=== PATIENT | male | born 1965 | race American Indian/Alaskan Native ===

== ENCOUNTER 2016-03-03 19:07 | Emergency (ER) | payer MEDICARE ==
--- NOTE | 2016-03-03 19:57 | Emergency Department Report ---
Chief Complaint: Sickle Cell Crisis Stated Complaint: SICKLE CELL PAIN Time Seen by Provider: 03/03/16 19:55 - HPI History of Present Illness: 50 y/o male complain of low back pain since this am .pt state that he have sickle cell and is current in a crisis . - ROS Review of Systems: per HPI - Exam Vital Signs: Vital Signs 03/03/16 19:13 Temperature 99.3 F Pulse Rate 87 Respiratory 16 Rate Blood Pressure 134/91 O2 Sat by Pulse 98 Oximetry Physical Exam: GENERAL: The patient is well-developed and well-nourished. Patient is in NAD. HENT: Normocephalic. Atraumatic. Patient has moist mucous membranes. Throat: No erythema, swelling or exudates. EYES: Extraocular motions are intact, PERRL NECK: Supple. No meningitic signs are noted. There is no adenopathy noted. CHEST/LUNGS: Clear to auscultation bilaterally. No wheezing, rales or rhonchi noted. There is no respiratory distress noted. HEART/CARDIOVASCULAR: Regular rate and rhythm. Normal S1 S2. No murmurs, rubs , clicks, or gallops. ABDOMEN: Abdomen is soft, nontender.. Bowel sounds normoactive. There is no abdominal distention. Negative rebound tenderness. : Deferred. SKIN: There is no rash. There is no edema. There is no diaphoresis. NEURO: The patient is A&Ox3. The patient has no focal neurologic deficits. MUSCULOSKELETAL: There is no tenderness or deformity. There is no limitation range of motion. PSYCH: Pt has appropriate mood and affect. MSE screening note: Focused history and physical exam performed. Due to findings the following was ordered: ED Disposition for MSE Condition: Stable
[2016-03-03 20:31] LABS: Hematocrit 21.1 % (35.5-45.6); Hemoglobin 7.6 gm/dl (11.8-15.2); Mean Corpuscular HGB Conc 36 % (32-34); Mean Corpuscular Hemoglobin 36 pg (28-32); Mean Corpuscular Volume 99 fl (84-94); Platelet Count 385 K/mm3 (140-440); Red Blood Count 2.13 M/mm3 (3.65-5.03); Reticulocyte % 7.79 % (0.78-2.58); White Blood Count 15.9 K/mm3 (4.5-11.0)
[2016-03-03 20:32] LABS: Red Cell Distribution Width 20.8 % (13.2-15.2)
[2016-03-03 20:40] LABS: BUN/Creatinine Ratio 12.85; Blood Urea Nitrogen 9 mg/dL (9-20); Calcium 8.8 mg/dL (8.4-10.2); Carbon Dioxide 24 mmol/L (22-30); Chloride 101.7 mmol/L (98-107); Glucose 98 mg/dL (75-100); Potassium 3.9 mmol/L (3.6-5.0); Sodium 138 mmol/L (137-145)
[2016-03-03 20:42] LABS: Anion Gap 16 mmol/L
[2016-03-03 21:18] LABS: Basophils % (Manual) 0 % (0.0-1.8); Blastocytes % (Manual) 0 %; Eosinophils % (Manual) 0 % (0.0-4.3)
[2016-03-03 21:19] LABS: Anisocytosis 1+; Microcytosis Few; Platelet Estimate Consistent w Auto; Sickle Cells 1+
[2016-03-03 21:20] LABS: Elliptocytes Few
[2016-03-03 21:21] LABS: Diff Status Complete
[2016-03-04] MEDS ORDERED: MORPHINE IM ONE
[2016-03-04] MEDS ORDERED: DILAUDID IM ONE (00:11)
[2016-03-04] MEDS ORDERED: PHENERGAN PO ONE (00:11)
[2016-03-04] MEDS ORDERED: MORPHINE ONE ×3 (00:14→00:15)
--- NOTE | 2016-03-04 00:20 | Emergency Department Report ---
HPI - General Chief Complaint: Sickle Cell Crisis Time Seen by Provider: 03/03/16 22:36 - HPI HPI: The patient's for 10-year-old male with a history of sickle cell disease, presents for evaluation of pain. The patient reports pain to the bilateral lower back since awakening this morning, greater than 12 hours prior to my evaluation. He states that his pain is 8 out of 10 in severity, throbbing in quality, exacerbated with movement of the lower back, consistent with previous episodes of sickle cell pain attacks. The patient denies blunt trauma to the back, fall, fever, chills, night sweats, saddle anesthesia, paresthesias, numbness or tingling in the legs, leg weakness, urine or bowel incontinence or retention, difficulty ambulating, or other focal neurological deficits. 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, Right hip AVN - Surgical History Past Surgical History?: No - Social History Smoking Status: Never Smoker Substance Use Type: None - Medications Home Medications: Home Medications Medication Instructions Recorded Confirmed Last Taken Type Folic Acid [Folvite] 1 mg PO QDAY #30 tablet 05/28/14 05/01/15 05/01/15 Rx HYDROcodone/APAP 7.5-325 [[place] 1 each PO Q6HR PRN #20 tablet 12/11/14 03/08/15 Unknown Rx 7.5/325] oxyCODONE /ACETAMINOPHEN [Percocet 1 - 2 tab PO Q6HR PRN #20 tablet 01/13/1508/16 Unknown Rx 5/325 mg] traMADol [Ultram 50 MG tab] 50 mg PO Q8HR PRN #30 tablet 01/13/15 03/08/15 Unknown Rx traMADol [Ultram] 50 mg PO Q6HR PRN #14 tablet 02/05/15 03/08/15 Unknown Rx traMADol [Ultram 50 MG tab] 50 mg PO Q6HR PRN #14 tablet 11/19/15 Unknown Rx oxyCODONE /ACETAMINOPHEN [Percocet 1 tab PO Q6HR PRN #14 tablet 03/04/16 Unknown Rx 5/325 mg] ED Review of Systems ROS: Stated complaint: SICKLE CELL PAIN Other details as noted in HPI Constitutional: denies: fever ENT: denies: throat or neck pain Respiratory: denies: cough, shortness of breath Cardiovascular: denies: chest pain Endocrine: denies unexplained weight loss or gain Gastrointestinal: denies: abdominal pain, nausea Genitourinary: denies: dysuria Musculoskeletal: reports back pain denies: leg swelling Skin: denies: rash Neurological: denies: headache Hematological/Lymphatic: denies: easy bleeding or easy bruising Psych: denies sadness or hopelessness Physical Exam - Physical Exam Vital Signs: Vital Signs 03/03/16 03/03/16 19:13 22:25 Temperature 99.3 F 98.6 F Pulse Rate 87 79 Respiratory 16 18 Rate Blood Pressure 134/91 Blood Pressure 123/73 [Right] O2 Sat by Pulse 98 98 Oximetry Physical Exam: General: well-nourished, well-developed, no acute distress Head: Normocephalic, atraumatic Eyes: normal sclera ENT: Mucous membranes are pink and moist Neck: trachea midline, neck supple, No neck stiffness, no cervical adenopathy Respiratory: Breath sounds equal bilaterally, no wheezing, rales, or rhonchi Cardio: S1 and S2 present, no murmurs, rubs, gallops, capillary refill is brisk Abdomen: Normoactive bowel sounds, soft abdomen, no rigidity, no guarding or rebound tenderness Chest WALL/Back: Tenderness to palpation present to bilateral lower lumbar paraspinal musculature, pain is elicited with flexion at the hip, normal active range of motion at the hip intact, no spinous step-off or obvious deformity, ipsi-lateral and contralateral straight leg raise tests are negative. On extremity testing, compartments are soft and pliable, no obvious gross motor strength deficit, 5+ motor strength, including extension of the great toe bilaterally, no muscular atrophy, spasticity, fasciculations, or clonus, no obvious gross sensation deficit including web space between 1st and 2nd toes, reflexes 2+ & symmetric on DTR testing at the knee and ankle joints, distal pulses intact. Musc: No pitting edema Skin: No rash Neuro: no facial drooping, normal speech Psych: Normal affect ED Course Vital Signs 03/03/16 03/03/16 19:13 22:25 Temperature 99.3 F 98.6 F Pulse Rate 87 79 Respiratory 16 18 Rate Blood Pressure 134/91 Blood Pressure 123/73 [Right] O2 Sat by Pulse 98 98 Oximetry ED Medical Decision Making - Lab Data Result diagrams: 03/03/16 20:05 03/03/16 20:05 - Medical Decision Making The patient was seen and examined by myself. The patient is placed on a groundwater monitoring technician and continuous pulse ox. On initial evaluation, the patient was found to be in no distress. No findings on exam concerning for cauda equina syndrome, spinal stenosis, epidural abscess, or other emergent etiology of back pain. As the patient has no midline tenderness on exam, no neuro deficits, and no findings concerning for emergent etiology of their back pain, imaging will not be obtained at this time. The patient is given an IM dose of morphine for his pain. Lab results reveal elevated reticulocyte count, and a stable hemoglobin level at patient baseline. Lab results otherwise are not concerning. The patient was reevaluated and reported that their pain was significantly improved. The patient is stable for discharge with outpatient follow-up. The patient is given follow-up and return instructions. The patient expressed understanding and agreed with the plan. The patient is discharged in stable condition. Critical care attestation.: If time is entered above; I have spent that time in minutes in the direct care of this critically ill patient, excluding procedure time. ED Disposition Clinical Impression: Sickle cell pain crisis Disposition: DISCHARGED TO HOME OR SELFCARE Is pt being admited?: No Does the pt Need Aspirin: No Condition: Stable Instructions: Sickle Cell Crisis (ED) Prescriptions: oxyCODONE /ACETAMINOPHEN [Percocet 5/325 mg] 1 tab PO Q6HR PRN #14 tablet PRN Reason: Pain Referrals: VAUGHN HOWARD JR, MD [Primary Care Provider] - 3-5 Days Time of Disposition: 00:12
[2016-03-04 00:44] VITALS: BP 122/70
== END 2016-03-04 00:43 | disposition home or self-care (01) ==
LOC: ED 19:07
DX: D57.00 Hb-SS disease with crisis, unspecified (principal)
CPT/HCPCS: 36415; 80048; 85007; 85025; 85045; 96372; 99284; J2270; Q0169

== ENCOUNTER 2016-03-27 20:25 | Emergency (ER) | payer MEDICARE ==
[2016-03-27] MEDS ORDERED: D5NS 0.2% 1,000 ML IV ONE (20:57)
[2016-03-27 22:03] LABS: Hematocrit 23.1 % (35.5-45.6); Hemoglobin 8.1 gm/dl (11.8-15.2); Mean Corpuscular HGB Conc 35 % (32-34); Mean Corpuscular Hemoglobin 35 pg (28-32); Mean Corpuscular Volume 100 fl (84-94); Platelet Count 399 K/mm3 (140-440); Red Blood Count 2.32 M/mm3 (3.65-5.03); Reticulocyte % 9.48 % (0.78-2.58); White Blood Count 14.6 K/mm3 (4.5-11.0)
[2016-03-27 22:08] LABS: Red Cell Distribution Width 22.6 % (13.2-15.2)
[2016-03-27 23:33] LABS: Blastocytes % (Manual) 0 %
[2016-03-27 23:34] LABS: Microcytosis 1+; Sickle Cells 2+; Target Cells 1+
[2016-03-27 23:35] LABS: Diff Status Complete; Large Platelets 2+; Macrocytosis 1+; Platelet Estimate Consistent w Auto
[2016-03-28] MEDS ORDERED: PHENERGAN PO ONE (02:13)
[2016-03-28] MEDS ORDERED: MORPHINE IM ONE (02:13)
--- NOTE | 2016-03-28 02:53 | Emergency Department Report ---
HPI - General Chief Complaint: Sickle Cell Crisis Time Seen by Provider: 03/28/16 02:04 - HPI HPI: This is a 51-year-old [place]er male who presents to the emergency department, dropped off by a coworker, with complaint of some low back pain going on for the past few days that he believes is a sickle cell pain crisis. The patient has an appointment with his primary care doctor, Dr. Fede Thompson, on April 04, but does not feel like he can wait that long to get some treatment. He denies any fever, chest pain, shortness breath, nausea, vomiting. He has been taking his folic acid at home but is out of his Ultram. No recent travel or sick contacts at home. He denies any problems with bowel or bladder, numbness or paresthesias or any neurological deficits. 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, Right hip AVN - Surgical History Past Surgical History?: No - Social History Smoking Status: Never Smoker Substance Use Type: None - Medications Home Medications: Home Medications Medication Instructions Recorded Confirmed Last Taken Type Folic Acid [Folvite] 1 mg PO QDAY #30 tablet 05/28/14 05/01/15 05/01/15 Rx HYDROcodone/APAP 7.5-325 [[place] 1 each PO Q6HR PRN #20 tablet 12/11/14 03/08/15 Unknown Rx 7.5/325] oxyCODONE /ACETAMINOPHEN [Percocet 1 - 2 tab PO Q6HR PRN #20 tablet 01/13/1508/16 Unknown Rx 5/325 mg] traMADol [Ultram 50 MG tab] 50 mg PO Q8HR PRN #30 tablet 01/13/15 03/08/15 Unknown Rx traMADol [Ultram] 50 mg PO Q6HR PRN #14 tablet 02/05/15 03/08/15 Unknown Rx oxyCODONE /ACETAMINOPHEN [Percocet 1 tab PO Q6HR PRN #14 tablet 03/04/16 Unknown Rx 5/325 mg] traMADol [Ultram 50 MG tab] 50 mg PO Q6HR PRN #14 tablet 03/28/16 Unknown Rx ED Review of Systems ROS: Stated complaint: SICKLE CELL Other details as noted in HPI Comment: All other systems reviewed and negative Constitutional: denies: chills, fever Eyes: denies: eye pain, eye discharge, vision change ENT: denies: ear pain, throat pain Respiratory: denies: cough, shortness of breath, wheezing Cardiovascular: denies: chest pain, palpitations Gastrointestinal: denies: abdominal pain, nausea, diarrhea Genitourinary: denies: urgency, dysuria Musculoskeletal: back pain. denies: arthralgia Skin: denies: rash, lesions Neurological: denies: headache, weakness, paresthesias Physical Exam - Physical Exam Vital Signs: Vital Signs 03/27/16 03/28/16 20:54 02:27 Temperature 98.9 F Pulse Rate 80 Respiratory 20 18 Rate Blood Pressure 130/89 O2 Sat by Pulse 99 Oximetry Physical Exam: GENERAL: The patient is well-developed well-nourished. HEENT: Normocephalic. Atraumatic. Extraocular motions are intact. Patient has moist mucous membranes. Pupils equal reactive to light bilaterally. NECK: Supple. Trachea is midline. CHEST/LUNGS: Clear to auscultation. There is no respiratory distress noted. HEART/CARDIOVASCULAR: Regular. There is no tachycardia. There is no gallop rub or murmur. ABDOMEN: Abdomen is soft, nontender. Patient has normal bowel sounds. There is no abdominal distention. SKIN: There is no rash. There is no edema. There is no diaphoresis. NEURO: The patient is awake, alert, and oriented. The patient is cooperative. The patient has no focal neurologic deficits. The patient has normal speech and gait. Cranial nerves II through XII grossly intact. MUSCULOSKELETAL: There is no tenderness or deformity. There is no limitation range of motion. There is no evidence of acute injury. Muscle strength 5 out of 5 for upper and lower extremities bilaterally including EHL. Cap refill less than 2 seconds. BACK: No midline thoracic tenderness to palpation or deformity. Patient has midline and bilateral paraspinal lumbar tenderness to palpation. ED Course Vital Signs 03/27/16 03/28/16 20:54 02:27 Temperature 98.9 F Pulse Rate 80 Respiratory 20 18 Rate Blood Pressure 130/89 O2 Sat by Pulse 99 Oximetry ED Medical Decision Making - Lab Data Result diagrams: 03/27/16 21:29 - Medical Decision Making 51-year-old male with a history of sickle cell disease presents with what is a typical sickle cell pain crisis for him. Patient's hemoglobin was 8.1 and reticulocyte count was about 9. This appears relatively consistent with previous visits. Patient does not have any fever, chest pain or shortness of breath and does not appear to consistent with any chest crisis. Vital signs stable throughout his ED course. He was given a dose of pain medication and something for nausea and upon reevaluation is feeling better. He has an appointment set up with his primary care doctor in about 1 week. He will return to the ER with any worsening of his symptoms or any acute distress. - Differential Diagnosis sickle cell pain crisis, vaso-occlusive crisis, chest syndrome, fibromyalgi Critical Care Time: No Critical care attestation.: If time is entered above; I have spent that time in minutes in the direct care of this critically ill patient, excluding procedure time. ED Disposition Clinical Impression: Sickle cell pain crisis Sickle cell disease Qualifiers: Sickle-cell associated disorders: with unspecified crisis Qualified Code(s): D57.00 - Hb-SS disease with crisis, unspecified Back pain Qualifiers: Back pain location: low back pain Chronicity: acute Back pain laterality: bilateral Sciatica presence: without sciatica Qualified Code(s): M54.5 - Low back pain Disposition: DISCHARGED TO HOME OR SELFCARE Is pt being admited?: No Condition: Stable Instructions: Sickle Cell Crisis (ED), Back Pain (ED) Additional Instructions: Please follow-up with her primary care doctor the next few days. Return to the emergency department with any worsening of your symptoms or any acute distress. You've been prescribed a medication that is sedating. Therefore this medication cannot be mixed with alcohol, or taken prior to driving, working, or being responsible for children. Prescriptions: traMADol [Ultram 50 MG tab] 50 mg PO Q6HR PRN #14 tablet PRN Reason: Pain Referrals: PRIMARY CARE, [Primary Care Provider] - 3-5 Days Time of Disposition: 03:22
[2016-03-28 03:22] VITALS: BP 127/82
== END 2016-03-28 03:40 | disposition home or self-care (01) ==
LOC: ED 20:25
DX: D57.00 Hb-SS disease with crisis, unspecified (principal); M54.5 Low back pain
CPT/HCPCS: 36415; 85007; 85025; 85045; 96372; 99283; J2270; Q0169

== ENCOUNTER 2016-04-30 19:34 | Emergency (ER) | payer MEDICARE ==
[2016-04-30 20:32] VITALS: BP 138/86
--- NOTE | 2016-04-30 21:13 | Emergency Department Report ---
Chief Complaint: Sickle Cell Crisis Stated Complaint: SICKLE CELL PAIN Time Seen by Provider: 04/30/16 21:01 - HPI History of Present Illness: Patient presents with what he states is sickle cell crisis, he states tramadol helps him. He states he is having back pain and the pain is typically in his back with a crisis. - ROS Review of Systems: All other systems unremarkable except documentation in HPI - Exam Vital Signs: Vital Signs 04/30/16 20:29 Temperature 99.2 F Pulse Rate 100 H Respiratory 20 Rate Blood Pressure 138/86 O2 Sat by Pulse 100 Oximetry Physical Exam: Gen: Male no apparent distress noted, ambulatory. Cardiovascular: Heart sounds present S1-S2, no murmur, gallop, edema or ectopy noted, 2+ pulses upper and lower extremities Respiratory: Chest symmetry with respirations, lungs clear to auscultate upper and lower lobes, respirations even and unlabored, no rales, rhonchi, crackles noted. Psych: AxOx3, answers questions appropriately, mood full range, affect normal, normal speech and tone. MSE screening note: Focused history and physical exam performed. Due to findings the following was ordered: seen by provider, laboratory studies ordered, and to go to main ED to be seen by physician ED Medical Decision Making - Medical Decision Making seen by provider, laboratory studies ordered, and to go to main ED to be seen by physician ED Disposition for MSE Condition: Stable Referrals: RICHY FLOWERS MD [Primary Care Provider] - 3-5 Days
[2016-04-30 22:20] LABS: Bilirubin,Urine NEG (Negative); Blood,Urine SM (Negative); Ketones,Urine NEG (Negative); Leukocyte Esterase,Urine NEG (Negative); Nitrite,Urine NEG (Negative)
[2016-04-30 22:22] LABS: Hematocrit 24.8 % (35.5-45.6); Hemoglobin 8.6 gm/dl (11.8-15.2); Mean Corpuscular HGB Conc 35 % (32-34); Mean Corpuscular Hemoglobin 34 pg (28-32); Mean Corpuscular Volume 99 fl (84-94); Platelet Count 438 K/mm3 (140-440); Red Blood Count 2.51 M/mm3 (3.65-5.03); Red Cell Distribution Width 19.5 % (13.2-15.2); White Blood Count 12.5 K/mm3 (4.5-11.0)
[2016-04-30 22:25] LABS: Anion Gap 18 mmol/L; Blood Urea Nitrogen 6 mg/dL (9-20); Calcium 8.6 mg/dL (8.4-10.2); Carbon Dioxide 23 mmol/L (22-30); Chloride 98.9 mmol/L (98-107); Glucose 119 mg/dL (75-100); Potassium 3.8 mmol/L (3.6-5.0); Sodium 136 mmol/L (137-145)
[2016-04-30 22:35] LABS: INR 1.18 (0.87-1.13)
[2016-04-30 23:05] LABS: Basophils % (Manual) 0 % (0.0-1.8); Blastocytes % (Manual) 0 %; Eosinophils % (Manual) 0 % (0.0-4.3)
[2016-04-30 23:06] LABS: Microcytosis 1+; Platelet Estimate Consistent w Auto; Sickle Cells 2+
[2016-04-30 23:07] LABS: Diff Status Complete; Schistocytes 1+; Target Cells 1+
[2016-04-30] MEDS ORDERED: MORPHINE IM ONE (23:47)
[2016-04-30] MEDS ORDERED: ZOFRAN IM ONE (23:47)
--- NOTE | 2016-04-30 23:52 | Emergency Department Report ---
HPI - General Chief Complaint: Sickle Cell Crisis Time Seen by Provider: 04/30/16 21:01 - HPI HPI: Room 7 The patient is a 51-year-old male presenting with a chief complaint of sickle cell pain crisis. The patient states his symptoms began this morning with low back pain consistent with previous sickle cell pain crises. Patient states he ran out of tramadol. The patient gives his pain a score of 6/10. 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, Right hip AVN - Surgical History Past Surgical History?: No - Family History Family history: no significant - Social History Smoking Status: Never Smoker Substance Use Type: None - Medications Home Medications: Home Medications Medication Instructions Recorded Confirmed Last Taken Type Folic Acid [Folvite] 1 mg PO QDAY #30 tablet 05/28/14 05/01/15 05/01/15 Rx oxyCODONE /ACETAMINOPHEN [Percocet 1 tab PO Q6HR PRN #14 tablet 03/04/16 Unknown Rx 5/325 mg] traMADol [Ultram 50 MG tab] 50 mg PO Q6HR PRN #14 tablet 03/28/16 Unknown Rx traMADol [Ultram] 50 mg PO Q6HR PRN #20 tablet 04/30/16 Unknown Rx ED Review of Systems ROS: Stated complaint: SICKLE CELL PAIN Other details as noted in HPI Comment: All other systems reviewed and negative Constitutional: denies: chills, fever Eyes: denies: eye pain, eye discharge, vision change ENT: denies: ear pain, throat pain Respiratory: denies: cough, shortness of breath, wheezing Cardiovascular: denies: chest pain, palpitations Endocrine: no symptoms reported Gastrointestinal: denies: abdominal pain, nausea, diarrhea Genitourinary: denies: urgency, dysuria Musculoskeletal: back pain Skin: denies: rash, lesions Neurological: denies: headache, weakness, paresthesias Psychiatric: denies: anxiety, depression Hematological/Lymphatic: other (sickle cell pain crisis) Physical Exam - Physical Exam Vital Signs: Vital Signs 04/30/16 20:29 Temperature 99.2 F Pulse Rate 100 H Respiratory 20 Rate Blood Pressure 138/86 O2 Sat by Pulse 100 Oximetry Physical Exam: GENERAL: The patient is well-developed well-nourished male standing on room not appearing to be in acute distress. [] HEENT: Normocephalic. Atraumatic. Extraocular motions are intact. Patient has moist mucous membranes. NECK: Supple. Trachea midline CHEST/LUNGS: Clear to auscultation. There is no respiratory distress noted. HEART/CARDIOVASCULAR: Regular. There is no tachycardia. There is no gallop rub or murmur. ABDOMEN: Abdomen is soft, nontender. Patient has normal bowel sounds. There is no abdominal distention. SKIN: There is no rash. There is no edema. There is no diaphoresis. NEURO: The patient is awake, alert, and oriented. The patient is cooperative. The patient has normal speech and gait. MUSCULOSKELETAL: There is no evidence of acute injury. ED Course Vital Signs 04/30/16 20:29 Temperature 99.2 F Pulse Rate 100 H Respiratory 20 Rate Blood Pressure 138/86 O2 Sat by Pulse 100 Oximetry ED Medical Decision Making - Lab Data Result diagrams: 04/30/16 21:53 04/30/16 21:53 Laboratory Tests 04/30/16 04/30/16 04/30/16 21:53 21:53 21:53 WBC 12.5 H RBC 2.51 L Hgb 8.6 L Hct 24.8 L MCV 99 H MCH 34 H MCHC 35 H RDW 19.5 H Plt Count 438 Add Manual Diff Complete Total Counted 100 Seg Neuts % (Manual) 62.0 Band Neutrophils % 0 Lymphocytes % (Manual) 34.0 Reactive Lymphs % (Man) 0 Monocytes % (Manual) 4.0 Eosinophils % (Manual) 0 Basophils % (Manual) 0 Metamyelocytes % 0 Myelocytes % 0 Promyelocytes % 0 Blast Cells % 0 Nucleated RBC % Not Reportable Seg Neutrophils # Man 7.8 H Band Neutrophils # 0.0 Lymphocytes # (Manual) 4.3 Abs React Lymphs (Man) 0.0 Monocytes # (Manual) 0.5 Eosinophils # (Manual) 0.0 Basophils # (Manual) 0.0 Metamyelocytes # 0.0 Myelocytes # 0.0 Promyelocytes # 0.0 Blast Cells # 0.0 WBC Morphology Not Reportable Hypersegmented Neuts Not Reportable Hyposegmented Neuts Not Reportable Hypogranular Neuts Not Reportable Smudge Cells Not Reportable Toxic Granulation Not Reportable Toxic Vacuolation Not Reportable Dohle Bodies Not Reportable Pelger-Huet Anomaly Not Reportable Zachary Rods Not Reportable Platelet Estimate Consistent w auto Clumped Platelets Not Reportable Plt Clumps, EDTA Not Reportable Large Platelets Not Reportable Giant Platelets Not Reportable Platelet Satelliting Not Reportable Plt Morphology Comment Not Reportable RBC Morphology Not Reportable Dimorphic RBCs Not Reportable Polychromasia Not Reportable Hypochromasia Not Reportable Poikilocytosis Not Reportable Anisocytosis Not Reportable Microcytosis 1+ Macrocytosis Not Reportable Spherocytes Not Reportable Pappenheimer Bodies Not Reportable Sickle Cells 2+ Target Cells 1+ Tear Drop Cells Not Reportable Ovalocytes Not Reportable Helmet Cells Not Reportable Cabrera-[place] Bodies Not Reportable [place] Rings Not Reportable [place] Cells Not Reportable Bite Cells Not Reportable Crenated Cell Not Reportable Elliptocytes Not Reportable Acanthocytes (Spur) Not Reportable Rouleaux Not Reportable Hemoglobin C Crystals Not Reportable Schistocytes 1+ Malaria parasites Not Reportable Gene Bodies Not Reportable Hem Pathologist Commnt No PT 14.9 INR 1.18 H Sodium Potassium Chloride Carbon Dioxide Anion Gap BUN Creatinine Estimated GFR BUN/Creatinine Ratio Glucose Calcium Urine Color Yellow Urine Turbidity Clear Urine pH 6.0 Ur Specific [place] 1.011 Urine Protein 100 mg/dl Urine Glucose (UA) Neg Urine Ketones Neg Urine Blood Sm Urine Nitrite Neg Urine Bilirubin Neg Urine Urobilinogen 2.0 Ur Leukocyte Esterase Neg Urine WBC (Auto) 1.0 Urine RBC (Auto) 3.0 04/30/16 21:53 WBC RBC Hgb Hct MCV MCH MCHC RDW Plt Count Add Manual Diff Total Counted Seg Neuts % (Manual) Band Neutrophils % Lymphocytes % (Manual) Reactive Lymphs % (Man) Monocytes % (Manual) Eosinophils % (Manual) Basophils % (Manual) Metamyelocytes % Myelocytes % Promyelocytes % Blast Cells % Nucleated RBC % Seg Neutrophils # Man Band Neutrophils # Lymphocytes # (Manual) Abs React Lymphs (Man) Monocytes # (Manual) Eosinophils # (Manual) Basophils # (Manual) Metamyelocytes # Myelocytes # Promyelocytes # Blast Cells # WBC Morphology Hypersegmented Neuts Hyposegmented Neuts Hypogranular Neuts Smudge Cells Toxic Granulation Toxic Vacuolation Dohle Bodies Pelger-Huet Anomaly Zachary Rods Platelet Estimate Clumped Platelets Plt Clumps, EDTA Large Platelets Giant Platelets Platelet Satelliting Plt Morphology Comment RBC Morphology Dimorphic RBCs Polychromasia Hypochromasia Poikilocytosis Anisocytosis Microcytosis Macrocytosis Spherocytes Pappenheimer Bodies Sickle Cells Target Cells Tear Drop Cells Ovalocytes Helmet Cells Cabrera-[place] Bodies [place] Rings [place] Cells Bite Cells Crenated Cell Elliptocytes Acanthocytes (Spur) Rouleaux Hemoglobin C Crystals Schistocytes Malaria parasites [place] Bodies Hem Pathologist Commnt PT INR Sodium 136 L Potassium 3.8 Chloride 98.9 Carbon Dioxide 23 Anion Gap 18 BUN 6 L Creatinine 0.6 L Estimated GFR > 60 BUN/Creatinine Ratio 10.00 Glucose 119 H Calcium 8.6 Urine Color Urine Turbidity Urine pH Ur Specific [place] Urine Protein Urine Glucose (UA) Urine Ketones Urine Blood Urine Nitrite Urine Bilirubin Urine Urobilinogen Ur Leukocyte Esterase Urine WBC (Auto) Urine RBC (Auto) - Differential Diagnosis sickle cell pain crisis, lumbar disc disease, malingering Critical care attestation.: If time is entered above; I have spent that time in minutes in the direct care of this critically ill patient, excluding procedure time. ED Disposition Clinical Impression: Back pain, Sickle cell disease Disposition: DISCHARGED TO HOME OR SELFCARE Is pt being admited?: No Does the pt Need Aspirin: No Condition: Stable Additional Instructions: Return to the emergency department immediately should you develop worsening symptoms, fever, inability to tolerate food or liquid or any other concerns. Prescriptions: traMADol [Ultram] 50 mg PO Q6HR PRN #20 tablet PRN Reason: Pain Referrals: PRIMARY CARE, [Primary Care Provider] - 3-5 Days Time of Disposition: 23:52
== END 2016-05-01 00:06 | disposition home or self-care (01) ==
LOC: ED 19:34
DX: D57.1 Sickle-cell disease without crisis (principal); Z88.6 Allergy status to analgesic agent; Z88.8 Allergy status to other drugs, medicaments and biological substances; Z79.899 Other long term (current) drug therapy
CPT/HCPCS: 36415; 80048; 81001; 85007; 85025; 85610; 96372; 99283; J2270; J2405

== ENCOUNTER 2016-06-22 12:50 | Emergency (ER) | payer MEDICARE ==
[2016-06-22 14:42] LABS: Hematocrit 21.9 % (35.5-45.6); Hemoglobin 8.1 gm/dl (11.8-15.2); Mean Corpuscular HGB Conc 37 % (32-34); Mean Corpuscular Hemoglobin 36 pg (28-32); Mean Corpuscular Volume 98 fl (84-94); Platelet Count 380 K/mm3 (140-440); Red Blood Count 2.24 M/mm3 (3.65-5.03); Reticulocyte % 6.56 % (0.78-2.58); White Blood Count 11.4 K/mm3 (4.5-11.0)
[2016-06-22 14:44] LABS: Red Cell Distribution Width 23.2 % (13.2-15.2)
[2016-06-22] MEDS ORDERED: MORPHINE IM ONE (14:58)
[2016-06-22] MEDS ORDERED: PHENERGAN PO ONE (14:58)
[2016-06-22] MEDS ORDERED: D5NS 0.2% 1,000 ML IV SCH (15:00)
--- NOTE | 2016-06-22 15:15 | Emergency Department Report ---
ED General Adult HPI - General Chief complaint: Sickle Cell Crisis Stated complaint: SICKLE CELL FLARE UP/BACK LEFT Time Seen by Provider: 06/22/16 14:51 Source: patient Mode of arrival: Ambulatory Limitations: No Limitations - History of Present Illness Initial comments: 51 y/o M w/ hx of SCC presents w/ cc of low back pain. Pt states he believes the pain 2/2 to an early scc crisis. Pt states this is the usual location of his scc pain, and consistent in quality, character as his typical scc pain. Pt states pain is dull, non radiating, with no associated urinary/fecal incontinence. Denies leg discomfort, pt able to ambulate without difficult. PT states pain is mild and wants to "head it off before it becomes more severe". Denies fever , chills. - Related Data Previous Rx's Medication Instructions Recorded Last Taken Type Folic Acid [Folvite] 1 mg PO QDAY #30 tablet 05/28/14 05/01/15 Rx oxyCODONE /ACETAMINOPHEN [Percocet 1 tab PO Q6HR PRN #14 tablet 03/04/16 Unknown Rx 5/325 mg] traMADol [Ultram 50 MG tab] 50 mg PO Q6HR PRN #14 tablet 03/28/16 Unknown Rx traMADol [Ultram] 50 mg PO Q6HR PRN #20 tablet 04/30/16 Unknown Rx Allergies Allergy/AdvReac Type Severity Reaction Status Date / Time metoclopramide HCl Allergy Hives Verified 06/22/16 14:24 [From Reglan] nalbuphine HCl [From Nubain] Allergy Hives Verified 06/22/16 14:24 ketorolac tromethamine AdvReac Hives Verified 06/22/16 14:24 [From Toradol] ED Review of Systems ROS: Stated complaint: SICKLE CELL FLARE UP/BACK LEFT Other details as noted in HPI Comment: All other systems reviewed and negative Constitutional: denies: chills, fever Eyes: denies: eye pain, eye discharge, vision change ENT: denies: ear pain, throat pain Respiratory: denies: cough, shortness of breath, wheezing Cardiovascular: denies: chest pain, palpitations Endocrine: no symptoms reported Gastrointestinal: denies: abdominal pain, nausea, diarrhea Genitourinary: denies: urgency, dysuria Musculoskeletal: denies: back pain, joint swelling, arthralgia Skin: denies: rash, lesions Neurological: denies: headache, weakness, paresthesias Psychiatric: denies: anxiety, depression Hematological/Lymphatic: denies: easy bleeding, easy bruising ED Past Medical Hx - Past Medical History Hx Sickle Cell Disease: Yes 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, Right hip AVN - Surgical History Past Surgical History?: No - Social History Smoking Status: Never Smoker Substance Use Type: Prescribed - Medications Home Medications: Home Medications Medication Instructions Recorded Confirmed Last Taken Type Folic Acid [Folvite] 1 mg PO QDAY #30 tablet 05/28/14 05/01/15 05/01/15 Rx oxyCODONE /ACETAMINOPHEN [Percocet 1 tab PO Q6HR PRN #14 tablet 03/04/16 Unknown Rx 5/325 mg] traMADol [Ultram 50 MG tab] 50 mg PO Q6HR PRN #14 tablet 03/28/16 Unknown Rx traMADol [Ultram] 50 mg PO Q6HR PRN #20 tablet 04/30/16 Unknown Rx ED Physical Exam - General Limitations: No Limitations General appearance: alert, in no apparent distress - Head Head exam: Present: atraumatic, normocephalic - Eye Eye exam: Present: normal appearance, PERRL, EOMI - ENT ENT exam: Present: normal exam, normal orophraynx, mucous membranes moist - Neck Neck exam: Present: normal inspection - Respiratory Respiratory exam: Present: normal lung sounds bilaterally. Absent: respiratory distress - Cardiovascular Cardiovascular Exam: Present: regular rate, normal rhythm, normal heart sounds, other (2+ Pulses). Absent: systolic murmur, diastolic murmur, rubs, gallop - GI/Abdominal GI/Abdominal exam: Present: soft, normal bowel sounds - Rectal Rectal exam: Present: deferred - Extremities Exam Extremities exam: Present: normal inspection, full ROM - Back Exam Back exam: Present: normal inspection, full ROM, other (no tenderness to palpation or percussion) - Neurological Exam Neurological exam: Present: alert, altered, oriented X3, CN II-XII intact, normal gait, motor sensory deficit, reflexes normal (2+ patellar reflexes, 5/5 hip flexors and dorsiflexion), other - Psychiatric Psychiatric exam: Present: normal affect, normal mood - Skin Skin exam: Present: warm, dry, intact, normal color. Absent: rash ED Course Vital Signs 06/22/16 14:25 Temperature 98.4 F Pulse Rate 74 Respiratory 17 Rate Blood Pressure 131/73 O2 Sat by Pulse 95 Oximetry ED Medical Decision Making - Lab Data Result diagrams: 06/22/16 14:32 - Medical Decision Making Pt has hx of SCC, states pain c/w usual sickle cell discomfort. Nml neuro exam , pt ambulating comfortably. Bedside u/s notes no AAA (pmd 1.7 1.72 1.6 cm), post void residual of 0, as such I feel vertebral oseteo, abscess, or cauda equina unlikely. Will give pt back pain precautions. Pt received 8mg IM morphine, 25 mg po phenergan, reassessment noted pain resolved. Backpain is lumbar, mild, gradual as such I feel dissection unlikely. Critical care attestation.: If time is entered above; I have spent that time in minutes in the direct care of this critically ill patient, excluding procedure time. ED Disposition Clinical Impression: Sickle cell anemia with crisis Back pain Qualifiers: Back pain location: low back pain Chronicity: acute Back pain laterality: midline Sciatica presence: without sciatica Qualified Code(s): M54.5 - Low back pain Disposition: DISCHARGED TO HOME OR SELFCARE Is pt being admited?: No Does the pt Need Aspirin: No Condition: Stable Instructions: Acute Low Back Pain (ED) Additional Instructions: Please follow up with primary care doctor on Friday ,return if you have any new concerning symptoms such as fever or worsening of existing symptoms Referrals: VAUGHN HOWARD JR, MD [Primary Care Provider] - 3-5 Days Time of Disposition: 15:30
[2016-06-22 15:28] LABS: Blastocytes % (Manual) 0 %
[2016-06-22 15:29] LABS: Anisocytosis 2+; Elliptocytes 1+; Sickle Cells 2+
[2016-06-22 15:30] LABS: Hypochromasia 2+; Microcytosis 1+; Poikilocytosis 2+
[2016-06-22 15:32] LABS: Polychromasia Few
[2016-06-22 15:33] LABS: Giant Platelets Few; Platelet Estimate Consistent w Auto; Schistocytes 2+; Target Cells Few
[2016-06-22 15:36] LABS: Diff Status Complete
[2016-06-22 15:38] LABS: Immature Retic Fraction 0.7
[2016-06-22 17:35] VITALS: BP 120/84
== END 2016-06-22 17:00 | disposition home or self-care (01) ==
LOC: ED 12:50
DX: D57.00 Hb-SS disease with crisis, unspecified (principal); M54.5 Low back pain
CPT/HCPCS: 36415; 85007; 85025; 85045; 96372; 99283; J2270; Q0169

== ENCOUNTER 2016-08-03 17:22 | Emergency (ER) | payer MEDICARE ==
[2016-08-03 23:41] LABS: Hematocrit 23.4 % (35.5-45.6); Hemoglobin 8.2 gm/dl (11.8-15.2); Mean Corpuscular HGB Conc 35 % (32-34); Mean Corpuscular Hemoglobin 35 pg (28-32); Mean Corpuscular Volume 99 fl (84-94); Platelet Count 343 K/mm3 (140-440); Red Blood Count 2.36 M/mm3 (3.65-5.03); Reticulocyte % 6.04 % (0.78-2.58); White Blood Count 14.3 K/mm3 (4.5-11.0)
[2016-08-03] MEDS ORDERED: D5NS 0.2% 1,000 ML IV SCH (23:45)
[2016-08-03 23:47] LABS: Red Cell Distribution Width 22.7 % (13.2-15.2)
[2016-08-03] MEDS ORDERED: ULTRAM PO ONE (23:47)
[2016-08-03] MEDS ORDERED: PHENERGAN PO ONE (23:56)
[2016-08-03] MEDS ORDERED: MORPHINE IM ONE (23:57)
--- NOTE | 2016-08-03 23:58 | Emergency Department Report ---
HPI - General Chief Complaint: Sickle Cell Crisis Time Seen by Provider: 08/03/16 23:53 - HPI HPI: 51-year-old male past medical history sickle cell disease presents with complaint of acute on chronic lower back and bilateral upper thigh pain typical of his sickle cell crisis. Patient states that this episode started 2 days ago , states he ran out of his tramadol which she typically takes for control of his pain crisis. On exam patient is awake alert oriented speaking in full sentences no signs of respiratory distress states that pain is currently 6 out of 10 and the pain isn't classic areas for his sickle cell crisis. Denies any chest pain denies any cough denies any fever or chills. Denies any palpitations or shortness of breath. 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 denies: chills, fever Eyes: denies: eye pain, eye discharge, vision change ENT: denies: ear pain, throat pain Respiratory: denies: cough, shortness of breath, wheezing Cardiovascular: denies: chest pain, palpitations Endocrine: no symptoms reported Gastrointestinal: denies: abdominal pain, nausea, diarrhea Genitourinary: denies: urgency, dysuria Musculoskeletal: denies: back pain, joint swelling, arthralgia Skin: denies: rash, lesions Neurological: denies: headache, weakness, paresthesias Psychiatric: denies: anxiety, depression Hematological/Lymphatic: denies: easy bleeding, easy bruising Physical Exam - Physical Exam Vital Signs: Vital Signs 08/03/16 17:49 Temperature 99.1 F Pulse Rate 94 H Respiratory 16 Rate Blood Pressure 124/79 O2 Sat by Pulse 95 Oximetry General: General: Well appearing, well nourished, in no distress. Oriented x 3, normal mood and affect . Ambulating without difficulty. Head: Normocephalic, atraumatic, no visible or palpable masses, depressions, or scaring. Eyes: EOMI intact, PERRLA Neck: Supple, without lesions, bruits, or adenopathy, thyroid non-enlarged and non-tender Heart: No cardiomegaly or thrills; regular rate and rhythm, no murmur or gallop Lungs: Clear to auscultation bilaterally Abdomen: Bowel sounds normal, no tenderness, organomegaly, masses, or hernia Back: Spine normal without deformity or tenderness, no CVA tenderness Extremities: Distal pulses bilateral lower and upper extremities intact including radial, dorsalis pedis posterior tibial pulses N Neurologic: CN 2-12 normal. Strength 5 out of 5 all extremities Psychiatric: Oriented X3, normal mood and affect. ED Course Vital Signs 08/03/16 17:49 Temperature 99.1 F Pulse Rate 94 H Respiratory 16 Rate Blood Pressure 124/79 O2 Sat by Pulse 95 Oximetry ED Medical Decision Making - Lab Data Result diagrams: 08/03/16 23:25 - Medical Decision Making A/P: Moderate sickle cell pain crisis 1-case discussed with Dr. Bahena 2-tramadol 50 mg every 6 when necessary 3-patient denies any chest pain fevers chills nausea or vomiting denies any shortness of breath, vital signs stable 4-elevation in reticulocyte count Critical care attestation.: If time is entered above; I have spent that time in minutes in the direct care of this critically ill patient, excluding procedure time. ED Disposition Clinical Impression: Sickle cell pain crisis Disposition: DISCHARGED TO HOME OR SELFCARE Is pt being admited?: No Does the pt Need Aspirin: No Condition: Stable Instructions: Sickle Cell Crisis (ED) Prescriptions: traMADol [Ultram 50 MG tab] 50 mg PO Q6HR PRN #25 tablet PRN Reason: Pain Referrals: VAUGHN HOWARD JR, MD [Primary Care Provider] - 3-5 Days Time of Disposition: 23:57
[2016-08-04] MEDS ORDERED: MORPHINE ONE (00:40)
[2016-08-04 00:51] VITALS: BP 133/80
[2016-08-04 01:21] LABS: Anisocytosis 2+; Basophils % (Manual) 0 % (0.0-1.8); Blastocytes % (Manual) 0 %; Elliptocytes Few; Sickle Cells 2+
[2016-08-04 01:22] LABS: Poikilocytosis 2+
[2016-08-04 01:23] LABS: Diff Status Complete; Giant Platelets Few; Hypochromasia 1+
== END 2016-08-04 00:51 | disposition home or self-care (01) ==
LOC: ED 17:22
DX: D57.00 Hb-SS disease with crisis, unspecified (principal)
CPT/HCPCS: 36415; 85007; 85025; 85045; 96372; 99283; J2270; Q0169

== ENCOUNTER 2016-11-01 22:40 | Emergency (ER) | payer MEDICARE ==
[2016-11-02 00:06] VITALS: BP 127/71
[2016-11-02 00:24] LABS: Hemoglobin 7.6 gm/dl (11.8-15.2); Mean Corpuscular HGB Conc 34 % (32-34); Mean Corpuscular Hemoglobin 34 pg (28-32); Mean Corpuscular Volume 98 fl (84-94); Platelet Count 332 K/mm3 (140-440); Red Blood Count 2.24 M/mm3 (3.65-5.03); Reticulocyte % 8.36 % (0.78-2.58); White Blood Count 14.8 K/mm3 (4.5-11.0)
[2016-11-02 00:33] LABS: Red Cell Distribution Width 23.8 % (13.2-15.2)
[2016-11-02 00:47] LABS: Anion Gap 18 mmol/L; BUN/Creatinine Ratio 14.28; Blood Urea Nitrogen 10 mg/dL (9-20); Calcium 8.8 mg/dL (8.4-10.2); Carbon Dioxide 21 mmol/L (22-30); Chloride 105.5 mmol/L (98-107); Glucose 90 mg/dL (75-100); Potassium 4.9 mmol/L (3.6-5.0); Sodium 140 mmol/L (137-145)
[2016-11-02] MEDS ORDERED: MORPHINE IM ONE (01:32)
--- NOTE | 2016-11-02 01:56 | Emergency Department Report ---
ED General Adult HPI - General Chief complaint: Pain General Stated complaint: SICKLE CELL PAIN Time Seen by Provider: 11/02/16 01:27 Source: patient Mode of arrival: Ambulatory Limitations: No Limitations - History of Present Illness Initial comments: Patient is a 51-year-old male past medical history of sickle cell anemia who presents with sickle cell pain. Patient states that his pain is moderate and it is a 7 out of 10. It is located in his back, shoulders. He states that the pain is an achy type of pain which does not radiate this constant pain medication makes the pain better and cold makes it worse. Patient states his pain is typical for his sickle cell pain. Patient denies having any cough or any chest pain or any fever. - Related Data Previous Rx's Medication Instructions Recorded Last Taken Type Folic Acid [Folvite] 1 mg PO QDAY #30 tablet 05/28/14 05/01/15 Rx traMADol [Ultram 50 MG tab] 50 mg PO Q6HR PRN #25 tablet 08/03/16 Unknown Rx Oxycodone HCl/Acetaminophen 1 each PO Q6HR PRN #7 tablet 11/02/16 Unknown Rx [Percocet 10/325 mg] traMADol [Ultram 50 MG tab] 50 mg PO Q6HR PRN #20 tablet 11/02/16 Unknown Rx Allergies Allergy/AdvReac Type Severity Reaction Status Date / Time metoclopramide HCl Allergy Hives Verified 06/22/16 14:24 [From Reglan] nalbuphine HCl [From Nubain] Allergy Hives Verified 06/22/16 14:24 ketorolac tromethamine AdvReac Hives Verified 06/22/16 14:24 [From Toradol] ED Review of Systems ROS: Stated complaint: SICKLE CELL PAIN Other details as noted in HPI Constitutional: denies: chills, fever Eyes: denies: eye pain, eye discharge, vision change ENT: denies: ear pain, throat pain Respiratory: denies: cough, shortness of breath, wheezing Cardiovascular: denies: chest pain, palpitations Endocrine: no symptoms reported Gastrointestinal: denies: abdominal pain, nausea, diarrhea Genitourinary: denies: urgency, dysuria Musculoskeletal: back pain, myalgia. 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, Right hip AVN - Surgical History Past Surgical History?: No - Social History Smoking Status: Never Smoker Substance Use Type: None - Medications Home Medications: Home Medications Medication Instructions Recorded Confirmed Last Taken Type Folic Acid [Folvite] 1 mg PO QDAY #30 tablet 05/28/14 05/01/15 05/01/15 Rx traMADol [Ultram 50 MG tab] 50 mg PO Q6HR PRN #25 tablet 08/03/16 Unknown Rx Oxycodone HCl/Acetaminophen 1 each PO Q6HR PRN #7 tablet 11/02/16 Unknown Rx [Percocet 10/325 mg] traMADol [Ultram 50 MG tab] 50 mg PO Q6HR PRN #20 tablet 11/02/16 Unknown Rx ED Physical Exam - General Limitations: No Limitations General appearance: alert, in no apparent distress - Head Head exam: Present: atraumatic, normocephalic - Eye Eye exam: Present: normal appearance - ENT ENT exam: Present: mucous membranes moist - Neck Neck exam: Present: normal inspection - Respiratory Respiratory exam: Present: normal lung sounds bilaterally. Absent: respiratory distress - Cardiovascular Cardiovascular Exam: Present: regular rate, normal rhythm. Absent: systolic murmur, diastolic murmur, rubs, gallop - GI/Abdominal GI/Abdominal exam: Present: soft, normal bowel sounds - Rectal Rectal exam: Present: deferred - Extremities Exam Extremities exam: Present: normal inspection - Back Exam Back exam: Present: normal inspection - Neurological Exam Neurological exam: Present: alert, oriented X3 - Psychiatric Psychiatric exam: Present: normal affect, normal mood - Skin Skin exam: Present: warm, dry, intact, normal color. Absent: rash ED Course Vital Signs 11/02/16 00:01 Temperature 99.1 F Pulse Rate 67 Respiratory 16 Rate Blood Pressure 127/71 O2 Sat by Pulse 96 Oximetry ED Medical Decision Making - Lab Data Result diagrams: 11/02/16 00:10 11/02/16 00:10 Lab Results 11/02/16 11/02/16 Range/Units 00:10 00:10 WBC 14.8 H (4.5-11.0) K/mm3 RBC 2.24 L (3.65-5.03) M/mm3 Hgb 7.6 L (11.8-15.2) gm/dl Hct 22.0 L (35.5-45.6) % MCV 98 H (84-94) fl MCH 34 H (28-32) pg MCHC 34 (32-34) % RDW 23.8 H (13.2-15.2) % Plt Count 332 (140-440) K/mm3 Lymph # Telephone Clerks Supervisor Add Manual Diff Complete Total Counted 100 Seg Neuts % (Manual) 51.0 (40.0-70.0) % Band Neutrophils % 4.0 % Lymphocytes % (Manual) 29.0 (13.4-35.0) % Reactive Lymphs % (Man) 0 % Monocytes % (Manual) 7.0 (0.0-7.3) % Eosinophils % (Manual) 7.0 H (0.0-4.3) % Basophils % (Manual) 0 (0.0-1.8) % Metamyelocytes % 2.0 % Myelocytes % 0 % Promyelocytes % 0 % Blast Cells % 0 % Nucleated RBC % Not Reportable Seg Neutrophils # Man 7.5 (1.8-7.7) K/mm3 Band Neutrophils # 0.6 K/mm3 Lymphocytes # (Manual) 4.3 (1.2-5.4) K/mm3 Abs React Lymphs (Man) 0.0 K/mm3 Monocytes # (Manual) 1.0 H (0.0-0.8) K/mm3 Eosinophils # (Manual) 1.0 H (0.0-0.4) K/mm3 Basophils # (Manual) 0.0 (0.0-0.1) K/mm3 Metamyelocytes # 0.3 K/mm3 Myelocytes # 0.0 K/mm3 Promyelocytes # 0.0 K/mm3 Blast Cells # 0.0 K/mm3 WBC Morphology Not Reportable Hypersegmented Neuts Not Reportable Hyposegmented Neuts Not Reportable Hypogranular Neuts Not Reportable Smudge Cells Not Reportable Toxic Granulation Not Reportable Toxic Vacuolation Not Reportable Dohle Bodies Not Reportable Pelger-Huet Anomaly Not Reportable Zachary Rods Not Reportable Platelet Estimate Appears normal Clumped Platelets Not Reportable Plt Clumps, EDTA Not Reportable Large Platelets Not Reportable Giant Platelets Few Platelet Satelliting Not Reportable Plt Morphology Comment Not Reportable RBC Morphology Not Reportable Dimorphic RBCs Not Reportable Polychromasia Not Reportable Hypochromasia 1+ Poikilocytosis 2+ Anisocytosis 2+ Microcytosis Not Reportable Macrocytosis Not Reportable Spherocytes Not Reportable Pappenheimer Bodies Not Reportable Sickle Cells 1+ Target Cells 1+ Tear Drop Cells Not Reportable Ovalocytes Not Reportable Helmet Cells Not Reportable Cabrera-Coggon Bodies Not Reportable Coleman Rings Not Reportable [place] Cells Not Reportable Bite Cells Not Reportable Crenated Cell Not Reportable Elliptocytes 1+ Acanthocytes (Spur) Not Reportable Rouleaux Not Reportable Hemoglobin C Crystals Not Reportable Schistocytes Not Reportable Malaria parasites Not Reportable Percent Retic 8.36 H (0.78-2.58) % Gene Bodies Not Reportable Hem Pathologist Commnt No Sodium 140 (137-145) mmol/L Potassium 4.9 (3.6-5.0) mmol/L Chloride 105.5 (98-107) mmol/L Carbon Dioxide 21 L (22-30) mmol/L Anion Gap 18 mmol/L BUN 10 (9-20) mg/dL Creatinine 0.7 L (0.8-1.5) mg/dL Estimated GFR > 60 ml/min BUN/Creatinine Ratio 14.28 % Glucose 90 (75-100) mg/dL Calcium 8.8 (8.4-10.2) mg/dL - Medical Decision Making Chief medical diagnosis: Sickle cell anemia pain Differential diagnosis: Electrolyte abnormality, vaso-occlusive crisis I will obtain CBC, CMP and reticulocyte count Patient's laboratory findings show no remarkable findings. I will treat patient with IM analgesic medication. Patient is feeling better after IM analgesic medication will send patient home with a short dose of oral analgesic medication patient has no other concerns at this time. Critical care attestation.: If time is entered above; I have spent that time in minutes in the direct care of this critically ill patient, excluding procedure time. ED Disposition Clinical Impression: Sickle cell anemia with pain Disposition: DC-01 TO HOME OR SELFCARE Is pt being admited?: No Does the pt Need Aspirin: No Condition: Stable Instructions: Sickle Cell Crisis (ED) Prescriptions: Oxycodone HCl/Acetaminophen [Percocet 10/325 mg] 1 each PO Q6HR PRN #7 tablet PRN Reason: Pain traMADol [Ultram 50 MG tab] 50 mg PO Q6HR PRN #20 tablet PRN Reason: Pain Referrals: PRIMARY CARE, [Primary Care Provider] - 3-5 Days Time of Disposition: 01:51
[2016-11-02 03:41] LABS: Basophils % (Manual) 0 % (0.0-1.8); Blastocytes % (Manual) 0 %
[2016-11-02 03:42] LABS: Anisocytosis 2+; Elliptocytes 1+; Giant Platelets Few; Hypochromasia 1+; Poikilocytosis 2+; Sickle Cells 1+; Target Cells 1+
[2016-11-02 03:43] LABS: Diff Status Complete
== END 2016-11-02 03:45 | disposition home or self-care (01) ==
LOC: ED 22:40
DX: D57.1 Sickle-cell disease without crisis (principal); Z88.8 Allergy status to other drugs, medicaments and biological substances
CPT/HCPCS: 36415; 80048; 85007; 85025; 85045; 96372; 99283; J2270

== ENCOUNTER 2017-01-26 21:34 | Emergency (ER) | payer MEDICARE ==
[2017-01-26 21:59] VITALS: BP 139/83
[2017-01-26] MEDS ORDERED: D5NS 0.2% 1,000 ML IV SCH (22:00)
[2017-01-26 23:16] LABS: Hemoglobin 7.2 gm/dl (11.8-15.2); Mean Corpuscular HGB Conc 37 % (32-34); Mean Corpuscular Hemoglobin 36 pg (28-32); Mean Corpuscular Volume 99 fl (84-94); Platelet Count 343 K/mm3 (140-440); Reticulocyte % 10.55 % (0.78-2.58); White Blood Count 15.3 K/mm3 (4.5-11.0)
[2017-01-26 23:21] LABS: Hematocrit 19.8 % (35.5-45.6); Red Cell Distribution Width 24.4 % (13.2-15.2)
[2017-01-27 00:09] LABS: Anisocytosis 2+; Blastocytes % (Manual) 0 %; Diff Status Complete; Hypochromasia 1+; Platelet Estimate Consistent w Auto; Polychromasia Rare; Sickle Cells 2+; Target Cells 1+
[2017-01-27] MEDS ORDERED: MORPHINE IM ONE (01:04)
[2017-01-27] MEDS ORDERED: PHENERGAN PO ONE (01:04)
--- NOTE | 2017-01-27 01:12 | Emergency Department Report ---
ED Back Pain/Injury HPI - General Chief Complaint: Back Pain/Injury Stated Complaint: SICKLE CELL CRISIS/BACK PAIN Time Seen by Provider: 01/27/17 00:49 Source: patient Limitations: No Limitations - History of Present Illness Initial Comments: 51 YO MALE WITH SICKLE CELL DISEASE HER WITH RECURRENT LOWER BACK PAIN . HE DENIES CHEST PAIN OR PAIN ANYWHERE ELSE HE IS NOT SHORT OF BREATH. MD Complaint: back pain -: Gradual Similar Symptoms Previously: Yes Place: home Radiation: none Severity: moderate Quality: aching Consistency: constant Improves With: movement Worsens With: movement Context: other (SS) Associated Symptoms: denies other symptoms - Related Data Previous Rx's Medication Instructions Recorded Last Taken Type Folic Acid [Folvite] 1 mg PO QDAY #30 tablet 05/28/14 05/01/15 Rx traMADol [Ultram 50 MG tab] 50 mg PO Q6HR PRN #20 tablet 11/02/16 Unknown Rx Oxycodone HCl/Acetaminophen 1 each PO Q6HR PRN #14 tablet 01/27/17 Unknown Rx [Percocet 10/325 mg] traMADol [Ultram 50 MG tab] 50 mg PO Q6HR PRN #25 tablet 01/27/17 Unknown Rx Allergies Allergy/AdvReac Type Severity Reaction Status Date / Time metoclopramide HCl Allergy Hives Verified 06/22/16 14:24 [From Reglan] nalbuphine HCl [From Nubain] Allergy Hives Verified 06/22/16 14:24 ketorolac tromethamine AdvReac Hives Verified 06/22/16 14:24 [From Toradol] ED Review of Systems ROS: Stated complaint: SICKLE CELL CRISIS/BACK PAIN Other details as noted in HPI Constitutional: denies: chills, fever Eyes: denies: eye pain, eye discharge, vision change ENT: denies: ear pain, throat pain Respiratory: denies: cough, shortness of breath, wheezing Cardiovascular: denies: chest pain, palpitations Endocrine: no symptoms reported Gastrointestinal: denies: abdominal pain, nausea, diarrhea Genitourinary: denies: urgency, dysuria Musculoskeletal: back pain. 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, Right hip AVN - Social History Smoking Status: Never Smoker Substance Use Type: None - Medications Home Medications: Home Medications Medication Instructions Recorded Confirmed Last Taken Type Folic Acid [Folvite] 1 mg PO QDAY #30 tablet 05/28/14 05/01/15 05/01/15 Rx traMADol [Ultram 50 MG tab] 50 mg PO Q6HR PRN #20 tablet 11/02/16 Unknown Rx Oxycodone HCl/Acetaminophen 1 each PO Q6HR PRN #14 tablet 01/27/17 Unknown Rx [Percocet 10/325 mg] traMADol [Ultram 50 MG tab] 50 mg PO Q6HR PRN #25 tablet 01/27/17 Unknown Rx ED Physical Exam - General Limitations: No Limitations General appearance: alert, in no apparent distress - Head Head exam: Present: atraumatic, normocephalic - Eye Eye exam: Present: normal appearance, EOMI - ENT ENT exam: Present: mucous membranes moist - Neck Neck exam: Present: normal inspection - Respiratory Respiratory exam: Present: normal lung sounds bilaterally. Absent: respiratory distress - Cardiovascular Cardiovascular Exam: Present: regular rate, normal rhythm. Absent: systolic murmur, diastolic murmur, rubs, gallop - GI/Abdominal GI/Abdominal exam: Present: soft, normal bowel sounds - Rectal Rectal exam: Present: deferred - Extremities Exam Extremities exam: Present: normal inspection, full ROM - Back Exam Back exam: Present: normal inspection, full ROM, tenderness (LOWER LUMBAR PARASPINAL AREA) - Neurological Exam Neurological exam: Present: alert, oriented X3, CN II-XII intact - Psychiatric Psychiatric exam: Present: normal affect, normal mood - Skin Skin exam: Present: warm, dry, intact, normal color. Absent: rash ED Course Vital Signs 01/26/17 01/26/17 21:37 21:50 Temperature 98.6 F 98.6 F Pulse Rate 78 67 Respiratory 18 18 Rate Blood Pressure 139/83 139/83 Blood Pressure 139/83 [Left] O2 Sat by Pulse 96 96 Oximetry ED Medical Decision Making - Lab Data Result diagrams: 01/26/17 22:46 Critical care attestation.: If time is entered above; I have spent that time in minutes in the direct care of this critically ill patient, excluding procedure time. ED Disposition Clinical Impression: Sickle cell anemia Qualifiers: Sickle-cell associated disorders: with unspecified crisis Qualified Code(s): D57.00 - Hb-SS disease with crisis, unspecified; D57.0 - Hb-SS disease with crisis Disposition: TO HOME OR SELFCARE Is pt being admited?: No Does the pt Need Aspirin: No Condition: Stable Prescriptions: Oxycodone HCl/Acetaminophen [Percocet 10/325 mg] 1 each PO Q6HR PRN #14 tablet PRN Reason: Pain traMADol [Ultram 50 MG tab] 50 mg PO Q6HR PRN #25 tablet PRN Reason: Pain Referrals: PRIMARY CARE, [Primary Care Provider] - 3-5 Days
== END 2017-01-27 01:40 | disposition home or self-care (01) ==
LOC: ED 21:34
DX: D57.00 Hb-SS disease with crisis, unspecified (principal); Z88.8 Allergy status to other drugs, medicaments and biological substances
CPT/HCPCS: 36415; 85007; 85025; 85045; 96372; 99283; J2270; Q0169

== ENCOUNTER 2017-06-12 17:38 | Emergency (ER) | payer MEDICARE ==
[2017-06-12] MEDS ORDERED: D5NS 0.2% 1,000 ML IV SCH (18:00)
[2017-06-12 18:25] LABS: Hematocrit 20.3 % (35.5-45.6); Hemoglobin 7.3 gm/dl (11.8-15.2); Mean Corpuscular HGB Conc 36 % (32-34); Mean Corpuscular Hemoglobin 36 pg (28-32); Mean Corpuscular Volume 99 fl (84-94); Platelet Count 391 K/mm3 (140-440); Red Blood Count 2.05 M/mm3 (3.65-5.03)
[2017-06-12 18:36] LABS: Red Cell Distribution Width 24.2 % (13.2-15.2)
[2017-06-12 19:05] LABS: Basophils % (Manual) 0 % (0.0-1.8); Eosinophils % (Manual) 0 % (0.0-4.3); Sickle Cells 2+; Total Cells Counted 100
[2017-06-12 19:06] LABS: Anisocytosis 2+
[2017-06-12 19:07] LABS: Platelet Estimate Consistent w Auto; Target Cells 1+
[2017-06-13] MEDS ORDERED: DILAUDID IV ONE (02:16)
[2017-06-13] MEDS ORDERED: ZOFRAN IV ONE (02:16)
[2017-06-13] MEDS ORDERED: MORPHINE IM ONE (05:14)
[2017-06-13] MEDS ORDERED: PHENERGAN PO ONE (05:14)
--- NOTE | 2017-06-13 05:25 | Emergency Department Report ---
ED General Adult HPI - General Chief complaint: Sickle Cell Crisis Stated complaint: SICKLE CELL/BACK PAIN Time Seen by Provider: 06/13/17 02:16 Source: patient Mode of arrival: Ambulatory Limitations: No Limitations - History of Present Illness Initial comments: History of sickle cell disease since having his typical vaso-occlusive crisis here for evaluation. He setting back pain denies headache fever and neck pain stiff neck rash cough chest pain abdominal pain or other complaints -: Gradual Location: back Severity scale (0 -10): 0 Quality: burning Improves with: none, medication Associated Symptoms: denies other symptoms. denies: confusion, chest pain, cough, diaphoresis, fever/chills, headaches, loss of appetite, malaise, nausea/ vomiting, rash, seizure, shortness of breath, syncope, weakness - Related Data Previous Rx's Medication Instructions Recorded Last Taken Type Folic Acid [Folvite] 1 mg PO QDAY #30 tablet 05/28/14 05/01/15 Rx traMADol [Ultram 50 MG tab] 50 mg PO Q6HR PRN #20 tablet 11/02/16 Unknown Rx Oxycodone HCl/Acetaminophen 1 each PO Q6HR PRN #14 tablet 01/27/17 Unknown Rx [Percocet 10/325 mg] traMADol [Ultram 50 MG tab] 50 mg PO Q6HR PRN #25 tablet 01/27/17 Unknown Rx Allergies Allergy/AdvReac Type Severity Reaction Status Date / Time metoclopramide HCl Allergy Hives Verified 06/12/17 17:42 [From Reglan] nalbuphine HCl [From Nubain] Allergy Hives Verified 06/12/17 17:42 ketorolac tromethamine AdvReac Hives Verified 06/12/17 17:42 [From Toradol] ED Review of Systems ROS: Stated complaint: SICKLE CELL/BACK PAIN Other details as noted in HPI Comment: All other systems reviewed and negative Constitutional: denies: diaphoresis, fever, malaise Respiratory: denies: shortness of breath, SOB with exertion, SOB at rest, stridor Cardiovascular: denies: chest pain, palpitations, dyspnea on exertion, orthopnea , edema, syncope, paroxysmal nocturnal dyspnea Gastrointestinal: denies: abdominal pain, nausea, vomiting, diarrhea, constipation, hematemesis, melena, hematochezia Musculoskeletal: back pain, arthralgia, myalgia Skin: denies: change in color, pruritus Neurological: denies: headache, weakness, numbness, paresthesias, confusion, abnormal gait, vertigo ED Past Medical Hx - Past Medical History Hx Sickle Cell Disease: Yes 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, Right hip AVN - Social History Smoking Status: Never Smoker Substance Use Type: None - Medications Home Medications: Home Medications Medication Instructions Recorded Confirmed Last Taken Type Folic Acid [Folvite] 1 mg PO QDAY #30 tablet 05/28/14 05/01/15 05/01/15 Rx traMADol [Ultram 50 MG tab] 50 mg PO Q6HR PRN #20 tablet 11/02/16 Unknown Rx Oxycodone HCl/Acetaminophen 1 each PO Q6HR PRN #14 tablet 01/27/17 Unknown Rx [Percocet 10/325 mg] traMADol [Ultram 50 MG tab] 50 mg PO Q6HR PRN #25 tablet 01/27/17 Unknown Rx ED Physical Exam - General Limitations: No Limitations General appearance: alert, in no apparent distress - Head Head exam: Present: atraumatic, normocephalic - Eye Eye exam: Present: PERRL, EOMI - ENT ENT exam: Present: normal exam, normal orophraynx - Neck Neck exam: Present: normal inspection. Absent: tenderness, meningismus - Respiratory Respiratory exam: Present: normal lung sounds bilaterally. Absent: respiratory distress, wheezes, rales, rhonchi, stridor, chest wall tenderness, accessory muscle use, prolonged expiratory - Cardiovascular Cardiovascular Exam: Present: regular rate, normal rhythm - GI/Abdominal GI/Abdominal exam: Present: soft. Absent: tenderness, guarding, rebound, rigid , mass, bruit, pulsatile mass - Extremities Exam Extremities exam: Present: normal inspection, normal capillary refill. Absent: full ROM, tenderness, pedal edema, joint swelling, calf tenderness - Back Exam Back exam: Present: normal inspection, muscle spasm. Absent: CVA tenderness (R) , CVA tenderness (L), vertebral tenderness - Neurological Exam Neurological exam: Present: alert, oriented X3, CN II-XII intact. Absent: motor sensory deficit - Skin Skin exam: Present: warm, dry. Absent: erythema, urticaria, vesicles, petechiae ED Course Vital Signs 06/12/17 17:42 Temperature 99.3 F Pulse Rate 86 Respiratory 18 Rate Blood Pressure 136/70 O2 Sat by Pulse 95 Oximetry ED Medical Decision Making - Lab Data Result diagrams: 06/12/17 17:55 - Medical Decision Making Laboratory studies do show chronic anemia but he is at baseline with this he also has a particular wound. He does not appear septic he does not appear to have any other acute problems except his he also plays occlusive crisis he was given pain medicine he will see his regular doctor. Return forworse Critical care attestation.: If time is entered above; I have spent that time in minutes in the direct care of this critically ill patient, excluding procedure time. ED Disposition Clinical Impression: Vasoocclusive sickle cell crisis Disposition: DC-01 TO HOME OR SELFCARE Is pt being admited?: No Condition: Stable Instructions: Sickle Cell Crisis (ED) Additional Instructions: see your regular doctor or return if new alarming symptoms Referrals: VAUGHN HOWARD JR, MD [Primary Care Provider] - 3-5 Days Time of Disposition: 05:26
[2017-06-13 05:43] VITALS: BP 118/78
== END 2017-06-13 05:50 | disposition home or self-care (01) ==
LOC: ED 17:38
DX: D57.00 Hb-SS disease with crisis, unspecified (principal)
CPT/HCPCS: 36415; 85007; 85025; 85045; 96360; 96361; 96372; 99283; J2270; Q0169

== ENCOUNTER 2017-07-29 20:17 | Emergency (ER) | payer MEDICARE ==
[2017-07-29 21:48] LABS: Hematocrit 21.6 % (35.5-45.6); Hemoglobin 7.6 gm/dl (11.8-15.2); Mean Corpuscular HGB Conc 35 % (32-34); Mean Corpuscular Hemoglobin 35 pg (28-32); Mean Corpuscular Volume 99 fl (84-94); Platelet Count 356 K/mm3 (140-440); Red Blood Count 2.19 M/mm3 (3.65-5.03)
[2017-07-29 21:50] LABS: Bilirubin,Urine NEG (Negative); Blood,Urine MOD (Negative); Mucus,Urine 2+ /HPF
[2017-07-29 21:54] LABS: Red Cell Distribution Width 22.6 % (13.2-15.2)
[2017-07-29 21:54] LABS: Color,Urine Dark Yellow (Yellow)
[2017-07-29 22:33] LABS: Band Neutrophils # (Manual) 0.2 K/mm3; Basophils % (Manual) 0 % (0.0-1.8); Total Cells Counted 100
[2017-07-29 22:34] LABS: Sickle Cells 2+
[2017-07-29 22:35] LABS: Large Platelets 1+; Schistocytes Few; Target Cells Rare
[2017-07-29 22:36] LABS: Platelet Estimate Consistent w Auto
[2017-07-29 22:37] LABS: Anisocytosis 1+
[2017-07-30 03:49] VITALS: BP 156/86
[2017-07-30] MEDS ORDERED: MORPHINE IM ONE (04:30)
[2017-07-30] MEDS ORDERED: PHENERGAN PO ONE (04:30)
--- NOTE | 2017-07-30 04:34 | Emergency Department Report ---
ED General Adult HPI - General Chief complaint: Sickle Cell Crisis Stated complaint: SICKLE CELL CRISIS Time Seen by Provider: 07/30/17 04:21 Source: patient Mode of arrival: Ambulatory Limitations: No Limitations - History of Present Illness Initial comments: Patient says he is having lower back pain which usually will call when he has sickle cell crisis. Patient said he does not want x-ray done. -: Sudden, This afternoon Location: back Radiation: non-radiation Severity scale (0 -10): 9 Quality: sharp Consistency: constant Improves with: medication (Morphine) Worsens with: none Associated Symptoms: denies other symptoms Treatments Prior to Arrival: none - Related Data Previous Rx's Medication Instructions Recorded Last Taken Type Folic Acid [Folvite] 1 mg PO QDAY #30 tablet 05/28/14 05/01/15 Rx traMADol [Ultram 50 MG tab] 50 mg PO Q6HR PRN #20 tablet 11/02/16 Unknown Rx Oxycodone HCl/Acetaminophen 1 each PO Q6HR PRN #14 tablet 01/27/17 Unknown Rx [Percocet 10/325 mg] traMADol [Ultram 50 MG tab] 50 mg PO Q6HR PRN #25 tablet 01/27/17 Unknown Rx traMADol [Ultram] 50 mg PO Q6HR PRN #10 tablet 06/13/17 Unknown Rx traMADol [Ultram 50 MG tab] 50 mg PO BID PRN #12 tablet 07/30/17 Unknown Rx Allergies Allergy/AdvReac Type Severity Reaction Status Date / Time metoclopramide HCl Allergy Hives Verified 06/12/17 17:42 [From Reglan] nalbuphine HCl [From Nubain] Allergy Hives Verified 06/12/17 17:42 ketorolac tromethamine AdvReac Hives Verified 06/12/17 17:42 [From Toradol] ED Review of Systems ROS: Stated complaint: SICKLE CELL CRISIS Other details as noted in HPI Comment: All other systems reviewed and negative Constitutional: denies: chills, fever Eyes: denies: eye pain ENT: denies: ear pain Respiratory: denies: cough, shortness of breath Cardiovascular: denies: chest pain, palpitations Endocrine: no symptoms reported Gastrointestinal: denies: abdominal pain, nausea, vomiting, diarrhea Genitourinary: denies: urgency, dysuria, frequency Musculoskeletal: back pain. 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, Right hip AVN - Surgical History Past Surgical History?: No - Social History Smoking Status: Never Smoker Substance Use Type: None - Medications Home Medications: Home Medications Medication Instructions Recorded Confirmed Last Taken Type Folic Acid [Folvite] 1 mg PO QDAY #30 tablet 05/28/14 05/01/15 05/01/15 Rx traMADol [Ultram 50 MG tab] 50 mg PO Q6HR PRN #20 tablet 11/02/16 Unknown Rx Oxycodone HCl/Acetaminophen 1 each PO Q6HR PRN #14 tablet 01/27/17 Unknown Rx [Percocet 10/325 mg] traMADol [Ultram 50 MG tab] 50 mg PO Q6HR PRN #25 tablet 01/27/17 Unknown Rx traMADol [Ultram] 50 mg PO Q6HR PRN #10 tablet 06/13/17 Unknown Rx traMADol [Ultram 50 MG tab] 50 mg PO BID PRN #12 tablet 07/30/17 Unknown Rx ED Physical Exam - General Limitations: No Limitations General appearance: alert, in no apparent distress - Head Head exam: Present: atraumatic, normocephalic, normal inspection - Eye Eye exam: Present: PERRL, EOMI, scleral icterus Pupils: Present: normal accommodation - ENT ENT exam: Present: normal exam, normal orophraynx, mucous membranes moist - Neck Neck exam: Present: normal inspection, full ROM. Absent: tenderness - Respiratory Respiratory exam: Present: normal lung sounds bilaterally - Cardiovascular Cardiovascular Exam: Present: regular rate, normal rhythm, normal heart sounds - GI/Abdominal GI/Abdominal exam: Present: soft. Absent: tenderness, guarding, rebound, normal bowel sounds - Extremities Exam Extremities exam: Present: normal inspection, full ROM, normal capillary refill - Back Exam Back exam: Present: normal inspection, full ROM. Absent: tenderness, CVA tenderness (R), CVA tenderness (L), paraspinal tenderness, vertebral tenderness - Neurological Exam Neurological exam: Present: alert, oriented X3, CN II-XII intact - Psychiatric Psychiatric exam: Present: normal affect, normal mood - Skin Skin exam: Present: warm, dry, intact, normal color. Absent: rash ED Course Vital Signs 07/29/17 07/30/17 20:49 03:48 Temperature 99.0 F 98.5 F Pulse Rate 99 H 89 Respiratory 17 18 Rate Blood Pressure 156/86 [Left] O2 Sat by Pulse 99 98 Oximetry ED Medical Decision Making - Lab Data Result diagrams: 07/29/17 21:23 - Medical Decision Making Sickle Cell Pain Crisis. Critical care attestation.: If time is entered above; I have spent that time in minutes in the direct care of this critically ill patient, excluding procedure time. ED Disposition Clinical Impression: Sickle cell pain crisis Disposition: DC-01 TO HOME OR SELFCARE Is pt being admited?: No Does the pt Need Aspirin: No Condition: Stable Instructions: Sickle Cell Crisis (ED) Additional Instructions: Follow-up with her primary doctorry doctor within the next 24 hours. Return to the ED if your condition worsens. Prescriptions: traMADol [Ultram 50 MG tab] 50 mg PO BID PRN #12 tablet PRN Reason: Pain Referrals: VAUGHN HOWARD JR, MD [Primary Care Provider] - 3-5 Days Time of Disposition: 05:34
[2017-07-30] MEDS ORDERED: MORPHINE ONE (04:42)
[2017-07-30] MEDS ORDERED: PHENERGAN ONE (04:43)
== END 2017-07-30 05:39 | disposition home or self-care (01) ==
LOC: ED 20:17
DX: D57.00 Hb-SS disease with crisis, unspecified (principal); Z88.8 Allergy status to other drugs, medicaments and biological substances; Z88.6 Allergy status to analgesic agent
CPT/HCPCS: 36415; 81001; 85007; 85025; 85045; 99283; J2270; Q0169

== ENCOUNTER 2017-08-31 19:49 | Emergency (ER) | payer MEDICARE ==
[2017-08-31 20:54] LABS: Hematocrit 20.4 % (35.5-45.6); Hemoglobin 7.4 gm/dl (11.8-15.2); Mean Corpuscular HGB Conc 36 % (32-34); Mean Corpuscular Hemoglobin 36 pg (28-32); Mean Corpuscular Volume 98 fl (84-94); Platelet Count 356 K/mm3 (140-440); Red Blood Count 2.08 M/mm3 (3.65-5.03); Red Cell Distribution Width 23.9 % (13.2-15.2)
[2017-08-31 21:16] LABS: BUN/Creatinine Ratio 14; Blood Urea Nitrogen 13 mg/dL (9-20); Calcium 8.7 mg/dL (8.4-10.2); Hemolysis Index 23
[2017-08-31] MEDS ORDERED: MORPHINE IM ONE ×2 (23:00→23:34)
[2017-08-31] MEDS ORDERED: PHENERGAN PO ONE (23:35)
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
[2017-09-01 00:53] VITALS: BP 132/93
== END 2017-09-01 00:54 | disposition home or self-care (01) ==
LOC: ED 19:49
DX: D57.00 Hb-SS disease with crisis, unspecified (principal); M54.5 Low back pain; M79.662 Pain in left lower leg; M79.661 Pain in right lower leg; Z88.8 Allergy status to other drugs, medicaments and biological substances; Z88.6 Allergy status to analgesic agent
CPT/HCPCS: 36415; 80048; 85027; 85045; 96372; 99283; J2270; Q0169

== ENCOUNTER 2017-09-06 17:04 | Emergency (ER) | payer MEDICARE ==
[2017-09-06 17:11] VITALS: BP 130/74
[2017-09-06 17:31] LABS: Hemoglobin 7.7 gm/dl (11.8-15.2); Mean Corpuscular Hemoglobin 37 pg (28-32); Mean Corpuscular Volume 98 fl (84-94); Platelet Count 400 K/mm3 (140-440); Red Blood Count 2.05 M/mm3 (3.65-5.03)
[2017-09-06] MEDS ORDERED: MORPHINE IV ONE (17:45)
[2017-09-06] MEDS ORDERED: PHENERGAN PO ONE (17:45)
--- NOTE | 2017-09-06 17:47 | Emergency Department Report ---
ED General Adult HPI - General Chief complaint: Sickle Cell Crisis Stated complaint: SICKLE CELL FLARE UP Time Seen by Provider: 09/06/17 17:24 Source: patient Mode of arrival: Ambulatory Limitations: No Limitations - History of Present Illness Initial comments: Typical pain crisis for patient complains of low back pain he is here stating he just needs a shot, he denies fever denies chest pain denies abdominal pain as a focal neural complaints denies nausea vomiting diarrhea -: Gradual, hour(s) Location: back Radiation: non-radiation Consistency: intermittent Associated Symptoms: denies other symptoms. denies: confusion, chest pain, cough, diaphoresis, fever/chills, headaches, loss of appetite, malaise, nausea/ vomiting, rash, seizure, shortness of breath, syncope, weakness - Related Data Previous Rx's Medication Instructions Recorded Last Taken Type Folic Acid [Folvite] 1 mg PO QDAY #30 tablet 05/28/14 05/01/15 Rx Oxycodone HCl/Acetaminophen 1 each PO Q6HR PRN #14 tablet 01/27/17 Unknown Rx [Percocet 10/325 mg] traMADol [Ultram 50 MG tab] 50 mg PO Q6HR PRN #25 tablet 01/27/17 Unknown Rx traMADol [Ultram] 50 mg PO Q6HR PRN #10 tablet 06/13/17 Unknown Rx traMADol [Ultram 50 MG tab] 50 mg PO BID PRN #12 tablet 07/30/17 Unknown Rx Promethazine [Phenergan TAB] 25 mg PO Q6HR PRN #20 tab 08/31/17 Unknown Rx traMADol [Ultram 50 MG tab] 50 mg PO Q6HR PRN #20 tablet 08/31/17 Unknown Rx Allergies Allergy/AdvReac Type Severity Reaction Status Date / Time metoclopramide HCl Allergy Hives Verified 06/12/17 17:42 [From Reglan] nalbuphine HCl [From Nubain] Allergy Hives Verified 06/12/17 17:42 ketorolac tromethamine AdvReac Hives Verified 06/12/17 17:42 [From Toradol] ED Review of Systems ROS: Stated complaint: SICKLE CELL FLARE UP Other details as noted in HPI Comment: All other systems reviewed and negative Constitutional: denies: diaphoresis, fever, malaise Eyes: denies: eye discharge, vision change ENT: denies: dental pain, hearing loss, epistaxis Respiratory: denies: shortness of breath, SOB with exertion, SOB at rest, stridor Cardiovascular: denies: chest pain, palpitations, dyspnea on exertion, orthopnea , edema, syncope Gastrointestinal: denies: abdominal pain, nausea, vomiting, diarrhea, constipation, hematemesis, melena, hematochezia Skin: denies: rash, lesions Neurological: denies: numbness, paresthesias, confusion Psychiatric: denies: auditory hallucinations, homicidal thoughts Hematological/Lymphatic: denies: easy bruising 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, Right hip AVN - Surgical History Past Surgical History?: No - Social History Smoking Status: Never Smoker Substance Use Type: None - Medications Home Medications: Home Medications Medication Instructions Recorded Confirmed Last Taken Type Folic Acid [Folvite] 1 mg PO QDAY #30 tablet 05/28/14 05/01/15 05/01/15 Rx Oxycodone HCl/Acetaminophen 1 each PO Q6HR PRN #14 tablet 01/27/17 Unknown Rx [Percocet 10/325 mg] traMADol [Ultram 50 MG tab] 50 mg PO Q6HR PRN #25 tablet 01/27/17 Unknown Rx traMADol [Ultram] 50 mg PO Q6HR PRN #10 tablet 06/13/17 Unknown Rx traMADol [Ultram 50 MG tab] 50 mg PO BID PRN #12 tablet 07/30/17 Unknown Rx Promethazine [Phenergan TAB] 25 mg PO Q6HR PRN #20 tab 08/31/17 Unknown Rx traMADol [Ultram 50 MG tab] 50 mg PO Q6HR PRN #20 tablet 08/31/17 Unknown Rx ED Physical Exam - General Limitations: No Limitations General appearance: alert, in no apparent distress, anxious - Head Head exam: Present: atraumatic, normocephalic - Eye Eye exam: Present: normal appearance, PERRL, EOMI - ENT ENT exam: Present: normal exam, normal orophraynx - Neck Neck exam: Present: normal inspection. Absent: tenderness, meningismus - Respiratory Respiratory exam: Present: normal lung sounds bilaterally. Absent: respiratory distress, wheezes, rales, rhonchi, stridor, chest wall tenderness, accessory muscle use, decreased breath sounds - Cardiovascular Cardiovascular Exam: Present: regular rate, normal rhythm - GI/Abdominal GI/Abdominal exam: Present: soft. Absent: distended, tenderness, guarding, rebound, rigid, mass, pulsatile mass - Extremities Exam Extremities exam: Present: normal inspection, normal capillary refill. Absent: pedal edema, joint swelling, calf tenderness - Back Exam Back exam: Present: normal inspection. Absent: tenderness, CVA tenderness (R), CVA tenderness (L), muscle spasm, paraspinal tenderness, vertebral tenderness, rash noted - Neurological Exam Neurological exam: Present: alert, oriented X3, CN II-XII intact, reflexes normal. Absent: motor sensory deficit - Skin Skin exam: Present: warm. Absent: diaphoretic, erythema, urticaria, vesicles, petechiae, pallor, abrasion, ecchymosis ED Course Vital Signs 09/06/17 17:07 Temperature 99.4 F Pulse Rate 84 Respiratory 18 Rate Blood Pressure 130/74 O2 Sat by Pulse 93 Oximetry ED Medical Decision Making - Lab Data Result diagrams: 09/06/17 17:20 - Medical Decision Making Status appear to be typical pain crisis for patient pain control was vital signs were unremarkable with retic his baseline with baseline H&H mildly elevated WBC with this is consistent with pain crisis, there is no evidence of infection at this time he is afebrile and nontoxic, without any focus of infection no cough no headache no stiff neck no rash he is stable for outpatient follow-up Critical care attestation.: If time is entered above; I have spent that time in minutes in the direct care of this critically ill patient, excluding procedure time. ED Disposition Clinical Impression: Sickle cell pain crisis Disposition: DC-01 TO HOME OR SELFCARE Is pt being admited?: No Condition: Stable Instructions: Sickle Cell Crisis (ED) Additional Instructions: Continue your current medicine medicine, return if new or alarming symptoms such as worse pain chest pain fever or other problems or call 911 see the doctor listed or your regular doctor Referrals: ALE VILLEDA MD [Staff Physician] - 3-5 Days Time of Disposition: 19:04
[2017-09-06 19:06] LABS: Mean Corpuscular HGB Conc 38 % (32-34); Red Cell Distribution Width 23.2 % (13.2-15.2)
[2017-09-06 19:57] LABS: Total Cells Counted 100
[2017-09-06 19:58] LABS: Anisocytosis 2+; Sickle Cells 1+
[2017-09-06 19:59] LABS: Platelet Estimate Consistent w Auto; Target Cells 1+
== END 2017-09-06 19:15 | disposition home or self-care (01) ==
LOC: ED 17:04
DX: D57.00 Hb-SS disease with crisis, unspecified (principal); Z88.1 Allergy status to other antibiotic agents; Z88.6 Allergy status to analgesic agent; Z88.8 Allergy status to other drugs, medicaments and biological substances
CPT/HCPCS: 36415; 85007; 85025; 85045; 96374; 99283; J2270; Q0169

== ENCOUNTER 2017-09-19 00:44 | Emergency (ER) | payer MEDICARE ==
[2017-09-19 01:44] VITALS: BP 118/74
[2017-09-19 03:19] LABS: Hematocrit 20.9 % (35.5-45.6); Hemoglobin 7.5 gm/dl (11.8-15.2); Mean Corpuscular HGB Conc 36 % (32-34); Mean Corpuscular Hemoglobin 35 pg (28-32); Mean Corpuscular Volume 98 fl (84-94); Platelet Count 351 K/mm3 (140-440); Red Blood Count 2.13 M/mm3 (3.65-5.03)
[2017-09-19 03:26] LABS: Red Cell Distribution Width 23.7 % (13.2-15.2)
[2017-09-19 04:01] LABS: Total Cells Counted 100
[2017-09-19 04:02] LABS: Anisocytosis 2+; Ovalocytes 1+; Poikilocytosis 2+; Sickle Cells 2+; Stomatocytes 1+; Target Cells 1+
[2017-09-19] MEDS ORDERED: MORPHINE IM ONE (06:35)
[2017-09-19] MEDS ORDERED: PHENERGAN PO ONE (06:35)
--- NOTE | 2017-09-19 07:10 | Emergency Department Report ---
ED General Adult HPI - General Chief complaint: Sickle Cell Crisis Stated complaint: SICKLE PAIN Time Seen by Provider: 09/19/17 06:27 Source: patient Mode of arrival: Ambulatory Limitations: No Limitations - History of Present Illness Initial comments: 52-year-old male with a past medical history of sickle cell disease with frequent visits to the ER presents to the hospital complaints of sickle cell crisis 1 day. Patient is complaining of lower back pain and nausea. Pain is constant, worse with movement and palpation. Positive nausea. Denies fever, dysuria, vomiting, hematuria, leg weakness, numbness, or urinary incontinence. Patient states he is supposed to see his doctor today with appointment was rescheduled for next Friday. - Related Data Previous Rx's Medication Instructions Recorded Last Taken Type Folic Acid [Folvite] 1 mg PO QDAY #30 tablet 05/28/14 05/01/15 Rx traMADol [Ultram] 50 mg PO Q6HR PRN #10 tablet 06/13/17 Unknown Rx traMADol [Ultram 50 MG tab] 50 mg PO BID PRN #12 tablet 07/30/17 Unknown Rx traMADol [Ultram 50 MG tab] 50 mg PO Q6HR PRN #20 tablet 08/31/17 Unknown Rx Oxycodone HCl/Acetaminophen 1 each PO Q6HR PRN #12 tablet 09/19/17 Unknown Rx [Percocet 10/325 mg] Promethazine [Phenergan TAB] 25 mg PO Q6HR PRN #20 tab 09/19/17 Unknown Rx traMADol [Ultram 50 MG tab] 50 mg PO Q6HR PRN #25 tablet 09/19/17 Unknown Rx Allergies Allergy/AdvReac Type Severity Reaction Status Date / Time metoclopramide HCl Allergy Hives Verified 06/12/17 17:42 [From Reglan] nalbuphine HCl [From Nubain] Allergy Hives Verified 06/12/17 17:42 ketorolac tromethamine AdvReac Hives Verified 06/12/17 17:42 [From Toradol] ED Review of Systems ROS: Stated complaint: SICKLE PAIN Other details as noted in HPI Comment: All other systems reviewed and negative 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, Right hip AVN - Surgical History Past Surgical History?: No - Social History Smoking Status: Never Smoker Substance Use Type: None - Medications Home Medications: Home Medications Medication Instructions Recorded Confirmed Last Taken Type Folic Acid [Folvite] 1 mg PO QDAY #30 tablet 05/28/14 05/01/15 05/01/15 Rx traMADol [Ultram] 50 mg PO Q6HR PRN #10 tablet 06/13/17 Unknown Rx traMADol [Ultram 50 MG tab] 50 mg PO BID PRN #12 tablet 07/30/17 Unknown Rx traMADol [Ultram 50 MG tab] 50 mg PO Q6HR PRN #20 tablet 08/31/17 Unknown Rx Oxycodone HCl/Acetaminophen 1 each PO Q6HR PRN #12 tablet 09/19/17 Unknown Rx [Percocet 10/325 mg] Promethazine [Phenergan TAB] 25 mg PO Q6HR PRN #20 tab 09/19/17 Unknown Rx traMADol [Ultram 50 MG tab] 50 mg PO Q6HR PRN #25 tablet 09/19/17 Unknown Rx ED Physical Exam - General Limitations: No Limitations - Other Other exam information: General: No limitations, patient is alert in no acute distress Head exam: Atraumatic, normocephalic Eyes exam: Normal appearance, ENT: Moist mucous membrane, normal oropharynx Neck exam: Normal inspection, full range of motion, no meningismus nontender Respiratory exam: Clear to auscultation bilateral, no wheezes, rales, crackles Cardiovascular: Normal rate and rhythm, normal heart sounds Abdomen: Soft, nondistended, and nontender, with normal bowel sounds, no rebound, or guarding Extremity: Full range of motion normal inspection no deformity Back: Normal Inspection, full range of motion, no midline tenderness, bilateral paraspinal muscle tenderness. Neurologic: Alert, oriented x3, cranial nerves intact, no motor or sensory deficit Psychiatric: normal affect, normal mood Skin: Warm, dry, intact ED Course Vital Signs 09/19/17 09/19/17 01:36 05:00 Temperature 98.5 F Pulse Rate 84 Respiratory 18 18 Rate Blood Pressure 118/74 O2 Sat by Pulse 93 100 Oximetry ED Medical Decision Making - Lab Data Result diagrams: 09/19/17 02:36 Lab Results 09/19/17 Range/Units 02:36 WBC 16.5 H (4.5-11.0) K/mm3 RBC 2.13 L (3.65-5.03) M/mm3 Hgb 7.5 L (11.8-15.2) gm/dl Hct 20.9 L (35.5-45.6) % MCV 98 H (84-94) fl MCH 35 H (28-32) pg MCHC 36 H (32-34) % RDW 23.7 H (13.2-15.2) % Plt Count 351 (140-440) K/mm3 Lymph # Forest Ecologist Add Manual Diff Complete Total Counted 100 Seg Neuts % (Manual) 59.0 (40.0-70.0) % Band Neutrophils % 0 % Lymphocytes % (Manual) 25.0 (13.4-35.0) % Reactive Lymphs % (Man) 0 % Monocytes % (Manual) 8.0 H (0.0-7.3) % Eosinophils % (Manual) 5.0 H (0.0-4.3) % Basophils % (Manual) 3.0 H (0.0-1.8) % Metamyelocytes % 0 % Myelocytes % 0 % Promyelocytes % 0 % Blast Cells % 0 % Nucleated RBC % Not Reportable Seg Neutrophils # Man 9.7 H (1.8-7.7) K/mm3 Band Neutrophils # 0.0 K/mm3 Lymphocytes # (Manual) 4.1 (1.2-5.4) K/mm3 Abs React Lymphs (Man) 0.0 K/mm3 Monocytes # (Manual) 1.3 H (0.0-0.8) K/mm3 Eosinophils # (Manual) 0.8 H (0.0-0.4) K/mm3 Basophils # (Manual) 0.5 H (0.0-0.1) K/mm3 Metamyelocytes # 0.0 K/mm3 Myelocytes # 0.0 K/mm3 Promyelocytes # 0.0 K/mm3 Blast Cells # 0.0 K/mm3 WBC Morphology Not Reportable Hypersegmented Neuts Not Reportable Hyposegmented Neuts Not Reportable Hypogranular Neuts Not Reportable Smudge Cells Not Reportable Toxic Granulation Not Reportable Toxic Vacuolation Not Reportable Dohle Bodies Not Reportable Pelger-Huet Anomaly Not Reportable Zachary Rods Not Reportable Platelet Estimate Appears normal Clumped Platelets Not Reportable Plt Clumps, EDTA Not Reportable Large Platelets Not Reportable Giant Platelets Not Reportable Platelet Satelliting Not Reportable Plt Morphology Comment Not Reportable RBC Morphology Not Reportable Dimorphic RBCs Not Reportable Polychromasia 1+ Hypochromasia Not Reportable Poikilocytosis 2+ Anisocytosis 2+ Microcytosis 1+ Macrocytosis Not Reportable Spherocytes Not Reportable Pappenheimer Bodies Not Reportable Sickle Cells 2+ Target Cells 1+ Tear Drop Cells Not Reportable Ovalocytes 1+ Stomatocytes 1+ Helmet Cells Not Reportable [place] Bodies Not Reportable [place] Rings Not Reportable Hunter Cells Not Reportable Bite Cells Not Reportable Crenated Cell Not Reportable Elliptocytes 1+ Acanthocytes (Spur) Not Reportable Rouleaux Not Reportable Hemoglobin C Crystals Not Reportable Schistocytes Not Reportable Malaria parasites Not Reportable Percent Retic 7.49 H (0.78-2.58) % Gene Bodies Not Reportable Hem Pathologist Commnt No - Medical Decision Making Patient is seen at today's pain is similar to sickle cell crisis in the past and requested medication prescription to last him until his follow-up visit. H& H is stable compared to previous value. Leukocytosis and elevated reticulocyte noted a comparable to previous visits. He will be discharge after receiving IM medications in the ED - Differential Diagnosis drug-seeking, crisis, osteomyelitis, infection, UTI Critical Care Time: No Critical care attestation.: If time is entered above; I have spent that time in minutes in the direct care of this critically ill patient, excluding procedure time. ED Disposition Clinical Impression: Sickle cell pain crisis, Anemia Disposition: DC-01 TO HOME OR SELFCARE Is pt being admited?: No Does the pt Need Aspirin: No Condition: Stable Instructions: Sickle Cell Crisis (ED) Additional Instructions: Take the medication as prescribed. Return if symptoms worsen. Follow up with your tech intern as scheduled Prescriptions: Oxycodone HCl/Acetaminophen [Percocet 10/325 mg] 1 each PO Q6HR PRN #12 tablet PRN Reason: Pain Promethazine [Phenergan TAB] 25 mg PO Q6HR PRN #20 tab PRN Reason: Nausea traMADol [Ultram 50 MG tab] 50 mg PO Q6HR PRN #25 tablet PRN Reason: Pain Referrals: VAUGHN HOWARD JR, MD [Primary Care Provider] - 3-5 Days Time of Disposition: 07:10
== END 2017-09-19 07:24 | disposition home or self-care (01) ==
LOC: ED 00:44
DX: D57.00 Hb-SS disease with crisis, unspecified (principal); D64.9 Anemia, unspecified; Z88.8 Allergy status to other drugs, medicaments and biological substances
CPT/HCPCS: 36415; 85007; 85025; 85045; 96372; 99283; J2270; Q0169

== ENCOUNTER 2017-10-19 06:55 | Emergency (ER) | payer MEDICARE ==
[2017-10-19] MEDS ORDERED: D5NS 0.2% 1,000 ML IV SCH (08:00)
[2017-10-19 08:28] LABS: Hematocrit 20.6 % (35.5-45.6); Hemoglobin 7.7 gm/dl (11.8-15.2); Mean Corpuscular HGB Conc 37 % (32-34); Mean Corpuscular Hemoglobin 37 pg (28-32); Mean Corpuscular Volume 98 fl (84-94); Platelet Count 385 K/mm3 (140-440); Red Blood Count 2.09 M/mm3 (3.65-5.03)
[2017-10-19 08:30] VITALS: BP 131/66
[2017-10-19 08:40] LABS: Red Cell Distribution Width 22.8 % (13.2-15.2)
[2017-10-19] MEDS ORDERED: PHENERGAN PO ONE (09:15)
[2017-10-19] MEDS ORDERED: NORCO 5/325 PO ONE (09:16)
[2017-10-19 09:20] LABS: Basophils % (Manual) 0 % (0.0-1.8); Eosinophils % (Manual) 0 % (0.0-4.3); Total Cells Counted 100
--- NOTE | 2017-10-19 09:21 | Emergency Department Report ---
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 He has chronic pain. He has sickle SC disease I believe. He is a frequent visitor to the emergency department. He states he goes to his cloth seconds sorter regularly and has an appointment for the . At the time of my encounter, he states "I am ready to go home". He complains of nausea and diffuse pain. Has a history of AVM. He also complains of chronic back pain and hip pain. He is in no distress at this time. He is requesting outpatient prescription of tramadol. He does not go to chronic pain management to my knowledge. He is chronically anemic. -: Gradual, hour(s) Location: back, upper extremity, lower extremity Severity scale (0 -10): 8 Quality: aching Consistency: intermittent Improves with: none Worsens with: none Associated Symptoms: denies other symptoms - Related Data Previous Rx's Medication Instructions Recorded Last Taken Type Folic Acid [Folvite] 1 mg PO QDAY #30 tablet 05/28/14 05/01/15 Rx traMADol [Ultram] 50 mg PO Q6HR PRN #10 tablet 06/13/17 Unknown Rx traMADol [Ultram 50 MG tab] 50 mg PO BID PRN #12 tablet 07/30/17 Unknown Rx traMADol [Ultram 50 MG tab] 50 mg PO Q6HR PRN #20 tablet 08/31/17 Unknown Rx Oxycodone HCl/Acetaminophen 1 each PO Q6HR PRN #12 tablet 09/19/17 Unknown Rx [Percocet 10/325 mg] Promethazine [Phenergan TAB] 25 mg PO Q6HR PRN #20 tab 09/19/17 Unknown Rx traMADol [Ultram 50 MG tab] 50 mg PO Q6HR PRN #25 tablet 09/19/17 Unknown Rx Promethazine [Phenergan TAB] 25 mg PO Q8HR PRN #7 tab 10/19/17 Unknown Rx traMADol [Ultram 50 MG tab] 50 mg PO Q6HR PRN #14 tablet 10/19/17 Unknown Rx Allergies Allergy/AdvReac Type Severity Reaction Status Date / Time metoclopramide HCl Allergy Hives Verified 10/19/17 07:28 [From Reglan] nalbuphine HCl [From Nubain] Allergy Hives Verified 10/19/17 07:28 ketorolac tromethamine AdvReac Hives Verified 10/19/17 07:28 [From Toradol] ED Review of Systems ROS: Stated complaint: SICKLE CELL PAIN Other details as noted in HPI Constitutional: denies: chills, fever Eyes: denies: eye pain, eye discharge, vision change ENT: denies: ear pain, throat pain Respiratory: denies: cough, shortness of breath, SOB with exertion (denies this but states he doesn't exert himself a lot), wheezing Cardiovascular: denies: chest pain, palpitations Endocrine: no symptoms reported Gastrointestinal: denies: abdominal pain, nausea, diarrhea Genitourinary: denies: urgency, dysuria Musculoskeletal: as per HPI, back pain, arthralgia, other. denies: joint swelling Skin: denies: rash, lesions Neurological: denies: headache, weakness, paresthesias Psychiatric: denies: anxiety, depression Hematological/Lymphatic: denies: easy bleeding, easy bruising ED Past Medical Hx - Past Medical History Hx Sickle Cell Disease: Yes 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, Right hip AVN - Social History Smoking Status: Never Smoker Substance Use Type: None - Medications Home Medications: Home Medications Medication Instructions Recorded Confirmed Last Taken Type Folic Acid [Folvite] 1 mg PO QDAY #30 tablet 05/28/14 05/01/15 05/01/15 Rx traMADol [Ultram] 50 mg PO Q6HR PRN #10 tablet 06/13/17 Unknown Rx traMADol [Ultram 50 MG tab] 50 mg PO BID PRN #12 tablet 07/30/17 Unknown Rx traMADol [Ultram 50 MG tab] 50 mg PO Q6HR PRN #20 tablet 08/31/17 Unknown Rx Oxycodone HCl/Acetaminophen 1 each PO Q6HR PRN #12 tablet 09/19/17 Unknown Rx [Percocet 10/325 mg] Promethazine [Phenergan TAB] 25 mg PO Q6HR PRN #20 tab 09/19/17 Unknown Rx traMADol [Ultram 50 MG tab] 50 mg PO Q6HR PRN #25 tablet 09/19/17 Unknown Rx Promethazine [Phenergan TAB] 25 mg PO Q8HR PRN #7 tab 10/19/17 Unknown Rx traMADol [Ultram 50 MG tab] 50 mg PO Q6HR PRN #14 tablet 10/19/17 Unknown Rx ED Physical Exam - General Limitations: No Limitations General appearance: alert, in no apparent distress - Head Head exam: Present: atraumatic, normocephalic - Eye Eye exam: Present: normal appearance, other (conjunctiva and skin a bit pale). Absent: scleral icterus - ENT ENT exam: Present: mucous membranes moist - Neck Neck exam: Present: normal inspection. Absent: tenderness, meningismus - Respiratory Respiratory exam: Present: normal lung sounds bilaterally. Absent: respiratory distress - Cardiovascular Cardiovascular Exam: Present: regular rate, normal rhythm. Absent: systolic murmur, diastolic murmur, rubs, gallop - GI/Abdominal GI/Abdominal exam: Present: soft, normal bowel sounds. Absent: distended, tenderness, guarding, rebound, rigid - Rectal Rectal exam: Present: deferred - Extremities Exam Extremities exam: Present: normal inspection - Back Exam Back exam: Present: normal inspection - Neurological Exam Neurological exam: Present: alert, oriented X3, CN II-XII intact. Absent: motor sensory deficit - Psychiatric Psychiatric exam: Present: normal affect, normal mood - Skin Skin exam: Present: warm, dry, intact, normal color. Absent: rash ED Course Vital Signs 10/19/17 10/19/17 07:28 08:28 Temperature 98.5 F Pulse Rate 73 75 Respiratory 18 18 Rate Blood Pressure 120/74 Blood Pressure 131/66 [Left] O2 Sat by Pulse 95 98 Oximetry - Reevaluation(s) Reevaluation #1: Patient states he is fine with oral medicines. This will be given. He drank some juice and never required IV fluid. I have emphasized to him the importance of hematology follow-up for his chronic anemia. He states he will see his cloth seconds sorter this week. 10/19/17 09:19 ED Medical Decision Making - Lab Data Result diagrams: 10/19/17 08:10 Critical care attestation.: If time is entered above; I have spent that time in minutes in the direct care of this critically ill patient, excluding procedure time. ED Disposition Clinical Impression: Sickle cell anemia with pain, Chronic anemia Chronic pain Qualifiers: Chronic pain type: other chronic pain Qualified Code(s): G89.29 - Other chronic pain Disposition: TO HOME OR SELFCARE Is pt being admited?: No Does the pt Need Aspirin: No Condition: Stable Instructions: Sickle Cell Crisis (ED), Anemia (ED) Additional Instructions: Increase fluids. It is important that you see your cloth seconds sorter about your chronic anemia and for better pain management. Return as needed. Prescriptions: Promethazine [Phenergan TAB] 25 mg PO Q8HR PRN #7 tab PRN Reason: Nausea traMADol [Ultram 50 MG tab] 50 mg PO Q6HR PRN #14 tablet PRN Reason: Pain Referrals: PRIMARY CARE, [Primary Care Provider] - 3-5 Days Time of Disposition: 09:22
[2017-10-19 09:22] LABS: Platelet Estimate Consistent w Auto; Sickle Cells 2+; Target Cells 1+
== END 2017-10-19 10:00 | disposition home or self-care (01) ==
LOC: ED 06:55
DX: D57.219 Sickle-cell/Hb-C disease with crisis, unspecified (principal); G89.29 Other chronic pain; Z88.8 Allergy status to other drugs, medicaments and biological substances
CPT/HCPCS: 36415; 85007; 85025; 85045; 99283; Q0169

== ENCOUNTER 2018-08-01 20:36 | Emergency (ER) | payer MEDICARE ==
--- NOTE | 2018-08-01 21:01 | Emergency Department Report ---
Blank Doc - Documentation Documentation: 53 y o male with a hx of Sickle cell stating he feels like his sicke cell is ab out to flare up no acute pain at the moment Main side eval
[2018-08-01] MEDS ORDERED: ZOFRAN ODT PO ONE (21:52)
[2018-08-01] MEDS ORDERED: MORPHINE IM ONE (21:52)
--- NOTE | 2018-08-01 21:56 | Emergency Department Report ---
ED Back Pain/Injury HPI - General Chief Complaint: Sickle Cell Crisis Stated Complaint: SICKLE CELL FLARE UP Time Seen by Provider: 08/01/18 20:58 Source: patient, old records reviewed Limitations: No Limitations - History of Present Illness Initial Comments: 53-year-old male with a past medical history sickle cell SS, avascular necrosis of the right hip, and intermittent back pain presents having a sickle cell crisis. Patient complains of pain to his lower back. He states this is the only place that he hurts when he typically has crisis. His allergist/pediatric pulmonologist is planning to schedule MRI to rule out degenerative disc disease the patient seems to think that it is his sickle cell causing his back to hurt. Patient started having pain since this morning which is rated as 6/10 in intensity, and worse with movement. He denies focal weakness, numbness, fever, dysuria, hematuria, or urinary incontinence. When questioned what he is taking at home for pain he mentions he is taking tramadol and Percocet. As per Patricia prescription monitor website patient filled a 60 day supply of Percocet 10/325 and MS Contin ER 60 mg. Both of these were prescribed by allergist/pediatric pulmonologist Dr. Fede Thompson. Patient is requesting an IM shot for pain. - Related Data Previous Rx's Medication Instructions Recorded Last Taken Type Folic Acid [Folvite] 1 mg PO QDAY #30 tablet 05/28/14 05/01/15 Rx traMADol [Ultram] 50 mg PO Q6HR PRN #10 tablet 06/13/17 Unknown Rx traMADol [Ultram 50 MG tab] 50 mg PO BID PRN #12 tablet 07/30/17 Unknown Rx traMADol [Ultram 50 MG tab] 50 mg PO Q6HR PRN #20 tablet 08/31/17 Unknown Rx Promethazine [Phenergan] 25 mg PO Q6HR PRN #20 tab 09/19/17 Unknown Rx traMADol [Ultram 50 MG tab] 50 mg PO Q6HR PRN #25 tablet 09/19/17 Unknown Rx Promethazine [Phenergan TAB] 25 mg PO Q8HR PRN #7 tab 10/19/17 Unknown Rx traMADol [Ultram 50 MG tab] 50 mg PO Q6HR PRN #14 tablet 10/19/17 Unknown Rx Oxycodone HCl/Acetaminophen 1 each PO Q6HR PRN #9 tablet 12/16/17 Unknown Rx [Percocet 10/325 mg] Allergies Allergy/AdvReac Type Severity Reaction Status Date / Time metoclopramide HCl Allergy Hives Verified 10/19/17 07:28 [From Reglan] nalbuphine HCl [From Nubain] Allergy Hives Verified 10/19/17 07:28 ketorolac tromethamine AdvReac Hives Verified 10/19/17 07:28 [From Toradol] ED Review of Systems ROS: Stated complaint: SICKLE CELL FLARE UP Other details as noted in HPI Comment: All other systems reviewed and negative 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, Right hip AVN - Surgical History Past Surgical History?: Yes - Social History Smoking Status: Never Smoker Substance Use Type: None - Medications Home Medications: Home Medications Medication Instructions Recorded Confirmed Last Taken Type Folic Acid [Folvite] 1 mg PO QDAY #30 tablet 05/28/14 05/01/15 05/01/15 Rx traMADol [Ultram] 50 mg PO Q6HR PRN #10 tablet 06/13/17 Unknown Rx traMADol [Ultram 50 MG tab] 50 mg PO BID PRN #12 tablet 07/30/17 Unknown Rx traMADol [Ultram 50 MG tab] 50 mg PO Q6HR PRN #20 tablet 08/31/17 Unknown Rx Promethazine [Phenergan] 25 mg PO Q6HR PRN #20 tab 09/19/17 Unknown Rx traMADol [Ultram 50 MG tab] 50 mg PO Q6HR PRN #25 tablet 09/19/17 Unknown Rx Promethazine [Phenergan TAB] 25 mg PO Q8HR PRN #7 tab 10/19/17 Unknown Rx traMADol [Ultram 50 MG tab] 50 mg PO Q6HR PRN #14 tablet 10/19/17 Unknown Rx Oxycodone HCl/Acetaminophen 1 each PO Q6HR PRN #9 tablet 12/16/17 Unknown Rx [Percocet 10/325 mg] ED Physical Exam - General Limitations: No Limitations - Other Other exam information: General: No limitations, patient is alert in no acute distress Head exam: Atraumatic, normocephalic Eyes exam: Normal appearance ENT: Moist mucous membrane Neck exam: Normal inspection, full range of motion, no meningismus nontender Respiratory exam: Clear to auscultation bilateral, no wheezes, rales, crackles Cardiovascular: Normal rate and rhythm, normal heart sounds Abdomen: Soft, nondistended, and nontender, with normal bowel sounds, no rebound, or guarding Extremity: Full range of motion normal inspection no deformity Back: Normal Inspection, full range of motion, no tenderness Neurologic: Alert, oriented x3, cranial nerves intact, no motor or sensory deficit Psychiatric: normal affect, normal mood Skin: Warm, dry, intact ED Course Vital Signs 08/01/18 08/01/18 08/01/18 20:40 20:59 21:45 Temperature 98.5 F 98.5 F 98.7 F Pulse Rate 72 72 70 Respiratory 18 16 13 Rate Blood Pressure 126/47 126/47 Blood Pressure 132/44 [Left] O2 Sat by Pulse 94 94 97 Oximetry 08/01/18 08/01/18 08/01/18 22:00 22:04 22:15 Temperature Pulse Rate Respiratory 13 Rate Blood Pressure 132/44 132/100 Blood Pressure [Left] O2 Sat by Pulse 97 Oximetry 08/01/18 08/01/18 08/01/18 22:30 22:34 22:45 Temperature Pulse Rate Respiratory 18 Rate Blood Pressure 132/81 134/95 Blood Pressure [Left] O2 Sat by Pulse 98 71 L Oximetry 08/01/18 08/01/18 23:00 23:35 Temperature Pulse Rate Respiratory 18 Rate Blood Pressure 120/79 Blood Pressure [Left] O2 Sat by Pulse 97 Oximetry ED Medical Decision Making - Lab Data Result diagrams: 08/01/18 22:14 Lab Results 08/01/18 Range/Units 22:14 WBC 11.2 H (4.5-11.0) K/mm3 RBC 2.00 L (3.65-5.03) M/mm3 Hgb 7.2 L (11.8-15.2) gm/dl Hct 20.0 L (35.5-45.6) % MCV 100 H (84-94) fl MCH 36 H (28-32) pg MCHC 36 H (32-34) % RDW 23.8 H (13.2-15.2) % Plt Count 458 H (140-440) K/mm3 Percent Retic 7.53 H (0.78-2.58) % - Medical Decision Making Patient fell and better after ED treatment of IM medication. He declined IV and IV fluids. Informed hemoglobin of 7.2. He states his hemoglobin baseline is 8. Instructed to follow up with his allergist/pediatric pulmonologist as soon as possible. - Differential Diagnosis drug-seeking, lumbar spine arthritis, sickle cell crisis Critical Care Time: No Critical care attestation.: If time is entered above; I have spent that time in minutes in the direct care of this critically ill patient, excluding procedure time. ED Disposition Clinical Impression: Sickle cell pain crisis, Sickle cell anemia Disposition: DC- TO HOME OR SELFCARE Is pt being admited?: No Does the pt Need Aspirin: No Condition: Stable Instructions: Sickle Cell Crisis (ED) Additional Instructions: Continue your current pain medication as prescribed.. Follow up with your doctor or the clinic/doctor provided. Return if symptoms worsen as indicated by your discharge instructions. Your current hemoglobin today is 7.2. Follow very closely with your allergist/pediatric pulmonologist. If your blood count continues to drop then you will need a blood transfusion. Referrals: Fede Thompson [Other] - 2-3 Days (Vegetable Cutter) Time of Disposition: 00:33
[2018-08-01 22:46] LABS: Hemoglobin 7.2 gm/dl (11.8-15.2); Mean Corpuscular HGB Conc 36 % (32-34); Mean Corpuscular Volume 100 fl (84-94); Platelet Count 458 K/mm3 (140-440)
[2018-08-01 22:47] LABS: Red Cell Distribution Width 23.8 % (13.2-15.2)
[2018-08-01 23:05] VITALS: BP 120/79
[2018-08-01] MEDS ORDERED: DILAUDID IM ONE (23:28)
[2018-08-02 02:47] LABS: Basophils % (Manual) 0 % (0.0-1.8); Total Cells Counted 100
[2018-08-02 02:48] LABS: Anisocytosis 2+; Platelet Estimate Consistent w Auto; Sickle Cells 1+
== END 2018-08-02 00:35 | disposition home or self-care (01) ==
LOC: ED 20:36
DX: D57.00 Hb-SS disease with crisis, unspecified (principal); Z88.5 Allergy status to narcotic agent
CPT/HCPCS: 36415; 85007; 85025; 85045; 96372; 99283; J1170; J2270; Q0162

== ENCOUNTER 2018-11-09 01:06 | Emergency (ER) | payer MEDICARE | END 2018-11-09 01:10 | disposition left against medical advice (07) | LOC: ED 01:06 | DX: D57.1 Sickle-cell disease without crisis (principal); Z53.21 Procedure and treatment not carried out due to patient leaving prior to being seen by health care provider ==

== ENCOUNTER 2019-02-13 19:13 | Emergency (ER) | payer MEDICARE ==
--- NOTE | 2019-02-13 19:26 | Event Note ---
ED Screening Note Date of service: 02/13/19 Time: 19:24 ED Screening Note: This is a 53 y.o. M. that presents to the ER with back pain since 9 AM this morning from possible sickle cell crisis. This initial assessment/diagnostic orders/clinical plan/treatment(s) is/are subject to change based on patients health status, clinical progression and re- assessment by fellow clinical providers in the ED. Further treatment and workup at subsequent clinical providers discretion. Patient/guardian urged not to elope from the ED as their condition may be serious if not clinically assessed and managed. Initial orders include: Labs
[2019-02-13 20:53] VITALS: BP 133/43
[2019-02-13 21:12] LABS: Hemoglobin 6.8 gm/dl (11.8-15.2); Mean Corpuscular HGB Conc 36 % (32-34); Mean Corpuscular Volume 100 fl (84-94); Platelet Count 331 K/mm3 (140-440); Red Blood Count 1.92 M/mm3 (3.65-5.03)
[2019-02-13 21:15] LABS: Hematocrit 19.2 % (35.5-45.6); Red Cell Distribution Width 22.6 % (13.2-15.2)
[2019-02-13] MEDS ORDERED: HYDROmorphone 1 MG/1 ML INJ IM ONE (21:25)
--- NOTE | 2019-02-13 21:26 | Emergency Department Report ---
ED General Adult HPI - General Chief complaint: Sickle Cell Crisis Stated complaint: SICKLE CELL CRISIS Time Seen by Provider: 02/13/19 21:05 Source: patient Mode of arrival: Ambulatory Limitations: No Limitations - History of Present Illness Initial comments: Patient is a 53-year-old male up since emergency room with complaints of low back pain and sickle cell crisis. Patient states the pain started this morning. Patient states the pain is worsening. Patient states his back pain is a 10 out of 10 and nonradiating. Patient states it's worse with movement and better with rest. Patient states he took his last tramadol and oxycodone this morning. Patient states his primary care is Dr. Thompson. Patient states he is out of pain medications. Patient states he has arrest of his sickle cell medications. -: Sudden Location: back Radiation: non-radiation Severity scale (0 -10): 10 Quality: stabbing Consistency: constant Improves with: rest Worsens with: movement Associated Symptoms: denies other symptoms. denies: confusion, chest pain, cough, diaphoresis, fever/chills, headaches, loss of appetite, malaise, nausea/v omiting, rash, seizure, shortness of breath, syncope, weakness Treatments Prior to Arrival: NSAID, other - Related Data Previous Rx's Medication Instructions Recorded Last Taken Type Folic Acid [Folvite] 1 mg PO QDAY #30 tablet 05/28/14 05/01/15 Rx traMADoL [Ultram] 50 mg PO Q6HR PRN #10 tablet 06/13/17 Unknown Rx traMADoL [Ultram 50 MG tab] 50 mg PO BID PRN #12 tablet 07/30/17 Unknown Rx traMADoL [Ultram 50 MG tab] 50 mg PO Q6HR PRN #20 tablet 08/31/17 Unknown Rx Promethazine [Phenergan] 25 mg PO Q6HR PRN #20 tab 09/19/17 Unknown Rx traMADoL [Ultram 50 MG tab] 50 mg PO Q6HR PRN #25 tablet 09/19/17 Unknown Rx Promethazine [Phenergan TAB] 25 mg PO Q8HR PRN #7 tab 10/19/17 Unknown Rx traMADoL [Ultram 50 MG tab] 50 mg PO Q6HR PRN #14 tablet 10/19/17 Unknown Rx Oxycodone HCl/Acetaminophen 1 each PO Q6HR PRN #12 tablet 02/13/19 Unknown Rx [Percocet 10/325 mg] Allergies Allergy/AdvReac Type Severity Reaction Status Date / Time metoclopramide HCl Allergy Hives Verified 10/19/17 07:28 [From Reglan] nalbuphine HCl [From Nubain] Allergy Hives Verified 10/19/17 07:28 ketorolac tromethamine AdvReac Hives Verified 10/19/17 07:28 [From Toradol] ED Review of Systems ROS: Stated complaint: SICKLE CELL CRISIS Other details as noted in HPI Constitutional: denies: chills, fever Eyes: denies: eye pain, eye discharge, vision change ENT: denies: ear pain, throat pain Respiratory: denies: cough, shortness of breath, wheezing Cardiovascular: denies: chest pain, palpitations Endocrine: no symptoms reported Gastrointestinal: denies: abdominal pain, nausea, diarrhea Genitourinary: denies: urgency, dysuria Musculoskeletal: back pain. 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, Right hip AVN - Surgical History Past Surgical History?: No - Social History Smoking Status: Never Smoker Substance Use Type: None - Medications Home Medications: Home Medications Medication Instructions Recorded Confirmed Last Taken Type Folic Acid [Folvite] 1 mg PO QDAY #30 tablet 05/28/14 05/01/15 05/01/15 Rx traMADoL [Ultram] 50 mg PO Q6HR PRN #10 tablet 06/13/17 Unknown Rx traMADoL [Ultram 50 MG tab] 50 mg PO BID PRN #12 tablet 07/30/17 Unknown Rx traMADoL [Ultram 50 MG tab] 50 mg PO Q6HR PRN #20 tablet 08/31/17 Unknown Rx Promethazine [Phenergan] 25 mg PO Q6HR PRN #20 tab 09/19/17 Unknown Rx traMADoL [Ultram 50 MG tab] 50 mg PO Q6HR PRN #25 tablet 09/19/17 Unknown Rx Promethazine [Phenergan TAB] 25 mg PO Q8HR PRN #7 tab 10/19/17 Unknown Rx traMADoL [Ultram 50 MG tab] 50 mg PO Q6HR PRN #14 tablet 10/19/17 Unknown Rx Oxycodone HCl/Acetaminophen 1 each PO Q6HR PRN #12 tablet 02/13/19 Unknown Rx [Percocet 10/325 mg] ED Physical Exam - General Limitations: No Limitations General appearance: alert, in no apparent distress - Head Head exam: Present: atraumatic, normocephalic - Eye Eye exam: Present: normal appearance - ENT ENT exam: Present: mucous membranes moist - Neck Neck exam: Present: normal inspection - Respiratory Respiratory exam: Present: normal lung sounds bilaterally. Absent: respiratory distress - Cardiovascular Cardiovascular Exam: Present: regular rate, normal rhythm. Absent: systolic murmur, diastolic murmur, rubs, gallop - GI/Abdominal GI/Abdominal exam: Present: soft, normal bowel sounds - Rectal Rectal exam: Present: deferred - Extremities Exam Extremities exam: Present: normal inspection - Back Exam Back exam: Present: normal inspection - Neurological Exam Neurological exam: Present: alert, oriented X3 - Psychiatric Psychiatric exam: Present: normal affect, normal mood - Skin Skin exam: Present: warm, dry, intact, normal color. Absent: rash ED Course Vital Signs 02/13/19 02/13/19 19:18 20:51 Temperature 98.5 F Pulse Rate 82 Respiratory 18 18 Rate Blood Pressure 122/64 Blood Pressure 133/43 [Right] O2 Sat by Pulse 93 95 Oximetry - Reevaluation(s) Reevaluation #1: Patient states his pain is better. I discussed plan of care with patient. I discussed transfusion admission with patient and patient refused transfusion and admission. Patient states he wants to go home. Patient signed out AMA. Makayla ent signed AMA form. I discussed risks with patient and patient voiced understanding of rest. Patient was still given discharge instructions. Patient voiced understanding of discharge instructions. 02/13/19 23:12 ED Medical Decision Making - Lab Data Result diagrams: 02/13/19 20:44 - Medical Decision Making Patient is a 53-year-old male that presents to the emergency room with complaints of back pain and sickle cell crisis. Patient's labs are done and found to have an elevated reticulocyte count and anemia. I recommended admission and possible transfusion and patient refused and signed out AMA. I discussed all results with patient. Patient voiced understanding of risks of leaving hospital AGAINST MEDICAL ADVICE. - Differential Diagnosis ss crisis, back pain. Critical care attestation.: If time is entered above; I have spent that time in minutes in the direct care of this critically ill patient, excluding procedure time. ED Disposition Clinical Impression: Sickle cell pain crisis Anemia Qualifiers: Anemia type: unspecified type Qualified Code(s): D64.9 - Anemia, unspecified Disposition: LEFT AGAINST MED ADVICE Is pt being admited?: No Does the pt Need Aspirin: No Condition: Stable Instructions: Sickle Cell Crisis (ED) Additional Instructions: Patient to return to ER if condition worsens. Patient to rest. Patient increase water. Patient start a multivitamin. Patient to take meds as directed. Patient to follow up with primary care in 2-3 days. Patient to follow-up with keller machine operator in 2-3 days. Prescriptions: Oxycodone HCl/Acetaminophen [Percocet 10/325 mg] 1 each PO Q6HR PRN #12 tablet PRN Reason: Pain Referrals: PRIMARY CARE, [Primary Care Provider] - 2-3 Days Time of Disposition: 23:15
[2019-02-14 00:13] LABS: Basophils % (Manual) 0 % (0.0-1.8); Total Cells Counted 100
[2019-02-14 00:14] LABS: Sickle Cells 1+
[2019-02-14 00:17] LABS: Large Platelets Few; Platelet Estimate Cons; Poikilocytosis 1+
== END 2019-02-13 23:51 | disposition left against medical advice (07) ==
LOC: ED 19:13
DX: D57.00 Hb-SS disease with crisis, unspecified (principal); D64.9 Anemia, unspecified; Z79.899 Other long term (current) drug therapy; Z88.8 Allergy status to other drugs, medicaments and biological substances
CPT/HCPCS: 36415; 85007; 85025; 85045; 96372; 99283; J1170

== ENCOUNTER 2019-03-20 10:59 | Emergency (ER) | payer MEDICARE ==
[2019-03-20 11:21] VITALS: BP 138/69
[2019-03-20] MEDS ORDERED: PROMETHAZINE 25 MG TAB PO ONE (11:41)
[2019-03-20] MEDS ORDERED: MORPHINE 4 MG/1 ML INJ IM ONE (11:41)
--- NOTE | 2019-03-20 11:50 | Emergency Department Report ---
ED General Adult HPI - General Chief complaint: Sickle Cell Crisis Stated complaint: SICKLE CELL CRISIS Time Seen by Provider: 03/20/19 11:20 Source: patient Mode of arrival: Ambulatory Limitations: No Limitations - History of Present Illness Initial comments: Mr. Root is a 54-year-old male with history of hemoglobin SS disease and avascular necrosis of the right hip presents with a "little back pain" and withdrawal from opioids. Mr. Root requires Percocet and MS Contin as needed. 2 weeks ago he had a bad pain crisis. Consequently he has run out of his medication. He was out of town without opioid medication. Consequently he now has mild withdrawal symptoms such as stomach upset and diarrhea. He has recurrent back pain which is not new for him. Otherwise he is in his normal state of health. Mr. Root explained that His aircraft time clerk recommended that he comes to the emergency department for methadone prescription which will last him until his appointment on Friday. He requests IM shot of morphine and oral Phenergan. Home regimen includes Percocet and MS Contin. Patient's aircraft time clerk is Dr. Fede Thompson -: Gradual, days(s) (3) Location: back Severity scale (0 -10): 8 Quality: aching Consistency: constant Improves with: none Worsens with: none Associated Symptoms: other (diarrhea) Treatments Prior to Arrival: none - Related Data Previous Rx's Medication Instructions Recorded Last Taken Type Folic Acid [Folvite] 1 mg PO QDAY #30 tablet 05/28/14 05/01/15 Rx traMADoL [Ultram] 50 mg PO Q6HR PRN #10 tablet 06/13/17 Unknown Rx traMADoL [Ultram 50 MG tab] 50 mg PO BID PRN #12 tablet 07/30/17 Unknown Rx traMADoL [Ultram 50 MG tab] 50 mg PO Q6HR PRN #20 tablet 08/31/17 Unknown Rx Promethazine [Phenergan] 25 mg PO Q6HR PRN #20 tab 09/19/17 Unknown Rx traMADoL [Ultram 50 MG tab] 50 mg PO Q6HR PRN #25 tablet 09/19/17 Unknown Rx Promethazine [Phenergan TAB] 25 mg PO Q8HR PRN #7 tab 10/19/17 Unknown Rx traMADoL [Ultram 50 MG tab] 50 mg PO Q6HR PRN #14 tablet 10/19/17 Unknown Rx Oxycodone HCl/Acetaminophen 1 each PO Q6HR PRN #12 tablet 02/13/19 Unknown Rx [Percocet 10/325 mg] Methadone [Dolophine] 10 mg PO Q12H 5 Days #10 tab 03/20/19 Unknown Rx Allergies Allergy/AdvReac Type Severity Reaction Status Date / Time metoclopramide HCl Allergy Hives Verified 10/19/17 07:28 [From Reglan] nalbuphine HCl [From Nubain] Allergy Hives Verified 10/19/17 07:28 ketorolac tromethamine AdvReac Hives Verified 10/19/17 07:28 [From Toradol] ED Review of Systems ROS: Stated complaint: SICKLE CELL CRISIS Other details as noted in HPI Comment: All other systems reviewed and negative Constitutional: denies: fever, malaise Respiratory: denies: cough Gastrointestinal: diarrhea. denies: abdominal pain, nausea, vomiting Musculoskeletal: back pain 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, Right hip AVN - Surgical History Past Surgical History?: No - Social History Smoking Status: Never Smoker Substance Use Type: Prescribed - Medications Home Medications: Home Medications Medication Instructions Recorded Confirmed Last Taken Type Folic Acid [Folvite] 1 mg PO QDAY #30 tablet 05/28/14 05/01/15 05/01/15 Rx traMADoL [Ultram] 50 mg PO Q6HR PRN #10 tablet 06/13/17 Unknown Rx traMADoL [Ultram 50 MG tab] 50 mg PO BID PRN #12 tablet 07/30/17 Unknown Rx traMADoL [Ultram 50 MG tab] 50 mg PO Q6HR PRN #20 tablet 08/31/17 Unknown Rx Promethazine [Phenergan] 25 mg PO Q6HR PRN #20 tab 09/19/17 Unknown Rx traMADoL [Ultram 50 MG tab] 50 mg PO Q6HR PRN #25 tablet 09/19/17 Unknown Rx Promethazine [Phenergan TAB] 25 mg PO Q8HR PRN #7 tab 10/19/17 Unknown Rx traMADoL [Ultram 50 MG tab] 50 mg PO Q6HR PRN #14 tablet 10/19/17 Unknown Rx Oxycodone HCl/Acetaminophen 1 each PO Q6HR PRN #12 tablet 02/13/19 Unknown Rx [Percocet 10/325 mg] Methadone [Dolophine] 10 mg PO Q12H 5 Days #10 tab 03/20/19 Unknown Rx ED Physical Exam - General Limitations: No Limitations General appearance: alert, in no apparent distress, other (well-appearing pleasant nontoxic) - Head Head exam: Present: atraumatic, normocephalic - Eye Eye exam: Present: normal appearance - ENT ENT exam: Present: mucous membranes moist - Neck Neck exam: Present: normal inspection, full ROM - Respiratory Respiratory exam: Present: normal lung sounds bilaterally. Absent: respiratory distress, wheezes, rales, rhonchi - Cardiovascular Cardiovascular Exam: Present: regular rate, normal rhythm, normal heart sounds. Absent: systolic murmur, diastolic murmur, rubs, gallop - GI/Abdominal GI/Abdominal exam: Present: soft, normal bowel sounds. Absent: distended, tende rness, guarding, rebound - Rectal Rectal exam: Present: deferred - Extremities Exam Extremities exam: Present: normal inspection - Neurological Exam Neurological exam: Present: alert, oriented X3, normal gait - Psychiatric Psychiatric exam: Present: normal affect, normal mood - Skin Skin exam: Present: warm, dry, intact, normal color. Absent: rash ED Course Vital Signs 03/20/19 11:01 Temperature 99.2 F Pulse Rate 83 Respiratory 16 Rate Blood Pressure 138/69 O2 Sat by Pulse 96 Oximetry ED Medical Decision Making - Lab Data Result diagrams: 03/20/19 11:17 03/20/19 11:17 Laboratory Results - last 24 hr 03/20/19 03/20/19 11:17 11:17 WBC 10.9 RBC 2.05 L Hgb 7.5 L Hct 20.7 L MCV 101 H MCH 37 H MCHC 37 H RDW 21.0 H Plt Count 349 Lymph % (Auto) 26.8 Jones % (Auto) 7.2 Eos % (Auto) 3.6 Baso % (Auto) 1.9 H Lymph # 2.9 Jones # 0.8 Eos # 0.4 Baso # 0.2 H Seg Neutrophils % 60.5 Seg Neutrophils # 6.6 Percent Retic 7.60 H Sodium 138 Potassium 4.5 Chloride 107.2 H Carbon Dioxide 20 L Anion Gap 15 BUN 7 L Creatinine 0.8 Estimated GFR > 60 BUN/Creatinine Ratio 9 Glucose 109 H Calcium 8.9 Total Bilirubin 2.30 H AST 80 H ALT 72 H Alkaline Phosphatase 88 Total Protein 8.2 Albumin 3.8 L Albumin/Globulin Ratio 0.9 - Medical Decision Making Sickle cell disease pain crisis: Per his request, Mr. Root received IM morphine and po promethazine. I have prescribed 10 tabs of methadone Discharged home. I reviewed lab work. Critical care attestation.: If time is entered above; I have spent that time in minutes in the direct care of this critically ill patient, excluding procedure time. ED Disposition Clinical Impression: Sickle cell pain crisis Disposition: DC-01 TO HOME OR SELFCARE Is pt being admited?: No Does the pt Need Aspirin: No Condition: Stable Additional Instructions: Please return to the ER if you have any concerns. Prescriptions: Methadone [Dolophine] 10 mg PO Q12H 5 Days #10 tab Referrals: PRIMARY CARE, [Referring] - 2-3 Days
[2019-03-20 12:35] LABS: Hemoglobin 7.5 gm/dl (11.8-15.2); Red Blood Count 2.05 M/mm3 (3.65-5.03)
[2019-03-20 12:36] LABS: Basophils # (Auto) 0.2 K/mm3 (0.0-0.1); Basophils % (Auto) 1.9 % (0.0-1.8); Eosinophils # (Auto) 0.4 K/mm3 (0.0-0.4); Eosinophils % (Auto) 3.6 % (0.0-4.3); Hematocrit 20.7 % (35.5-45.6); Lymphocytes # (Auto) 2.9 K/mm3 (1.2-5.4); Lymphocytes % (Auto) 26.8 % (13.4-35.0); Mean Corpuscular HGB Conc 37 % (32-34); Mean Corpuscular Volume 101 fl (84-94); Monocytes # (Auto) 0.8 K/mm3 (0.0-0.8); Monocytes % (Auto) 7.2 % (0.0-7.3); Platelet Count 349 K/mm3 (140-440)
[2019-03-20 12:39] LABS: Alanine Aminotransferase 72 units/L (7-56); Albumin 3.8 g/dL (3.9-5); BUN/Creatinine Ratio 9; Blood Urea Nitrogen 7 mg/dL (9-20); Calcium 8.9 mg/dL (8.4-10.2); Hemolysis Index 14
== END 2019-03-20 14:43 | disposition home or self-care (01) ==
LOC: ED 10:59
DX: D57.00 Hb-SS disease with crisis, unspecified (principal); Z79.899 Other long term (current) drug therapy; Z88.8 Allergy status to other drugs, medicaments and biological substances
CPT/HCPCS: 36415; 80053; 85025; 85045; 96372; 99283; J2270; Q0169

== ENCOUNTER 2019-04-09 20:47 | Emergency (ER) | payer MEDICARE ==
[2019-04-09 20:56] VITALS: BP 139/59
--- NOTE | 2019-04-09 21:13 | Event Note ---
ED Screening Note Date of service: 04/09/19 Time: 21:05 ED Screening Note: Patient is a 54 yo AA male with a h/o sickle cell anemia who presents to the ED with c/o acute exacerbation of his chronic low back pain with nausea and diarrhea after being without his Morphine and Percocet for 24 hours. Patient states that he has not been able to eat anything because of severe nausea and diarrhea. Patient states that his PCP is Dr. Thompson who advised him to come to the ED for treatment. Patient states that he forgot his narcotic pain medications in a van in [place] and won't be able to get them back until 5 days from now. In triage patient is alert and oriented x 3 and is in no distress, carrying out conversation normally and appears to know providers in this ED by name. This initial assessment/diagnostic orders/clinical plan/treatment(s) is/are subject to change based on patients health status, clinical progression and re- assessment by fellow clinical providers in the ED. Further treatment and workup at subsequent clinical providers discretion. Patient/guardian urged not to elope from the ED as their condition may be serious if not clinically assessed and managed. Initial orders include: cbc, cmp, reticulocyte,
[2019-04-09 23:08] LABS: Hematocrit 20.7 % (35.5-45.6); Hemoglobin 7.5 gm/dl (11.8-15.2); Mean Corpuscular HGB Conc 36 % (32-34); Mean Corpuscular Volume 100 fl (84-94); Platelet Count 400 K/mm3 (140-440); Red Blood Count 2.08 M/mm3 (3.65-5.03)
[2019-04-09 23:09] LABS: Red Cell Distribution Width 23.2 % (13.2-15.2)
[2019-04-09 23:13] LABS: Alanine Aminotransferase 41 units/L (7-56); Albumin 4.4 g/dL (3.9-5); BUN/Creatinine Ratio 14; Blood Urea Nitrogen 18 mg/dL (9-20); Hemolysis Index 25
[2019-04-10 01:54] LABS: Basophils % (Manual) 0 % (0.0-1.8); Total Cells Counted 100
[2019-04-10 02:01] LABS: Anisocytosis 2+; Sickle Cells 2+
[2019-04-10 02:03] LABS: Platelet Estimate Consistent w Auto
--- NOTE | 2019-04-10 02:39 | Emergency Department Report ---
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 Patient states he has run out of his medication. Consequently he now has mild withdrawal symptoms such as stomach upset. He has recurrent back pain which is not new for him. pt explained that His division order technician recommended that he comes to the emergency department for prescription which will last him until his appointment. He requests IM shot of morphine and oral Phenergan. He states his pain is 3 out of 10. Patient states his nausea is better with rest and worse with movement. -: Sudden Radiation: back Severity scale (0 -10): 3 Consistency: constant Improves with: rest Worsens with: movement Associated Symptoms: denies: confusion, chest pain, cough, diaphoresis, fever/chills, headaches, loss of appetite, malaise, rash, seizure, shortness of breath, syncope, weakness Treatments Prior to Arrival: NSAID - Related Data Previous Rx's Medication Instructions Recorded Last Taken Type Folic Acid [Folvite] 1 mg PO QDAY #30 tablet 05/28/14 05/01/15 Rx traMADoL [Ultram] 50 mg PO Q6HR PRN #10 tablet 06/13/17 Unknown Rx traMADoL [Ultram 50 MG tab] 50 mg PO BID PRN #12 tablet 07/30/17 Unknown Rx traMADoL [Ultram 50 MG tab] 50 mg PO Q6HR PRN #20 tablet 08/31/17 Unknown Rx Promethazine [Phenergan] 25 mg PO Q6HR PRN #20 tab 09/19/17 Unknown Rx traMADoL [Ultram 50 MG tab] 50 mg PO Q6HR PRN #25 tablet 09/19/17 Unknown Rx Promethazine [Phenergan TAB] 25 mg PO Q8HR PRN #7 tab 10/19/17 Unknown Rx traMADoL [Ultram 50 MG tab] 50 mg PO Q6HR PRN #14 tablet 10/19/17 Unknown Rx Methadone [Dolophine] 10 mg PO Q12H 5 Days #10 tab 03/20/19 Unknown Rx Oxycodone HCl/Acetaminophen 1 each PO Q6HR PRN #10 tablet 04/10/19 Unknown Rx [Percocet 10/325 mg] Allergies Allergy/AdvReac Type Severity Reaction Status Date / Time metoclopramide HCl Allergy Hives Verified 10/19/17 07:28 [From Reglan] nalbuphine HCl [From Nubain] Allergy Hives Verified 10/19/17 07:28 ketorolac tromethamine AdvReac Hives Verified 10/19/17 07:28 [From Toradol] ED Review of Systems ROS: Stated complaint: SICKLE CELL PAIN Other details as noted in HPI Constitutional: denies: chills, fever Eyes: denies: eye pain, eye discharge, vision change ENT: denies: ear pain, throat pain Respiratory: denies: cough, shortness of breath, wheezing Cardiovascular: denies: chest pain, palpitations Endocrine: no symptoms reported Gastrointestinal: denies: abdominal pain, nausea, diarrhea Genitourinary: denies: urgency, dysuria Musculoskeletal: back pain. 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, Right hip AVN - Surgical History Past Surgical History?: Yes - Family History Family history: no significant - Social History Smoking Status: Never Smoker Substance Use Type: None - Medications Home Medications: Home Medications Medication Instructions Recorded Confirmed Last Taken Type Folic Acid [Folvite] 1 mg PO QDAY #30 tablet 05/28/14 05/01/15 05/01/15 Rx traMADoL [Ultram] 50 mg PO Q6HR PRN #10 tablet 06/13/17 Unknown Rx traMADoL [Ultram 50 MG tab] 50 mg PO BID PRN #12 tablet 07/30/17 Unknown Rx traMADoL [Ultram 50 MG tab] 50 mg PO Q6HR PRN #20 tablet 08/31/17 Unknown Rx Promethazine [Phenergan] 25 mg PO Q6HR PRN #20 tab 09/19/17 Unknown Rx traMADoL [Ultram 50 MG tab] 50 mg PO Q6HR PRN #25 tablet 09/19/17 Unknown Rx Promethazine [Phenergan TAB] 25 mg PO Q8HR PRN #7 tab 10/19/17 Unknown Rx traMADoL [Ultram 50 MG tab] 50 mg PO Q6HR PRN #14 tablet 10/19/17 Unknown Rx Methadone [Dolophine] 10 mg PO Q12H 5 Days #10 tab 03/20/19 Unknown Rx Oxycodone HCl/Acetaminophen 1 each PO Q6HR PRN #10 tablet 04/10/19 Unknown Rx [Percocet 10/325 mg] ED Physical Exam - General Limitations: No Limitations General appearance: alert, in no apparent distress - Head Head exam: Present: atraumatic, normocephalic - Eye Eye exam: Present: normal appearance - ENT ENT exam: Present: mucous membranes moist - Neck Neck exam: Present: normal inspection - Respiratory Respiratory exam: Present: normal lung sounds bilaterally. Absent: respiratory distress - Cardiovascular Cardiovascular Exam: Present: regular rate, normal rhythm. Absent: systolic murmur, diastolic murmur, rubs, gallop - GI/Abdominal GI/Abdominal exam: Present: soft, normal bowel sounds - Rectal Rectal exam: Present: deferred - Extremities Exam Extremities exam: Present: normal inspection - Back Exam Back exam: Present: normal inspection - Neurological Exam Neurological exam: Present: alert, oriented X3 - Psychiatric Psychiatric exam: Present: normal affect, normal mood - Skin Skin exam: Present: warm, dry, intact, normal color. Absent: rash ED Course Vital Signs 04/09/19 20:53 Temperature 97.6 F Pulse Rate 86 Respiratory 14 Rate Blood Pressure 139/59 O2 Sat by Pulse 94 Oximetry - Reevaluation(s) Reevaluation #1: I discussed all results with patient. Discussed plan of care with patient. Patient agrees with plan of care. Patient states his pain is better. Patient states his nausea has resolved. Patient is stable for discharge. Patient discharged home. Patient given discharge instruction. Patient voiced understanding of discharge instructions. 04/10/19 03:15 ED Medical Decision Making - Lab Data Result diagrams: 04/09/19 22:25 04/09/19 22:25 - Medical Decision Making She is a 54-year-old male that presents emergent for refill of his medications for his sickle cell pain. Patient is complaining of sickle cell crisis and back pain. Patient given morphine and Phenergan in the ER and his symptoms improve. Patient states he ran out of his occasion because he lost his prescription. Patient was given a refill of oxycodone. Patient's last visit with sickle cell crisis and anemia. Patient responded well to treatment. Patient left the ER asymptomatic.. - Differential Diagnosis sickle cell pain, back pain, med refill. Nausea. Critical care attestation.: If time is entered above; I have spent that time in minutes in the direct care of this critically ill patient, excluding procedure time. ED Disposition Clinical Impression: Sickle cell pain crisis, Nausea, Hyperkalemia Back pain Qualifiers: Back pain location: low back pain Chronicity: acute Back pain laterality: midline Sciatica presence: without sciatica Qualified Code(s): M54.5 - Low back pain Anemia Qualifiers: Anemia type: unspecified type Qualified Code(s): D64.9 - Anemia, unspecified Disposition: - TO HOME OR SELFCARE Is pt being admited?: No Does the pt Need Aspirin: No Condition: Stable Instructions: Sickle Cell Crisis (ED), Hyperkalemia (ED) Additional Instructions: Patient to follow up with primary care in 2-3 days. Patient to follow up with division order technician in 2-3 days. Patient to return to ER if condition worsens, changes or new symptoms arise. Patient to take Tylenol or ibuprofen when necessary for pain. Patient take meds as directed. Patient to increase water. Patient to avoid potassium-containing foods. Patient to have his potassium rechecked in 2- 3 days with his primary care. Prescriptions: Oxycodone HCl/Acetaminophen [Percocet 10/325 mg] 1 each PO Q6HR PRN #10 tablet PRN Reason: Pain Referrals: PRIMARY CARE, [Primary Care Provider] - 3-5 Days Time of Disposition: 03:20
[2019-04-10] MEDS ORDERED: PROMETHAZINE 25 MG TAB PO ONE (02:48)
[2019-04-10] MEDS ORDERED: MORPHINE 4 MG/1 ML INJ IM ONE (02:48)
== END 2019-04-10 03:32 | disposition home or self-care (01) ==
LOC: ED 20:47
DX: R11.0 Nausea (principal); E87.5 Hyperkalemia; M54.9 Dorsalgia, unspecified; D64.9 Anemia, unspecified; Z79.899 Other long term (current) drug therapy; Z88.8 Allergy status to other drugs, medicaments and biological substances
CPT/HCPCS: 36415; 80053; 85007; 85025; 85045; 96372; 99283; J2270; Q0169

== ENCOUNTER 2019-09-05 05:35 | Emergency (ER) | payer MEDICARE ==
[2019-09-05 06:05] VITALS: BP 137/69
[2019-09-05] MEDS ORDERED: MORPHINE 4 MG/1 ML INJ IM ONE (06:38)
[2019-09-05] MEDS ORDERED: ONDANSETRON 4 MG ODT TAB PO ONE (06:38)
--- NOTE | 2019-09-05 06:52 | Emergency Department Report ---
HPI - General Chief Complaint: Sickle Cell Crisis Time Seen by Provider: 09/05/19 06:12 - HPI HPI: This is a 54-year-old male with a history of sickle cell disease who presents to the emergency department with the complaint of some chronic back pain related to his sickle cell, as well as "withdrawal." Patient is on methadone for pain control and says that his just recently traveled to [place] and took his medications. He has an appointment with his physician on Friday. Patient says that he has been having nausea, vomiting, diarrhea and increased body aches that he equates to withdrawal from his nap with methadone. He denies any fever, ches t pain, shortness of breath. He has not taken anything for symptoms prior to presentation. 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, Right hip AVN - Surgical History Past Surgical History?: No - Social History Smoking Status: Never Smoker Substance Use Type: None - Medications Home Medications: Home Medications Medication Instructions Recorded Confirmed Last Taken Type Folic Acid [Folvite] 1 mg PO QDAY #30 tablet 05/28/14 05/01/15 05/01/15 Rx traMADoL [Ultram] 50 mg PO Q6HR PRN #10 tablet 06/13/17 Unknown Rx traMADoL [Ultram 50 MG tab] 50 mg PO BID PRN #12 tablet 07/30/17 Unknown Rx traMADoL [Ultram 50 MG tab] 50 mg PO Q6HR PRN #20 tablet 08/31/17 Unknown Rx Promethazine [Phenergan] 25 mg PO Q6HR PRN #20 tab 09/19/17 Unknown Rx traMADoL [Ultram 50 MG tab] 50 mg PO Q6HR PRN #25 tablet 09/19/17 Unknown Rx Promethazine [Phenergan TAB] 25 mg PO Q8HR PRN #7 tab 10/19/17 Unknown Rx traMADoL [Ultram 50 MG tab] 50 mg PO Q6HR PRN #14 tablet 10/19/17 Unknown Rx Methadone [Dolophine] 10 mg PO Q12H 5 Days #10 tab 03/20/19 Unknown Rx Oxycodone HCl/Acetaminophen 1 each PO Q6HR PRN #10 tablet 04/10/19 Unknown Rx [Percocet 10/325 mg] Promethazine [Phenergan] 25 mg PO Q8HR PRN #21 tab 08/04/19 Unknown Rx traMADoL [Ultram 50 MG tab] 50 mg PO Q4HR PRN #14 tablet 08/04/19 Unknown Rx traMADoL [Ultram 50 MG tab] 50 mg PO Q8H PRN #6 tablet 09/05/19 Unknown Rx ED Review of Systems ROS: Stated complaint: SICKLE CELL CRISIS Other details as noted in HPI Comment: All other systems reviewed and negative Constitutional: denies: chills, fever Eyes: denies: eye pain, vision change ENT: denies: ear pain, throat pain Respiratory: denies: cough, shortness of breath Cardiovascular: denies: chest pain, palpitations Gastrointestinal: nausea, vomiting, diarrhea Genitourinary: denies: dysuria, discharge Musculoskeletal: back pain. denies: joint swelling Skin: denies: rash, lesions Neurological: denies: headache, weakness Physical Exam - Physical Exam Vital Signs: Vital Signs 09/05/19 05:40 Temperature 98.6 F Pulse Rate 85 Respiratory 16 Rate Blood Pressure 137/69 [Right] O2 Sat by Pulse 96 Oximetry Physical Exam: GENERAL: The patient is well-developed well-nourished. HENT: Normocephalic. Atraumatic. Patient has moist mucous membranes. EYES: Extraocular motions are intact. NECK: Supple. Trachea is midline. CHEST/LUNGS: Clear to auscultation. There is no respiratory distress noted. HEART/CARDIOVASCULAR: Regular. There is no tachycardia. ABDOMEN: Abdomen is soft, nontender. Patient has normal bowel sounds. SKIN: Skin is warm and dry. NEURO: The patient is awake, alert, and oriented. The patient is cooperative. Normal speech. MUSCULOSKELETAL: There is no tenderness or deformity. There is no limitation range of motion. BACK: There is no midline thoracic or lumbar tenderness to palpation, step-off or deformity. There is some reproducible lumbar paraspinal tenderness to palpation bilaterally. ED Course Vital Signs 09/05/19 05:40 Temperature 98.6 F Pulse Rate 85 Respiratory 16 Rate Blood Pressure 137/69 [Right] O2 Sat by Pulse 96 Oximetry ED Medical Decision Making - Lab Data Result diagrams: 09/05/19 06:55 09/05/19 06:55 - Medical Decision Making This patient presents to the emergency department with a complaint of some lower back pain, nausea and vomiting. The lower back pain is chronic for this patient and usually related to a sickle cell pain crisis. Patient believes that the nausea and vomiting is secondary to some withdrawal as he has been out of his methadone. Patient's labs are consistent with previous visits including his leukocytosis, anemia and elevated reticulocyte count. Vital signs stable throughout his ED course including being afebrile. There is no midline thoracic or lumbar tenderness to palpation, step-off or deformity. Patient is seen ambulatory around the emergency department and both appears and feels stable. He has appointment coming up with his primary care physician this coming Friday. He has been given 6 pills of tramadol to help with his pain control and avoid further withdrawal. He has been instructed to return to the emergency department with any worsening of his symptoms or any acute distress. Critical Care Time: No Critical care attestation.: If time is entered above; I have spent that time in minutes in the direct care of this critically ill patient, excluding procedure time. ED Disposition Clinical Impression: Sickle cell pain crisis Anemia Qualifiers: Anemia type: unspecified type Qualified Code(s): D64.9 - Anemia, unspecified Nausea & vomiting Qualifiers: Vomiting type: unspecified Vomiting Intractability: non-intractable Qualified Code(s): R11.2 - Nausea with vomiting, unspecified Disposition: - TO HOME OR SELFCARE Is pt being admited?: No Condition: Stable Instructions: Sickle Cell Crisis (ED), Acute Nausea and Vomiting (ED) Additional Instructions: Please increase your oral rehydration. Return to the emergency department with any worsening of your symptoms or any acute distress. Follow-up with your primary care physician on Friday as previously scheduled. You have been prescribed a medication that is sedating and therefore should not be taken prior to driving, working, and responsible for children and in no way should be mixed with alcohol of any quantity. Prescriptions: traMADoL [Ultram 50 MG tab] 50 mg PO Q8H PRN #6 tablet PRN Reason: Pain Referrals: PRIMARY CARE [Primary Care Provider] - 2-3 Days Time of Disposition: 07:52
[2019-09-05 07:29] LABS: BUN/Creatinine Ratio 15; Blood Urea Nitrogen 16 mg/dL (9-20); Calcium 8.3 mg/dL (8.4-10.2); Hemolysis Index 13
[2019-09-05 07:33] LABS: Albumin 4.2 g/dL (3.9-5); Bilirubin,Direct 0.5 mg/dL (0-0.2)
[2019-09-05 07:35] LABS: Hemoglobin 7.8 gm/dl (11.8-15.2); Mean Corpuscular HGB Conc 36 % (32-34); Mean Corpuscular Volume 99 fl (84-94); Platelet Count 400 K/mm3 (140-440); Red Blood Count 2.23 M/mm3 (3.65-5.03)
[2019-09-05 07:39] LABS: Red Cell Distribution Width 21.2 % (13.2-15.2)
[2019-09-05 12:03] LABS: Anisocytosis 1+; Band Neutrophils # (Manual) 0.2 K/mm3; Basophils % (Manual) 0 % (0.0-1.8); Sickle Cells 1+; Total Cells Counted 100
[2019-09-05 12:04] LABS: Platelet Estimate Consistent w Auto; Target Cells Few
== END 2019-09-05 08:00 | disposition home or self-care (01) ==
LOC: ED 05:35
DX: D57.00 Hb-SS disease with crisis, unspecified (principal); R11.2 Nausea with vomiting, unspecified; Z79.899 Other long term (current) drug therapy; Z88.8 Allergy status to other drugs, medicaments and biological substances
CPT/HCPCS: 36415; 80048; 80076; 85007; 85025; 85045; 96372; 99284; J2270; Q0162

== ENCOUNTER 2019-12-04 02:20 | Emergency (ER) | payer MEDICARE ==
[2019-12-04 03:28] VITALS: BP 140/52
[2019-12-04] MEDS ORDERED: MORPHINE 4 MG/1 ML INJ IM ONE (08:54)
[2019-12-04] MEDS ORDERED: PROMETHAZINE 25 MG TAB PO ONE (08:55)
--- NOTE | 2019-12-04 09:14 | Emergency Department Report ---
ED General Adult HPI - General Chief complaint: Sickle Cell Crisis Stated complaint: SICKLE CELL FLARE UP/BACK PAIN Time Seen by Provider: 12/04/19 08:47 Source: patient Mode of arrival: Ambulatory Limitations: No Limitations - History of Present Illness Initial comments: This is a 54-year-old male he presents to the emergency room with complaint of his usual chronic back pain related to his sickle cell. He states that he is out of his pain medication and has an appointment with Dr. Fede Thompson on Friday. 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 Patient denies chest pain shortness of breath fever chills nausea vomiting. He is requesting just a refill on pain medication until he is seen by his doctor on Friday. - Related Data Previous Rx's Medication Instructions Recorded Last Taken Type Folic Acid [Folvite] 1 mg PO QDAY #30 tablet 05/28/14 05/01/15 Rx traMADoL [Ultram] 50 mg PO Q6HR PRN #10 tablet 06/13/17 Unknown Rx traMADoL [Ultram 50 MG tab] 50 mg PO BID PRN #12 tablet 07/30/17 Unknown Rx traMADoL [Ultram 50 MG tab] 50 mg PO Q6HR PRN #20 tablet 08/31/17 Unknown Rx Promethazine [Phenergan] 25 mg PO Q6HR PRN #20 tab 09/19/17 Unknown Rx traMADoL [Ultram 50 MG tab] 50 mg PO Q6HR PRN #25 tablet 09/19/17 Unknown Rx Promethazine [Phenergan TAB] 25 mg PO Q8HR PRN #7 tab 10/19/17 Unknown Rx traMADoL [Ultram 50 MG tab] 50 mg PO Q6HR PRN #14 tablet 10/19/17 Unknown Rx Methadone [Dolophine] 10 mg PO Q12H 5 Days #10 tab 03/20/19 Unknown Rx Oxycodone HCl/Acetaminophen 1 each PO Q6HR PRN #10 tablet 04/10/19 Unknown Rx [Percocet 10/325 mg] Promethazine [Phenergan] 25 mg PO Q8HR PRN #21 tab 08/04/19 Unknown Rx traMADoL [Ultram 50 MG tab] 50 mg PO Q4HR PRN #14 tablet 08/04/19 Unknown Rx traMADoL [Ultram 50 MG tab] 50 mg PO Q8H PRN #6 tablet 09/05/19 Unknown Rx traMADoL [Ultram 50 MG tab] 50 mg PO Q6HR PRN #12 tablet 12/04/19 Unknown Rx Allergies Allergy/AdvReac Type Severity Reaction Status Date / Time metoclopramide HCl Allergy Hives Verified 10/19/17 07:28 [From Reglan] nalbuphine HCl [From Nubain] Allergy Hives Verified 10/19/17 07:28 ketorolac tromethamine AdvReac Hives Verified 10/19/17 07:28 [From Toradol] ED Review of Systems ROS: Stated complaint: SICKLE CELL FLARE UP/BACK PAIN Other details as noted in HPI 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, Right hip AVN - Surgical History Past Surgical History?: No - Social History Smoking Status: Never Smoker Substance Use Type: None - Medications Home Medications: Home Medications Medication Instructions Recorded Confirmed Last Taken Type Folic Acid [Folvite] 1 mg PO QDAY #30 tablet 05/28/14 05/01/15 05/01/15 Rx traMADoL [Ultram] 50 mg PO Q6HR PRN #10 tablet 06/13/17 Unknown Rx traMADoL [Ultram 50 MG tab] 50 mg PO BID PRN #12 tablet 07/30/17 Unknown Rx traMADoL [Ultram 50 MG tab] 50 mg PO Q6HR PRN #20 tablet 08/31/17 Unknown Rx Promethazine [Phenergan] 25 mg PO Q6HR PRN #20 tab 09/19/17 Unknown Rx traMADoL [Ultram 50 MG tab] 50 mg PO Q6HR PRN #25 tablet 09/19/17 Unknown Rx Promethazine [Phenergan TAB] 25 mg PO Q8HR PRN #7 tab 10/19/17 Unknown Rx traMADoL [Ultram 50 MG tab] 50 mg PO Q6HR PRN #14 tablet 10/19/17 Unknown Rx Methadone [Dolophine] 10 mg PO Q12H 5 Days #10 tab 03/20/19 Unknown Rx Oxycodone HCl/Acetaminophen 1 each PO Q6HR PRN #10 tablet 04/10/19 Unknown Rx [Percocet 10/325 mg] Promethazine [Phenergan] 25 mg PO Q8HR PRN #21 tab 08/04/19 Unknown Rx traMADoL [Ultram 50 MG tab] 50 mg PO Q4HR PRN #14 tablet 08/04/19 Unknown Rx traMADoL [Ultram 50 MG tab] 50 mg PO Q8H PRN #6 tablet 09/05/19 Unknown Rx traMADoL [Ultram 50 MG tab] 50 mg PO Q6HR PRN #12 tablet 12/04/19 Unknown Rx ED Physical Exam - General Limitations: No Limitations General appearance: alert, in no apparent distress - Head Head exam: Present: atraumatic - Eye Eye exam: Present: normal appearance - ENT ENT exam: Present: normal exam, mucous membranes moist - Neck Neck exam: Present: normal inspection - Respiratory Respiratory exam: Present: normal lung sounds bilaterally. Absent: respiratory distress, wheezes - Cardiovascular Cardiovascular Exam: Present: regular rate, normal rhythm, normal heart sounds - GI/Abdominal GI/Abdominal exam: Present: soft. Absent: distended, tenderness - Extremities Exam Extremities exam: Present: normal inspection, normal capillary refill - Back Exam Back exam: Present: normal inspection - Neurological Exam Neurological exam: Present: alert, oriented X3, normal gait - Skin Skin exam: Present: warm, dry, intact ED Course Vital Signs 12/04/19 12/04/19 03:23 09:01 Temperature 98.8 F Pulse Rate 82 Respiratory 18 18 Rate Blood Pressure 140/52 O2 Sat by Pulse 96 Oximetry - Reevaluation(s) Reevaluation #1: 12/04/19 09:14 Patient refused blood work states he just need rx ED Medical Decision Making - Medical Decision Making 54-year-old male with a history of chronic low back pain from sickle cell is currently out of his pain medication. Patient refused any blood work states he has a follow-up appointment with his PCP on Friday Critical Care Time: No Critical care attestation.: If time is entered above; I have spent that time in minutes in the direct care of this critically ill patient, excluding procedure time. ED Disposition Clinical Impression: Sickle cell anemia with pain Low back pain Qualifiers: Chronicity: chronic Back pain laterality: unspecified Sciatica presence: without sciatica Qualified Code(s): M54.5 - Low back pain Disposition: TO HOME OR SELFCARE Is pt being admited?: No Does the pt Need Aspirin: No Condition: Stable Instructions: Sickle Cell Crisis (ED) Additional Instructions: Follow-up with your doctor on Friday as scheduled. Return to the emergency room for any worsening pain. Chest pain or shortness of breath. Drink plenty fluids and rest Prescriptions: traMADoL [Ultram 50 MG tab] 50 mg PO Q6HR PRN #12 tablet PRN Reason: Pain Referrals: PRIMARY CARE, [Primary Care Provider] - 3-5 Days Time of Disposition: 09:17
== END 2019-12-04 09:39 | disposition home or self-care (01) ==
LOC: ED 02:20
DX: D57.1 Sickle-cell disease without crisis (principal); M54.5 Low back pain; Z79.899 Other long term (current) drug therapy; Z88.8 Allergy status to other drugs, medicaments and biological substances
CPT/HCPCS: 96372; 99282; J2270; Q0169

== ENCOUNTER 2020-03-29 20:36 | Emergency (ER) | payer MEDICARE ==
--- NOTE | 2020-03-29 21:09 | Emergency Department Report ---
[facility] - Documentation Documentation: 55-year-old male with past medical history of cystic sickle cell presents emerge department complaining of acute on chronic pain. He recently got back from [place] where he states the air plan losses medication and has been having pain flareups now is having pain flareup across his back. He is due to follow-up with his pain management provider on Friday but has been getting injections at the sickle cell clinic to avoid going into withdrawal. Presents emergency department today seeking to be evaluated and hopefully get a prescription for methadone This initial assessment/diagnostic orders/clinical plan/treatment(s) is/are subject to change based on patients health status, clinical progression and re- assessment by fellow clinical providers in the ED. Further treatment and workup at subsequent clinical providers discretion. Patient/guardian urged not to elope from the ED as their condition may be serious if not clinically assessed and managed. Initial orders include:
[2020-03-29 21:14] VITALS: BP 143/79
[2020-03-29 21:25] LABS: Hemoglobin 6.9 gm/dl (11.8-15.2); Mean Corpuscular HGB Conc 37 % (32-34); Mean Corpuscular Volume 100 fl (84-94); Platelet Count 402 K/mm3 (140-440); Red Blood Count 1.89 M/mm3 (3.65-5.03)
[2020-03-29] MEDS ORDERED: ONDANSETRON 4 MG/2 ML INJ IM ONE (21:31)
[2020-03-29] MEDS ORDERED: MORPHINE 4 MG/1 ML INJ IM ONE (21:31)
[2020-03-29 21:37] LABS: Red Cell Distribution Width 21.5 % (13.2-15.2)
[2020-03-29 21:39] LABS: Hematocrit 18.9 % (35.5-45.6)
--- NOTE | 2020-03-29 21:40 | Emergency Department Report ---
ED General Adult HPI - General Chief complaint: Back Pain/Injury Stated complaint: SICKLE CELL PAIN Time Seen by Provider: 03/29/20 21:26 Source: patient Mode of arrival: Ambulatory Limitations: No Limitations - History of Present Illness Initial comments: Patient is 55 years old male with history of sickle cell disease. Patient presented to the ER complaining of lower back pain for the last few days. Patient stated that he is taking methadone however he lost his medication and his cut file clerk advised him to come to the ER. Patient stated that he does not want any blood work he just want something to help with the pain and pain prescription to help him until he would get his medication filled in the morning. Patient denied any fever or chills. Patient denied any headache, chest pain, abdominal pain, nausea or vomiting. - Related Data Previous Rx's Medication Instructions Recorded Last Taken Type Folic Acid [Folvite] 1 mg PO QDAY #30 tablet 05/28/14 05/01/15 Rx traMADoL [Ultram] 50 mg PO Q6HR PRN #10 tablet 06/13/17 Unknown Rx traMADoL [Ultram 50 MG tab] 50 mg PO BID PRN #12 tablet 07/30/17 Unknown Rx traMADoL [Ultram 50 MG tab] 50 mg PO Q6HR PRN #20 tablet 08/31/17 Unknown Rx Promethazine [Phenergan] 25 mg PO Q6HR PRN #20 tab 09/19/17 Unknown Rx traMADoL [Ultram 50 MG tab] 50 mg PO Q6HR PRN #25 tablet 09/19/17 Unknown Rx Promethazine [Phenergan TAB] 25 mg PO Q8HR PRN #7 tab 10/19/17 Unknown Rx traMADoL [Ultram 50 MG tab] 50 mg PO Q6HR PRN #14 tablet 10/19/17 Unknown Rx Methadone [Dolophine] 10 mg PO Q12H 5 Days #10 tab 03/20/19 Unknown Rx Oxycodone HCl/Acetaminophen 1 each PO Q6HR PRN #10 tablet 04/10/19 Unknown Rx [Percocet 10/325 mg] Promethazine [Phenergan] 25 mg PO Q8HR PRN #21 tab 08/04/19 Unknown Rx traMADoL [Ultram 50 MG tab] 50 mg PO Q4HR PRN #14 tablet 08/04/19 Unknown Rx traMADoL [Ultram 50 MG tab] 50 mg PO Q8H PRN #6 tablet 09/05/19 Unknown Rx traMADoL [Ultram 50 MG tab] 50 mg PO Q6HR PRN #12 tablet 12/04/19 Unknown Rx Allergies Allergy/AdvReac Type Severity Reaction Status Date / Time metoclopramide HCl Allergy Hives Verified 10/19/17 07:28 [From Reglan] nalbuphine HCl [From Nubain] Allergy Hives Verified 10/19/17 07:28 ketorolac tromethamine AdvReac Hives Verified 10/19/17 07:28 [From Toradol] ED Review of Systems ROS: Stated complaint: SICKLE CELL PAIN Other details as noted in HPI Comment: All other systems reviewed and negative Constitutional: denies: chills, fever Respiratory: denies: cough, shortness of breath Cardiovascular: denies: chest pain, palpitations Gastrointestinal: denies: abdominal pain, nausea, vomiting Musculoskeletal: arthralgia, myalgia 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, Right hip AVN - Surgical History Past Surgical History?: No - Social History Smoking Status: Never Smoker Substance Use Type: None - Medications Home Medications: Home Medications Medication Instructions Recorded Confirmed Last Taken Type Folic Acid [Folvite] 1 mg PO QDAY #30 tablet 05/28/14 05/01/15 05/01/15 Rx traMADoL [Ultram] 50 mg PO Q6HR PRN #10 tablet 06/13/17 Unknown Rx traMADoL [Ultram 50 MG tab] 50 mg PO BID PRN #12 tablet 07/30/17 Unknown Rx traMADoL [Ultram 50 MG tab] 50 mg PO Q6HR PRN #20 tablet 08/31/17 Unknown Rx Promethazine [Phenergan] 25 mg PO Q6HR PRN #20 tab 09/19/17 Unknown Rx traMADoL [Ultram 50 MG tab] 50 mg PO Q6HR PRN #25 tablet 09/19/17 Unknown Rx Promethazine [Phenergan TAB] 25 mg PO Q8HR PRN #7 tab 10/19/17 Unknown Rx traMADoL [Ultram 50 MG tab] 50 mg PO Q6HR PRN #14 tablet 10/19/17 Unknown Rx Methadone [Dolophine] 10 mg PO Q12H 5 Days #10 tab 03/20/19 Unknown Rx Oxycodone HCl/Acetaminophen 1 each PO Q6HR PRN #10 tablet 04/10/19 Unknown Rx [Percocet 10/325 mg] Promethazine [Phenergan] 25 mg PO Q8HR PRN #21 tab 08/04/19 Unknown Rx traMADoL [Ultram 50 MG tab] 50 mg PO Q4HR PRN #14 tablet 08/04/19 Unknown Rx traMADoL [Ultram 50 MG tab] 50 mg PO Q8H PRN #6 tablet 09/05/19 Unknown Rx traMADoL [Ultram 50 MG tab] 50 mg PO Q6HR PRN #12 tablet 12/04/19 Unknown Rx ED Physical Exam - General Limitations: No Limitations General appearance: alert, in no apparent distress - Head Head exam: Present: atraumatic, normocephalic, normal inspection - Eye Eye exam: Present: normal appearance - ENT ENT exam: Present: normal exam, normal orophraynx, mucous membranes moist - Neck Neck exam: Present: normal inspection, full ROM. Absent: tenderness, meningis mus - Respiratory Respiratory exam: Present: normal lung sounds bilaterally - Cardiovascular Cardiovascular Exam: Present: regular rate, normal rhythm, normal heart sounds - GI/Abdominal GI/Abdominal exam: Present: soft, normal bowel sounds. Absent: distended, tenderness, guarding, rebound, rigid, organomegaly, mass, bruit, pulsatile mass, hernia - Extremities Exam Extremities exam: Present: normal inspection, full ROM, normal capillary refill. Absent: tenderness, pedal edema, joint swelling, calf tenderness - Back Exam Back exam: Present: normal inspection, full ROM. Absent: CVA tenderness (R), CVA tenderness (L) - Neurological Exam Neurological exam: Present: alert, oriented X3, CN II-XII intact, normal gait, reflexes normal - Psychiatric Psychiatric exam: Present: normal mood - Skin Skin exam: Present: warm, intact, normal color ED Course Vital Signs 03/29/20 03/29/20 20:53 21:35 Temperature 98.7 F Pulse Rate 98 H Respiratory 18 18 Rate Blood Pressure 143/79 O2 Sat by Pulse 96 Oximetry ED Medical Decision Making - Lab Data Result diagrams: 03/29/20 21:07 - Medical Decision Making Patient is 55 years old male with history of sickle cell disease. Patient presented to the ER complaining of lower back pain for the last few days. Patient stated that he is taking methadone however he lost his medication and his cut file clerk advised him to come to the ER. Patient stated that he does not want any blood work he just want something to help with the pain and pain prescription to help him until he would get his medication filled in the morning. Patient denied any fever or chills. Patient denied any headache, chest pain, abdominal pain, nausea or vomiting. Patient received morphine and Zofran and refused normal saline. Patient hemoglobin is 6.9. I reviewed patient medical record discussed with the patient his lab results. Patient stated that the last time he had blood transfusion was when he was 26 years old. Patient stated that his cut file clerk informed him that he will only need blood transfusion when his hemoglobin is 6.2 and less. Patient had baseline hemoglobin of 6.8-7.5. There is no need for blood transfusion at this moment however patient advised to follow-up with his h ematologist and advised to return to the ER if he develop any new symptoms. Critical care attestation.: If time is entered above; I have spent that time in minutes in the direct care of this critically ill patient, excluding procedure time. ED Disposition Clinical Impression: Sickle cell pain crisis, Anemia Disposition: DC-01 TO HOME OR SELFCARE Is pt being admited?: No Condition: Stable Instructions: Hemolytic Anemia Referrals: SHANNON GONZALEZ MD [Primary Care Provider] - 3-5 Days
[2020-03-29 22:38] LABS: Anisocytosis 1+; Hypochromasia Few; Schistocytes Few; Sickle Cells 1+; Target Cells Few; Total Cells Counted 100
== END 2020-03-29 21:55 | disposition home or self-care (01) ==
LOC: ED 20:36
DX: D57.00 Hb-SS disease with crisis, unspecified (principal); D64.9 Anemia, unspecified; Z79.899 Other long term (current) drug therapy; Z88.8 Allergy status to other drugs, medicaments and biological substances
CPT/HCPCS: 36415; 85007; 85025; 85045; 96372; 99283; J2270; J2405

== ENCOUNTER 2020-06-29 14:58 | Emergency (ER) | payer MEDICARE ==
[2020-06-29 15:10] VITALS: BP 128/84
--- NOTE | 2020-06-29 15:40 | Event Note ---
ED Screening Note Date of service: 06/29/20 Time: 15:38 ED Screening Note: 55-year-old male patient with history of sickle cell disease presents emergency department with complaints of low back pain starting this morning. Patient states his current symptoms are consistent with prior sickle cell crises. States he is scheduled to see his plain clothes police officer next week. No preceding fall, trauma, or injury. He does not currently have pain medication to take at home. States his pain typically resolves with Morphine 10 mg + Phenergan IM. Patient specifically denies chest pain, shortness of breath palpitations, cough, wheezing. No fever, no hypoxia, no respiratory distress. Low clinical suspi cion for acute chest syndrome. General: Awake, appropriately interactive, no acute distress. Neck: Supple. Full range of motion intact. Cardiovascular: Normal peripheral perfusion. Pulmonary: No respiratory distress. Patient is speaking normally without use of accessory muscles. Skin: No apparent rashes or lesions. Neurological: No facial asymmetry. Speech is clear. Follows commands. Patient is alert and oriented. Musculoskeletal: Moves all four extremities spontaneously with normal range of motion. Psych: Cooperative. Appropriate mood and affect. I have greeted and performed a focused rapid initial assessment of this patient. A comprehensive ED assessment and evaluation of the patient, analysis of all test results, and completion of the medical decision-making process will be con ducted by additional ED providers. This initial assessment/diagnostic orders/clinical plan/treatment(s) is/are subject to change based on patients health status, clinical progression and re-assessment. Further treatment and workup at subsequent clinical provider's discretion. Patient/guardian urged not to elope from the ED as their condition may be serious if not clinically assessed and managed.
[2020-06-29 16:27] LABS: Hematocrit 21.8 % (35.5-45.6); Hemoglobin 7.8 gm/dl (11.8-15.2); Mean Corpuscular HGB Conc 36 % (32-34); Mean Corpuscular Volume 103 fl (84-94); Platelet Count 424 K/mm3 (140-440); Red Blood Count 2.12 M/mm3 (3.65-5.03)
[2020-06-29 16:30] LABS: Red Cell Distribution Width 20.5 % (13.2-15.2)
[2020-06-29 16:34] LABS: INR 1.19 (0.87-1.13); Partial Thromboplastin Time 23.2 Sec. (24.2-36.6)
--- NOTE | 2020-06-29 17:40 | Emergency Department Report ---
ED General Adult HPI - General Chief complaint: Sickle Cell Crisis Stated complaint: SICKLE CELL FLARE UP/BACK PAIN Time Seen by Provider: 06/29/20 15:38 Source: patient Mode of arrival: Ambulatory Limitations: No Limitations - History of Present Illness Initial comments: 55-year-old male patient with history of sickle cell disease presents emergency department with complaints of low back pain starting this morning. Patient states his current symptoms are consistent with prior sickle cell crises. States he is scheduled to see his roster clerk next week. No preceding fall, trauma, or injury. He does not currently have pain medication to take at home. States his pain typically resolves with Morphine 10 mg + Phenergan IM. Patient specifically denies chest pain, shortness of breath palpitations, cough, wheezing. No fever, no hypoxia, no respiratory distress. Low clinical suspicion for acute chest syndrome. -: This morning Location: back Radiation: non-radiation Severity scale (0 -10): 7 Quality: aching, sharp Consistency: constant Improves with: none Worsens with: none Associated Symptoms: denies other symptoms, nausea/vomiting. denies: chest pain, cough, diaphoresis, fever/chills, malaise, shortness of breath, syncope, weakness Treatments Prior to Arrival: none - Related Data Previous Rx's Medication Instructions Recorded Last Taken Type Folic Acid [Folvite] 1 mg PO QDAY #30 tablet 05/28/14 05/01/15 Rx traMADoL [Ultram] 50 mg PO Q6HR PRN #10 tablet 06/13/17 Unknown Rx traMADoL [Ultram 50 MG tab] 50 mg PO BID PRN #12 tablet 07/30/17 Unknown Rx traMADoL [Ultram 50 MG tab] 50 mg PO Q6HR PRN #20 tablet 08/31/17 Unknown Rx Promethazine [Phenergan] 25 mg PO Q6HR PRN #20 tab 09/19/17 Unknown Rx traMADoL [Ultram 50 MG tab] 50 mg PO Q6HR PRN #25 tablet 09/19/17 Unknown Rx Promethazine [Phenergan TAB] 25 mg PO Q8HR PRN #7 tab 10/19/17 Unknown Rx traMADoL [Ultram 50 MG tab] 50 mg PO Q6HR PRN #14 tablet 10/19/17 Unknown Rx Methadone [Dolophine] 10 mg PO Q12H 5 Days #10 tab 03/20/19 Unknown Rx Oxycodone HCl/Acetaminophen 1 each PO Q6HR PRN #10 tablet 04/10/19 Unknown Rx [Percocet 10/325 mg] Promethazine [Phenergan] 25 mg PO Q8HR PRN #21 tab 08/04/19 Unknown Rx traMADoL [Ultram 50 MG tab] 50 mg PO Q4HR PRN #14 tablet 08/04/19 Unknown Rx traMADoL [Ultram 50 MG tab] 50 mg PO Q8H PRN #6 tablet 09/05/19 Unknown Rx traMADoL [Ultram 50 MG tab] 50 mg PO Q6HR PRN #12 tablet 12/04/19 Unknown Rx Ondansetron [Zofran Odt] 4 mg PO Q8HR PRN #14 tab.rapdis 03/29/20 Unknown Rx oxyCODONE /ACETAMINOPHEN [Percocet 1 tab PO Q6HR PRN #14 tablet 03/29/20 Unknown Rx 5/325] traMADoL [Ultram 50 MG tab] 50 mg PO Q6HR PRN #12 tablet 06/29/20 Unknown Rx Allergies Allergy/AdvReac Type Severity Reaction Status Date / Time metoclopramide HCl Allergy Hives Verified 10/19/17 07:28 [From Reglan] nalbuphine HCl [From Nubain] Allergy Hives Verified 10/19/17 07:28 ketorolac tromethamine AdvReac Hives Verified 10/19/17 07:28 [From Toradol] ED Review of Systems ROS: Stated complaint: SICKLE CELL FLARE UP/BACK PAIN Other details as noted in HPI Comment: All other systems reviewed and negative 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, Right hip AVN - Social History Smoking Status: Never Smoker Substance Use Type: None - Medications Home Medications: Home Medications Medication Instructions Recorded Confirmed Last Taken Type Folic Acid [Folvite] 1 mg PO QDAY #30 tablet 05/28/14 05/01/15 05/01/15 Rx traMADoL [Ultram] 50 mg PO Q6HR PRN #10 tablet 06/13/17 Unknown Rx traMADoL [Ultram 50 MG tab] 50 mg PO BID PRN #12 tablet 07/30/17 Unknown Rx traMADoL [Ultram 50 MG tab] 50 mg PO Q6HR PRN #20 tablet 08/31/17 Unknown Rx Promethazine [Phenergan] 25 mg PO Q6HR PRN #20 tab 09/19/17 Unknown Rx traMADoL [Ultram 50 MG tab] 50 mg PO Q6HR PRN #25 tablet 09/19/17 Unknown Rx Promethazine [Phenergan TAB] 25 mg PO Q8HR PRN #7 tab 10/19/17 Unknown Rx traMADoL [Ultram 50 MG tab] 50 mg PO Q6HR PRN #14 tablet 10/19/17 Unknown Rx Methadone [Dolophine] 10 mg PO Q12H 5 Days #10 tab 03/20/19 Unknown Rx Oxycodone HCl/Acetaminophen 1 each PO Q6HR PRN #10 tablet 04/10/19 Unknown Rx [Percocet 10/325 mg] Promethazine [Phenergan] 25 mg PO Q8HR PRN #21 tab 08/04/19 Unknown Rx traMADoL [Ultram 50 MG tab] 50 mg PO Q4HR PRN #14 tablet 08/04/19 Unknown Rx traMADoL [Ultram 50 MG tab] 50 mg PO Q8H PRN #6 tablet 09/05/19 Unknown Rx traMADoL [Ultram 50 MG tab] 50 mg PO Q6HR PRN #12 tablet 12/04/19 Unknown Rx Ondansetron [Zofran Odt] 4 mg PO Q8HR PRN #14 tab.rapdis 03/29/20 Unknown Rx oxyCODONE /ACETAMINOPHEN [Percocet 1 tab PO Q6HR PRN #14 tablet 03/29/20 Unknown Rx 5/325] traMADoL [Ultram 50 MG tab] 50 mg PO Q6HR PRN #12 tablet 06/29/20 Unknown Rx ED Physical Exam - General Limitations: No Limitations ED Course Vital Signs 06/29/20 15:07 Temperature 98.9 F Pulse Rate 89 Respiratory 16 Rate Blood Pressure 128/84 [Right] O2 Sat by Pulse 98 Oximetry - Reevaluation(s) Reevaluation #1: 06/29/20 18:35 Patient reports he feels much better now since having pain medication. Patient states he is ready to be discharged. ED Medical Decision Making - Lab Data Result diagrams: 06/29/20 15:49 - Medical Decision Making 55-year-old male patient with history of sickle cell disease presents emergency department with complaints of low back pain starting this morning. Patient states his current symptoms are consistent with prior sickle cell crises. States he is scheduled to see his roster clerk next week. No preceding fall, trauma, or injury. He does not currently have pain medication to take at home. States his pain typically resolves with Morphine 10 mg + Phenergan IM. Patient specifically denies chest pain, shortness of breath palpitations, cough, wheezing. No fever, no hypoxia, no respiratory distress. Low clinical suspicion for acute chest syndrome. Discussed case with Dr. George. He states is okay to give patient morphine 10 mg IM and Phenergan 25 mg p.o. Critical care attestation.: If time is entered above; I have spent that time in minutes in the direct care of this critically ill patient, excluding procedure time. ED Disposition Clinical Impression: Sickle cell pain crisis Disposition: DC-01 TO HOME OR SELFCARE Is pt being admited?: No Does the pt Need Aspirin: No Condition: Stable Instructions: Hemolytic Anemia Additional Instructions: Please increase your fluid intake. Take pain medication only as needed. Follow-up with your roster clerk. Prescriptions: traMADoL [Ultram 50 MG tab] 50 mg PO Q6HR PRN #12 tablet PRN Reason: Pain Referrals: VAUGHN HOWARD JR, MD [Primary Care Provider] - 3-5 Days
[2020-06-29 17:42] LABS: Total Cells Counted 100
[2020-06-29] MEDS ORDERED: ONDANSETRON 4 MG/2 ML INJ IM ONE (17:42)
[2020-06-29] MEDS ORDERED: MORPHINE 4 MG/1 ML INJ IM ONE (17:42)
[2020-06-29 17:43] LABS: Anisocytosis 1+; Hypochromasia Few; Schistocytes Few; Sickle Cells 1+; Target Cells Few
[2020-06-29] MEDS ORDERED: PROMETHAZINE 25 MG TAB PO ONE (17:46)
== END 2020-06-29 19:02 | disposition home or self-care (01) ==
LOC: ED 14:58
DX: D57.00 Hb-SS disease with crisis, unspecified (principal); Z79.899 Other long term (current) drug therapy; Z88.8 Allergy status to other drugs, medicaments and biological substances
CPT/HCPCS: 36415; 85007; 85025; 85045; 85610; 85730; 96372; 99283; J2270; Q0169

== ENCOUNTER 2020-07-27 20:30 | Emergency (ER) | payer MEDICARE ==
[2020-07-27 21:09] LABS: Hemoglobin 7.5 gm/dl (11.8-15.2); Mean Corpuscular Volume 100 fl (84-94); Platelet Count 402 K/mm3 (140-440); Red Blood Count 2.01 M/mm3 (3.65-5.03)
[2020-07-27 21:18] LABS: Red Cell Distribution Width 21.9 % (13.2-15.2)
[2020-07-27 21:20] LABS: Mean Corpuscular HGB Conc 38 % (32-34)
[2020-07-27 21:31] LABS: Alanine Aminotransferase 29 units/L (7-56); BUN/Creatinine Ratio 12; Blood Urea Nitrogen 14 mg/dL (9-20); Calcium 8.7 mg/dL (8.4-10.2); Hemolysis Index 33
[2020-07-27 22:10] LABS: Total Cells Counted 100
[2020-07-27 22:11] LABS: Anisocytosis 1+; Hypochromasia Few; Schistocytes Few; Sickle Cells 1+; Target Cells Few
--- NOTE | 2020-07-27 22:58 | Emergency Department Report ---
ED General Adult HPI - General Chief complaint: Sickle Cell Crisis Stated complaint: SICKLE CELL PAIN/WITHDRAWALS PUI?: No Time Seen by Provider: 07/27/20 22:46 Source: patient Mode of arrival: Ambulatory Limitations: No Limitations - History of Present Illness Initial comments: Patient is a 55-year-old male who presents emergency room with complaints of back pain and opiate withdrawal. Patient states that he has sickle cell and he has been having a sickle cell flare pain management with his morphine at home. Patient states that he is out of his morphine and he ran out 2 days ago. Patient states that he feels like he is withdrawing. Patient complaining of diaphoresis and nausea and vomiting. Patient states that his symptoms are better with rest and worse with movement. Patient states his morphine also helps his back pain. Patient states his back pain is a 6 out of 10. Patient states his back pain is better with rest and worse with movement. Patient denies fever and chills. Patient denies abdominal pain. Patient denies chest pain. Patient denies shortness of breath. Patient denies blood in his vomitus. Patient states his only vomited twice. Patient denies recent travel. Patient denies recent international travel. Patient denies exposure to the novel coronavirus. Patient denies sick contacts. Patient denies fever and chills. Patient denies cough. Patient denies diarrhea. Patient denies coming in contact with anybody with symptoms of the novel coronavirus. -: Sudden Severity scale (0 -10): 6 Consistency: constant Improves with: rest Worsens with: medication Associated Symptoms: denies other symptoms, diaphoresis, nausea/vomiting. denies: confusion, chest pain, cough, fever/chills, headaches, loss of appetite, malaise, rash, seizure, shortness of breath, syncope, weakness Treatments Prior to Arrival: none - Related Data Previous Rx's Medication Instructions Recorded Last Taken Type Folic Acid [Folvite] 1 mg PO QDAY #30 tablet 05/28/14 05/01/15 Rx traMADoL [Ultram 50 MG tab] 50 mg PO BID PRN #12 tablet 07/30/17 Unknown Rx traMADoL [Ultram 50 MG tab] 50 mg PO Q6HR PRN #20 tablet 08/31/17 Unknown Rx Promethazine [Phenergan] 25 mg PO Q6HR PRN #20 tab 09/19/17 Unknown Rx traMADoL [Ultram 50 MG tab] 50 mg PO Q6HR PRN #25 tablet 09/19/17 Unknown Rx Promethazine [Phenergan TAB] 25 mg PO Q8HR PRN #7 tab 10/19/17 Unknown Rx traMADoL [Ultram 50 MG tab] 50 mg PO Q6HR PRN #14 tablet 10/19/17 Unknown Rx Methadone [Dolophine] 10 mg PO Q12H 5 Days #10 tab 03/20/19 Unknown Rx Oxycodone HCl/Acetaminophen 1 each PO Q6HR PRN #10 tablet 04/10/19 Unknown Rx [Percocet 10/325 mg] Promethazine [Phenergan] 25 mg PO Q8HR PRN #21 tab 08/04/19 Unknown Rx traMADoL [Ultram 50 MG tab] 50 mg PO Q4HR PRN #14 tablet 08/04/19 Unknown Rx traMADoL [Ultram 50 MG tab] 50 mg PO Q8H PRN #6 tablet 09/05/19 Unknown Rx traMADoL [Ultram 50 MG tab] 50 mg PO Q6HR PRN #12 tablet 12/04/19 Unknown Rx Ondansetron [Zofran Odt] 4 mg PO Q8HR PRN #14 tab.rapdis 03/29/20 Unknown Rx oxyCODONE /ACETAMINOPHEN [Percocet 1 tab PO Q6HR PRN #14 tablet 03/29/20 Unknown Rx 5/325] traMADoL [Ultram 50 MG tab] 50 mg PO Q6HR PRN #12 tablet 06/29/20 Unknown Rx traMADoL [Ultram 50 MG tab] 50 mg PO Q6HR PRN #10 tablet 07/27/20 Unknown Rx Allergies Allergy/AdvReac Type Severity Reaction Status Date / Time metoclopramide HCl Allergy Hives Verified 10/19/17 07:28 [From Reglan] nalbuphine HCl [From Nubain] Allergy Hives Verified 10/19/17 07:28 ketorolac tromethamine AdvReac Hives Verified 10/19/17 07:28 [From Toradol] ED Review of Systems ROS: Stated complaint: SICKLE CELL PAIN/WITHDRAWALS Other details as noted in HPI Constitutional: diaphoresis. denies: chills, fever Eyes: denies: eye pain, eye discharge, vision change ENT: denies: ear pain, throat pain Respiratory: denies: cough, shortness of breath, wheezing Cardiovascular: denies: chest pain, palpitations Endocrine: no symptoms reported Gastrointestinal: as per HPI, nausea. denies: abdominal pain, diarrhea Genitourinary: denies: urgency, dysuria Musculoskeletal: as per HPI, back pain. 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, Right hip AVN - Surgical History Past Surgical History?: No - Family History Family history: no significant - Social History Smoking Status: Never Smoker Substance Use Type: None - Medications Home Medications: Home Medications Medication Instructions Recorded Confirmed Last Taken Type Folic Acid [Folvite] 1 mg PO QDAY #30 tablet 05/28/14 05/01/15 05/01/15 Rx traMADoL [Ultram 50 MG tab] 50 mg PO BID PRN #12 tablet 07/30/17 Unknown Rx traMADoL [Ultram 50 MG tab] 50 mg PO Q6HR PRN #20 tablet 08/31/17 Unknown Rx Promethazine [Phenergan] 25 mg PO Q6HR PRN #20 tab 09/19/17 Unknown Rx traMADoL [Ultram 50 MG tab] 50 mg PO Q6HR PRN #25 tablet 09/19/17 Unknown Rx Promethazine [Phenergan TAB] 25 mg PO Q8HR PRN #7 tab 10/19/17 Unknown Rx traMADoL [Ultram 50 MG tab] 50 mg PO Q6HR PRN #14 tablet 10/19/17 Unknown Rx Methadone [Dolophine] 10 mg PO Q12H 5 Days #10 tab 03/20/19 Unknown Rx Oxycodone HCl/Acetaminophen 1 each PO Q6HR PRN #10 tablet 04/10/19 Unknown Rx [Percocet 10/325 mg] Promethazine [Phenergan] 25 mg PO Q8HR PRN #21 tab 08/04/19 Unknown Rx traMADoL [Ultram 50 MG tab] 50 mg PO Q4HR PRN #14 tablet 06/03/20 Unknown Rx traMADoL [Ultram 50 MG tab] 50 mg PO Q8H PRN #6 tablet 09/05/19 Unknown Rx traMADoL [Ultram 50 MG tab] 50 mg PO Q6HR PRN #12 tablet 12/04/19 Unknown Rx Ondansetron [Zofran Odt] 4 mg PO Q8HR PRN #14 tab.rapdis 03/29/20 Unknown Rx oxyCODONE /ACETAMINOPHEN [Percocet 1 tab PO Q6HR PRN #14 tablet 03/29/20 Unknown Rx 5/325] traMADoL [Ultram 50 MG tab] 50 mg PO Q6HR PRN #12 tablet 06/29/20 Unknown Rx traMADoL [Ultram 50 MG tab] 50 mg PO Q6HR PRN #10 tablet 07/27/20 Unknown Rx ED Physical Exam - General Limitations: No Limitations General appearance: alert, in no apparent distress - Head Head exam: Present: atraumatic, normocephalic - Eye Eye exam: Present: normal appearance - ENT ENT exam: Present: mucous membranes moist - Neck Neck exam: Present: normal inspection - Respiratory Respiratory exam: Present: normal lung sounds bilaterally. Absent: respiratory distress - Cardiovascular Cardiovascular Exam: Present: regular rate, normal rhythm. Absent: systolic murmur, diastolic murmur, rubs, gallop - GI/Abdominal GI/Abdominal exam: Present: soft, normal bowel sounds - Rectal Rectal exam: Present: deferred - Extremities Exam Extremities exam: Present: normal inspection - Back Exam Back exam: Present: normal inspection - Neurological Exam Neurological exam: Present: alert, oriented X3 - Psychiatric Psychiatric exam: Present: normal affect, normal mood - Skin Skin exam: Present: warm, dry, intact, normal color. Absent: rash ED Course Vital Signs 07/27/20 07/27/20 20:53 22:50 Temperature 97.8 F Pulse Rate 77 77 Respiratory 16 17 Rate Blood Pressure 143/73 Blood Pressure 154/77 [Left] O2 Sat by Pulse 96 96 Oximetry - Reevaluation(s) Reevaluation #1: Patient has received 10 mg of morphine IM and Phenergan p.o. Patient states he is feeling much better. Patient states his vertigo. Patient states his pain has resolved. Patient states his nausea is resolved. Patient states diaphoresis is resolved. I discussed all results and clinical findings with patient. I discussed plan of care with patient. Patient agrees with plan of care. Patient is stable for discharge. Patient will be discharged home. Patient given discharge instructions. Patient voiced understanding of discharge instructions. 07/27/20 23:40 ED Medical Decision Making - Lab Data Result diagrams: 07/27/20 20:55 07/27/20 20:55 - Medical Decision Making Patient is a 55-year-old manifest emergency room for sickle cell crisis, back pain and opiate withdrawal. Patient requested morphine 10 mg IM and Phenergan p.o. Patient was given Phenergan and morphine for his symptoms resolved. Patient left the hospital asymptomatic. Patient states he is feeling much better. Patient responded well to treatment. Patient had labs done which were consistent with an elevated reticulocyte count and anemia. Patient's medical history unremarkable. Patient stable for discharge. Patient discharged home. Patient was given a refill of tramadol. . - Differential Diagnosis Sickle cell crisis, back pain, drug withdrawal. Critical care attestation.: If time is entered above; I have spent that time in minutes in the direct care of this critically ill patient, excluding procedure time. ED Disposition Clinical Impression: Sickle cell pain crisis, Nausea alone, Opiate withdrawal Anemia Qualifiers: Anemia type: unspecified type Qualified Code(s): D64.9 - Anemia, unspecified Disposition: DC-01 TO HOME OR SELFCARE Is pt being admited?: No Does the pt Need Aspirin: No Condition: Stable Instructions: Nausea, Adult, Hemolytic Anemia Additional Instructions: Patient to follow-up with primary care in 2 to 3 days. Patient to follow-up with concrete wall grinder operator in 2 to 3 days. Patient to rest. Patient to increase water. Patient to avoid strenuous exercise or heavy lifting until cleared by primary care and concrete wall grinder operator.. Patient to take Tylenol or ibuprofen as needed for pain. Patient to take meds as directed. Patient to return to the ER if condition worsens, changes or new symptoms arise. Prescriptions: traMADoL [Ultram 50 MG tab] 50 mg PO Q6HR PRN #10 tablet PRN Reason: Pain Time of Disposition: 23:42
[2020-07-27] MEDS ORDERED: PROMETHAZINE 25 MG TAB PO ONE (23:02)
[2020-07-27] MEDS ORDERED: MORPHINE 4 MG/1 ML INJ IM ONE (23:02)
[2020-07-28 01:23] VITALS: BP 154/77
== END 2020-07-28 00:10 | disposition home or self-care (01) ==
LOC: ED 20:30
DX: D57.00 Hb-SS disease with crisis, unspecified (principal); F11.23 Opioid dependence with withdrawal; R11.0 Nausea; Z79.899 Other long term (current) drug therapy; Z88.8 Allergy status to other drugs, medicaments and biological substances
CPT/HCPCS: 36415; 80053; 85007; 85025; 85045; 96372; 99283; J2270; Q0169

== ENCOUNTER 2020-08-29 21:20 | Emergency (ER) | payer MEDICARE ==
[2020-08-29 23:41] VITALS: BP 150/78
[2020-08-30] MEDS ORDERED: MORPHINE 2 MG/1 ML INJ IM ONE (00:59)
[2020-08-30] MEDS ORDERED: PROMETHAZINE 25 MG TAB PO ONE (00:59)
[2020-08-30] MEDS ORDERED: MORPHINE 4 MG/1 ML INJ ONE (01:01)
--- NOTE | 2020-08-30 01:46 | Emergency Department Report ---
ED General Adult HPI - General Chief complaint: Sickle Cell Crisis Stated complaint: SICKLE CELL PAIN Time Seen by Provider: 08/30/20 00:43 Source: patient Mode of arrival: Ambulatory Limitations: No Limitations - History of Present Illness Initial comments: 55-year-old -[place] male with a known history of sickle cell disorder having has been seen at this facility on multiple occasions presents emerged department complaining of a slowly emerging flareup for which he is seeking a pain evaluation. He requests injection of his usual pain cocktails or moved to follow-up with his doctor tomorrow which point time his medications can be refilled reports no chest pain, palpitations, shortness of breath, mops his, hematemesis hematochezia, fever, chills, sweats, nausea, vomiting, diarrhea. Radiation: non-radiation Severity scale (0 -10): 4 Quality: aching, dull Improves with: none Worsens with: none Associated Symptoms: denies: confusion, chest pain, cough, diaphoresis, malaise, nausea/vomiting, syncope, weakness Treatments Prior to Arrival: none - Related Data Previous Rx's Medication Instructions Recorded Last Taken Type Folic Acid [Folvite] 1 mg PO QDAY #30 tablet 05/28/14 05/01/15 Rx traMADoL [Ultram 50 MG tab] 50 mg PO BID PRN #12 tablet 07/30/17 Unknown Rx traMADoL [Ultram 50 MG tab] 50 mg PO Q6HR PRN #20 tablet 08/31/17 Unknown Rx Promethazine [Phenergan] 25 mg PO Q6HR PRN #20 tab 09/19/17 Unknown Rx traMADoL [Ultram 50 MG tab] 50 mg PO Q6HR PRN #25 tablet 09/19/17 Unknown Rx Promethazine [Phenergan TAB] 25 mg PO Q8HR PRN #7 tab 10/19/17 Unknown Rx traMADoL [Ultram 50 MG tab] 50 mg PO Q6HR PRN #14 tablet 10/19/17 Unknown Rx Methadone [Dolophine] 10 mg PO Q12H 5 Days #10 tab 03/20/19 Unknown Rx Oxycodone HCl/Acetaminophen 1 each PO Q6HR PRN #10 tablet 04/10/19 Unknown Rx [Percocet 10/325 mg] Promethazine [Phenergan] 25 mg PO Q8HR PRN #21 tab 08/04/19 Unknown Rx traMADoL [Ultram 50 MG tab] 50 mg PO Q4HR PRN #14 tablet 08/04/19 Unknown Rx traMADoL [Ultram 50 MG tab] 50 mg PO Q8H PRN #6 tablet 09/05/19 Unknown Rx traMADoL [Ultram 50 MG tab] 50 mg PO Q6HR PRN #12 tablet 12/04/19 Unknown Rx Ondansetron [Zofran Odt] 4 mg PO Q8HR PRN #14 tab.rapdis 03/29/20 Unknown Rx oxyCODONE /ACETAMINOPHEN [Percocet 1 tab PO Q6HR PRN #14 tablet 03/29/20 Unknown Rx 5/325] traMADoL [Ultram 50 MG tab] 50 mg PO Q6HR PRN #12 tablet 06/29/20 Unknown Rx traMADoL [Ultram 50 MG tab] 50 mg PO Q6HR PRN #10 tablet 07/27/20 Unknown Rx Allergies Allergy/AdvReac Type Severity Reaction Status Date / Time metoclopramide HCl Allergy Hives Verified 10/19/17 07:28 [From Reglan] nalbuphine HCl [From Nubain] Allergy Hives Verified 10/19/17 07:28 ketorolac tromethamine AdvReac Hives Verified 10/19/17 07:28 [From Toradol] ED Review of Systems ROS: Stated complaint: SICKLE CELL PAIN Other details as noted in HPI Comment: All other systems reviewed and negative 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, Right hip AVN - Surgical History Past Surgical History?: No - Social History Smoking Status: Never Smoker Substance Use Type: None - Medications Home Medications: Home Medications Medication Instructions Recorded Confirmed Last Taken Type Folic Acid [Folvite] 1 mg PO QDAY #30 tablet 05/28/14 05/01/15 05/01/15 Rx traMADoL [Ultram 50 MG tab] 50 mg PO BID PRN #12 tablet 07/30/17 Unknown Rx traMADoL [Ultram 50 MG tab] 50 mg PO Q6HR PRN #20 tablet 08/31/17 Unknown Rx Promethazine [Phenergan] 25 mg PO Q6HR PRN #20 tab 09/19/17 Unknown Rx traMADoL [Ultram 50 MG tab] 50 mg PO Q6HR PRN #25 tablet 09/19/17 Unknown Rx Promethazine [Phenergan TAB] 25 mg PO Q8HR PRN #7 tab 10/19/17 Unknown Rx traMADoL [Ultram 50 MG tab] 50 mg PO Q6HR PRN #14 tablet 10/19/17 Unknown Rx Methadone [Dolophine] 10 mg PO Q12H 5 Days #10 tab 03/20/19 Unknown Rx Oxycodone HCl/Acetaminophen 1 each PO Q6HR PRN #10 tablet 04/10/19 Unknown Rx [Percocet 10/325 mg] Promethazine [Phenergan] 25 mg PO Q8HR PRN #21 tab 08/04/19 Unknown Rx traMADoL [Ultram 50 MG tab] 50 mg PO Q4HR PRN #14 tablet 08/04/19 Unknown Rx traMADoL [Ultram 50 MG tab] 50 mg PO Q8H PRN #6 tablet 09/05/19 Unknown Rx traMADoL [Ultram 50 MG tab] 50 mg PO Q6HR PRN #12 tablet 12/04/19 Unknown Rx Ondansetron [Zofran Odt] 4 mg PO Q8HR PRN #14 tab.rapdis 03/29/20 Unknown Rx oxyCODONE /ACETAMINOPHEN [Percocet 1 tab PO Q6HR PRN #14 tablet 03/29/20 Unknown Rx 5/325] traMADoL [Ultram 50 MG tab] 50 mg PO Q6HR PRN #12 tablet 06/29/20 Unknown Rx traMADoL [Ultram 50 MG tab] 50 mg PO Q6HR PRN #10 tablet 07/27/20 Unknown Rx ED Physical Exam - General Limitations: No Limitations General appearance: alert, in no apparent distress - Head Head exam: Present: atraumatic, normocephalic - Eye Eye exam: Present: normal appearance - ENT ENT exam: Present: mucous membranes moist - Neck Neck exam: Present: normal inspection - Respiratory Respiratory exam: Present: normal lung sounds bilaterally. Absent: respiratory distress - Cardiovascular Cardiovascular Exam: Present: regular rate, normal rhythm. Absent: systolic murmur, diastolic murmur, rubs, gallop - GI/Abdominal GI/Abdominal exam: Present: soft, normal bowel sounds - Rectal Rectal exam: Present: deferred - Extremities Exam Extremities exam: Present: normal inspection - Back Exam Back exam: Present: normal inspection - Neurological Exam Neurological exam: Present: alert, oriented X3 - Psychiatric Psychiatric exam: Present: normal affect, normal mood - Skin Skin exam: Present: warm, dry, intact, normal color. Absent: rash ED Course Vital Signs 08/29/20 08/30/20 23:01 02:16 Temperature 98.8 F Pulse Rate 84 86 Respiratory 18 16 Rate Blood Pressure 150/78 O2 Sat by Pulse 96 98 Oximetry ED Medical Decision Making - Medical Decision Making 55-year-old -[place] male with a known history of sickle cell disease presents to the emergency department with the classic pain syndrome for 7-year-old. Did consider polyarthralgia, acute chest, splenic sequestration and other emergent complications of sickle cell disease. Consider alternate etiologies of the patient's pain to include fracture, muscle skeletal pain, infection, abscess, other ischemic etiology but doubt these were likely due to the presentations, the patient's history and the patient being adamant that either of these were recurrent issue. Mr. Root states he only needed analgesic control to get him through to tomorrow as we can get to his school social worker for his normal treatment therapy. Offered an acute chest pain work-up in conjunction with x-rays and labs but he deemed this to be not necessary Critical care attestation.: If time is entered above; I have spent that time in minutes in the direct care of this critically ill patient, excluding procedure time. ED Disposition Clinical Impression: Sickle cell pain crisis Disposition: DC-01 TO HOME OR SELFCARE Is pt being admited?: No Does the pt Need Aspirin: No Condition: Stable Instructions: Sickle Cell Testing Additional Instructions: To be sure to keep appointment with your primary care provider in the morning for further evaluation and management of his sickle cell anemia Referrals: PRIMARY CAREMD [Primary Care Provider] - 3-5 Days
== END 2020-08-30 02:16 | disposition home or self-care (01) ==
LOC: ED 21:20
DX: D57.00 Hb-SS disease with crisis, unspecified (principal); Z79.899 Other long term (current) drug therapy; Z88.8 Allergy status to other drugs, medicaments and biological substances
CPT/HCPCS: 96372; 99282; J2270; Q0169

== ENCOUNTER 2020-10-01 03:07 | Emergency (ER) | payer MEDICARE ==
[2020-10-01 03:54] VITALS: BP 117/67
[2020-10-01] MEDS ORDERED: MORPHINE 4 MG/1 ML INJ IM ONE ×2 (04:54→04:57)
[2020-10-01] MEDS ORDERED: PROMETHAZINE 25 MG TAB PO ONE (04:54)
--- NOTE | 2020-10-01 05:00 | Emergency Department Report ---
ED General Adult HPI - General Chief complaint: Sickle Cell Crisis Stated complaint: SICKLE CELL FLARE UP/BACK Source: patient Mode of arrival: Ambulatory Limitations: No Limitations - History of Present Illness Initial comments: Patient is a 55-year-old -[place] male with a history of chronic pain due to sickle cell anemia with occasional exacerbations who presents to the ED with acute exacerbation of his chronic sickle cell pain characterized by low back pain strenuous physical activity. Patient states that he took his regular pain medications 24 hours ago and ran out of it. Patient states that he has an appointment with his primary care physician in 24 hours and would like to get his pain under control as he awaits to see his primary care physician in 24 ho urs to refill his prescriptions for pain. Patient states that his symptoms are typical of his chronic pain exacerbation without any worsening symptoms. Patient denies chest pain, shortness of breath, dizziness, syncope, fever, chills, nausea, vomiting, numbness and tingling or weakness of lower and upper extremities bilaterally. MD Complaint: Low back pain, chronic sickling pain -: Sudden, days(s) (2) Location: back (lower) Radiation: non-radiation Severity scale (0 -10): 7 Quality: aching, sharp Consistency: constant Improves with: none Worsens with: movement Associated Symptoms: denies other symptoms. denies: confusion, chest pain, cough, diaphoresis, fever/chills, headaches, malaise, nausea/vomiting, rash, seizure, shortness of breath, syncope, weakness Treatments Prior to Arrival: none - Related Data Previous Rx's Medication Instructions Recorded Last Taken Type Folic Acid [Folvite] 1 mg PO QDAY #30 tablet 05/28/14 05/01/15 Rx traMADoL [Ultram 50 MG tab] 50 mg PO BID PRN #12 tablet 07/30/17 Unknown Rx traMADoL [Ultram 50 MG tab] 50 mg PO Q6HR PRN #20 tablet 08/31/17 Unknown Rx Promethazine [Phenergan] 25 mg PO Q6HR PRN #20 tab 09/19/17 Unknown Rx traMADoL [Ultram 50 MG tab] 50 mg PO Q6HR PRN #25 tablet 09/19/17 Unknown Rx Promethazine [Phenergan TAB] 25 mg PO Q8HR PRN #7 tab 10/19/17 Unknown Rx traMADoL [Ultram 50 MG tab] 50 mg PO Q6HR PRN #14 tablet 10/19/17 Unknown Rx Methadone [Dolophine] 10 mg PO Q12H 5 Days #10 tab 03/20/19 Unknown Rx Oxycodone HCl/Acetaminophen 1 each PO Q6HR PRN #10 tablet 04/10/19 Unknown Rx [Percocet 10/325 mg] Promethazine [Phenergan] 25 mg PO Q8HR PRN #21 tab 08/04/19 Unknown Rx traMADoL [Ultram 50 MG tab] 50 mg PO Q4HR PRN #14 tablet 08/04/19 Unknown Rx traMADoL [Ultram 50 MG tab] 50 mg PO Q8H PRN #6 tablet 09/05/19 Unknown Rx traMADoL [Ultram 50 MG tab] 50 mg PO Q6HR PRN #12 tablet 12/04/19 Unknown Rx Ondansetron [Zofran Odt] 4 mg PO Q8HR PRN #14 tab.rapdis 03/29/20 Unknown Rx oxyCODONE /ACETAMINOPHEN [Percocet 1 tab PO Q6HR PRN #14 tablet 03/29/20 Unknown Rx 5/325] traMADoL [Ultram 50 MG tab] 50 mg PO Q6HR PRN #12 tablet 06/29/20 Unknown Rx traMADoL [Ultram 50 MG tab] 50 mg PO Q6HR PRN #10 tablet 07/27/20 Unknown Rx Allergies Allergy/AdvReac Type Severity Reaction Status Date / Time metoclopramide HCl Allergy Hives Verified 10/19/17 07:28 [From Reglan] nalbuphine HCl [From Nubain] Allergy Hives Verified 10/19/17 07:28 ketorolac tromethamine AdvReac Hives Verified 10/19/17 07:28 [From Toradol] ED Review of Systems ROS: Stated complaint: SICKLE CELL FLARE UP/BACK Other details as noted in HPI Constitutional: denies: chills, fever Eyes: denies: eye pain, eye discharge, vision change ENT: denies: ear pain, throat pain Respiratory: denies: cough, shortness of breath, wheezing Cardiovascular: denies: chest pain, palpitations Endocrine: no symptoms reported Gastrointestinal: denies: abdominal pain, nausea, diarrhea Genitourinary: denies: urgency, dysuria Musculoskeletal: back pain (Low back pain), arthralgia, myalgia. denies: joint swelling Skin: denies: rash, lesions Neurological: denies: headache, weakness, paresthesias Psychiatric: denies: anxiety, depression Hematological/Lymphatic: denies: easy bleeding, easy bruising 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, Right hip AVN - Surgical History Past Surgical History?: No - Social History Smoking Status: Never Smoker Substance Use Type: None - Medications Home Medications: Home Medications Medication Instructions Recorded Confirmed Last Taken Type Folic Acid [Folvite] 1 mg PO QDAY #30 tablet 05/28/14 05/01/15 05/01/15 Rx traMADoL [Ultram 50 MG tab] 50 mg PO BID PRN #12 tablet 07/30/17 Unknown Rx traMADoL [Ultram 50 MG tab] 50 mg PO Q6HR PRN #20 tablet 08/31/17 Unknown Rx Promethazine [Phenergan] 25 mg PO Q6HR PRN #20 tab 09/19/17 Unknown Rx traMADoL [Ultram 50 MG tab] 50 mg PO Q6HR PRN #25 tablet 09/19/17 Unknown Rx Promethazine [Phenergan TAB] 25 mg PO Q8HR PRN #7 tab 10/19/17 Unknown Rx traMADoL [Ultram 50 MG tab] 50 mg PO Q6HR PRN #14 tablet 10/19/17 Unknown Rx Methadone [Dolophine] 10 mg PO Q12H 5 Days #10 tab 03/20/19 Unknown Rx Oxycodone HCl/Acetaminophen 1 each PO Q6HR PRN #10 tablet 04/10/19 Unknown Rx [Percocet 10/325 mg] Promethazine [Phenergan] 25 mg PO Q8HR PRN #21 tab 08/04/19 Unknown Rx traMADoL [Ultram 50 MG tab] 50 mg PO Q4HR PRN #14 tablet 08/04/19 Unknown Rx traMADoL [Ultram 50 MG tab] 50 mg PO Q8H PRN #6 tablet 09/05/19 Unknown Rx traMADoL [Ultram 50 MG tab] 50 mg PO Q6HR PRN #12 tablet 12/04/19 Unknown Rx Ondansetron [Zofran Odt] 4 mg PO Q8HR PRN #14 tab.rapdis 03/29/20 Unknown Rx oxyCODONE /ACETAMINOPHEN [Percocet 1 tab PO Q6HR PRN #14 tablet 03/29/20 Unknown Rx 5/325] traMADoL [Ultram 50 MG tab] 50 mg PO Q6HR PRN #12 tablet 06/29/20 Unknown Rx traMADoL [Ultram 50 MG tab] 50 mg PO Q6HR PRN #10 tablet 07/27/20 Unknown Rx ED Physical Exam - General Limitations: No Limitations General appearance: alert, in no apparent distress - Head Head exam: Present: atraumatic, normocephalic, normal inspection - Eye Eye exam: Present: normal appearance, PERRL, EOMI Pupils: Present: normal accommodation - ENT ENT exam: Present: normal exam, normal orophraynx, mucous membranes moist, TM's normal bilaterally, normal external ear exam - Neck Neck exam: Present: normal inspection, full ROM - Respiratory Respiratory exam: Present: normal lung sounds bilaterally. Absent: respiratory distress, wheezes, rales, rhonchi, chest wall tenderness, accessory muscle use, prolonged expiratory - Cardiovascular Cardiovascular Exam: Present: normal rhythm, tachycardia, normal heart sounds. Absent: systolic murmur, diastolic murmur, rubs, gallop - GI/Abdominal GI/Abdominal exam: Present: soft, normal bowel sounds. Absent: tenderness, guarding, rebound, hyperactive bowel sounds, hypoactive bowel sounds, o rganomegaly, bruit - Extremities Exam Extremities exam: Present: normal inspection, full ROM, normal capillary refill - Back Exam Back exam: Present: normal inspection, full ROM, tenderness (Palpable lumbosacral paraspinal musculoskeletal tenderness), muscle spasm, paraspinal tenderness. Absent: CVA tenderness (L), vertebral tenderness - Neurological Exam Neurological exam: Present: alert, oriented X3, CN II-XII intact, normal gait, reflexes normal - Psychiatric Psychiatric exam: Present: normal affect, normal mood - Skin Skin exam: Present: warm, dry, intact, normal color. Absent: rash ED Course Vital Signs 10/01/20 03:51 Temperature 98.2 F Pulse Rate 101 H Respiratory 18 Rate Blood Pressure 117/67 [Left] O2 Sat by Pulse 97 Oximetry ED Medical Decision Making - Medical Decision Making This is a 55-year-old -[place] male with a history of chronic pain due to sickle cell anemia with occasional exacerbations who presents to the ED with acute exacerbation of his chronic sickle cell pain characterized by low back pain strenuous physical activity. Patient states that he took his regular pain medications 24 hours ago and ran out of it. Patient states that he has an appointment with his primary care physician in 24 hours and would like to get hi s pain under control as he awaits to see his primary care physician in 24 hours to refill his prescriptions for pain. Patient states that his symptoms are typical of his chronic pain exacerbation without any worsening symptoms. In the ED, patient is alert and oriented x3 and is not in any distress. Patient was treated for pain in the ED and discharged home on the patient's baseline his vital signs:. Patient is ambulatory fully in the ED with no difficulties this pain is well controlled. Patient was advised to follow-up with his primary care physician as previously scheduled for the next day or return to the ED immediately if symptoms get worse. - Differential Diagnosis Chronic pain syndrome; muscle spasm; muscle strain; Critical care attestation.: If time is entered above; I have spent that time in minutes in the direct care of this critically ill patient, excluding procedure time. ED Disposition Clinical Impression: Sickle cell pain crisis, Chronic pain syndrome Disposition: DC-01 TO HOME OR SELFCARE Is pt being admited?: No Does the pt Need Aspirin: No Condition: Stable Instructions: Pain Medicine Instructions, [id number], Chronic Pain, Adult Additional Instructions: Take your regular pain medications at home, drink plenty of fluids, follow-up with the primary care physician in 2 to 3 days for reevaluation. Return to the ED immediately if symptoms get worse. Referrals: HERNAN QURESHI MD [Staff Physician] - 3-5 Days Time of Disposition: 05:00 Print Language: DANISH
== END 2020-10-01 07:51 | disposition home or self-care (01) ==
LOC: ED 03:07
DX: D57.00 Hb-SS disease with crisis, unspecified (principal); G89.4 Chronic pain syndrome; Z88.6 Allergy status to analgesic agent; Z88.8 Allergy status to other drugs, medicaments and biological substances
CPT/HCPCS: 96372; 99282; J2270; Q0169

== ENCOUNTER 2020-11-19 13:37 | Emergency (ER) | payer MEDICARE ==
[2020-11-19 13:45] VITALS: BP 151/64
--- NOTE | 2020-11-19 14:09 | Emergency Department Report ---
ED General Adult HPI - General Chief complaint: Sickle Cell Crisis Stated complaint: SICKLE CELL Time Seen by Provider: 11/19/20 13:47 Source: patient Mode of arrival: Ambulatory Limitations: No Limitations - History of Present Illness Initial comments: The patient was evaluated in the emergency department for symptoms described in the history of present illness. He/she was evaluated in the context of the global COVID-19 pandemic, which necessitated consideration that the patient might be at risk for infection with the virus that causes COVID-19. Institutional protocols and algorithms that pertain to the evaluation of patients at risk for COVID-19 are in a state of rapid change based on information released by regulatory bodies including the CDC and federal and state organizations. These policies and algorithms were followed during the patient's care in the emergency department. Please note that these policies, procedures and recommendations changed on a rapid basis. 55-year-old -[place] male with history of sickle cell presents to the emergency room for back pain.. Patient reports he recently traveled from [place] to [facility]. He does admit to nausea but no vomiting no abdominal pain no chest pain no shortness of breath no fever or chills. Patient reports a past history of 2 transfusion in his life and that was back in July 2008. Does have an history of avascular necrosis of the right femoral head that is being followed by Dr. Howard his primary care provider and atg architect. Patient also reports that his atg architect said that he has some small compression damage to his back no trauma denies overuse. 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 Patient is requesting a prescription for tramadol to get him through to his next pain management appointment. Patient reports he comes in he will get morphine 10 mg IM and Phenergan 25 p.o. Onset/Timin -: days(s) Location: back Severity scale (0 -10): 8 Quality: aching Consistency: constant Improves with: medication Worsens with: none Associated Symptoms: nausea/vomiting (No vomiting). denies: confusion, chest pain, cough, fever/chills, headaches, loss of appetite, shortness of breath Treatments Prior to Arrival: none - Related Data Previous Rx's Medication Instructions Recorded Last Taken Type Folic Acid [Folvite] 1 mg PO QDAY #30 tablet 05/28/14 05/01/15 Rx traMADoL [Ultram 50 MG tab] 50 mg PO BID PRN #12 tablet 07/30/17 Unknown Rx traMADoL [Ultram 50 MG tab] 50 mg PO Q6HR PRN #20 tablet 08/31/17 Unknown Rx traMADoL [Ultram 50 MG tab] 50 mg PO Q6HR PRN #25 tablet 09/19/17 Unknown Rx Promethazine [Phenergan TAB] 25 mg PO Q8HR PRN #7 tab 10/19/17 Unknown Rx traMADoL [Ultram 50 MG tab] 50 mg PO Q6HR PRN #14 tablet 10/19/17 Unknown Rx Methadone [Dolophine] 10 mg PO Q12H 5 Days #10 tab 03/20/19 Unknown Rx Oxycodone HCl/Acetaminophen 1 each PO Q6HR PRN #10 tablet 04/10/19 Unknown Rx [Percocet 10/325 mg] Promethazine [Phenergan] 25 mg PO Q8HR PRN #21 tab 08/04/19 Unknown Rx traMADoL [Ultram 50 MG tab] 50 mg PO Q4HR PRN #14 tablet 08/04/19 Unknown Rx traMADoL [Ultram 50 MG tab] 50 mg PO Q8H PRN #6 tablet 09/05/19 Unknown Rx traMADoL [Ultram 50 MG tab] 50 mg PO Q6HR PRN #12 tablet 12/04/19 Unknown Rx Ondansetron [Zofran Odt] 4 mg PO Q8HR PRN #14 tab.rapdis 03/29/20 Unknown Rx oxyCODONE /ACETAMINOPHEN [Percocet 1 tab PO Q6HR PRN #14 tablet 03/29/20 Unknown Rx 5/325] traMADoL [Ultram 50 MG tab] 50 mg PO Q6HR PRN #12 tablet 06/29/20 Unknown Rx traMADoL [Ultram 50 MG tab] 50 mg PO Q6HR PRN #10 tablet 07/27/20 Unknown Rx Promethazine [Phenergan] 25 mg PO Q6HR PRN #20 tab 11/19/20 Unknown Rx traMADoL [Ultram 50 MG tab] 50 mg PO Q6HR PRN #12 tablet 11/19/20 Unknown Rx Allergies Allergy/AdvReac Type Severity Reaction Status Date / Time metoclopramide HCl Allergy Hives Verified 10/19/17 07:28 [From Reglan] nalbuphine HCl [From Nubain] Allergy Hives Verified 10/19/17 07:28 ketorolac tromethamine AdvReac Hives Verified 10/19/17 07:28 [From Toradol] ED Review of Systems ROS: Stated complaint: SICKLE CELL Other details as noted in HPI Comment: All other systems reviewed and negative ED Past Medical Hx - Past Medical History Hx Sickle Cell Disease: Yes 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, Right hip AVN - Social History Smoking Status: Never Smoker Substance Use Type: None - Medications Home Medications: Home Medications Medication Instructions Recorded Confirmed Last Taken Type Folic Acid [Folvite] 1 mg PO QDAY #30 tablet 05/28/14 05/01/15 05/01/15 Rx traMADoL [Ultram 50 MG tab] 50 mg PO BID PRN #12 tablet 07/30/17 Unknown Rx traMADoL [Ultram 50 MG tab] 50 mg PO Q6HR PRN #20 tablet 08/31/17 Unknown Rx traMADoL [Ultram 50 MG tab] 50 mg PO Q6HR PRN #25 tablet 09/19/17 Unknown Rx Promethazine [Phenergan TAB] 25 mg PO Q8HR PRN #7 tab 10/19/17 Unknown Rx traMADoL [Ultram 50 MG tab] 50 mg PO Q6HR PRN #14 tablet 10/19/17 Unknown Rx Methadone [Dolophine] 10 mg PO Q12H 5 Days #10 tab 03/20/19 Unknown Rx Oxycodone HCl/Acetaminophen 1 each PO Q6HR PRN #10 tablet 04/10/19 Unknown Rx [Percocet 10/325 mg] Promethazine [Phenergan] 25 mg PO Q8HR PRN #21 tab 08/04/19 Unknown Rx traMADoL [Ultram 50 MG tab] 50 mg PO Q4HR PRN #14 tablet 08/04/19 Unknown Rx traMADoL [Ultram 50 MG tab] 50 mg PO Q8H PRN #6 tablet 09/05/19 Unknown Rx traMADoL [Ultram 50 MG tab] 50 mg PO Q6HR PRN #12 tablet 12/04/19 Unknown Rx Ondansetron [Zofran Odt] 4 mg PO Q8HR PRN #14 tab.rapdis 03/29/20 Unknown Rx oxyCODONE /ACETAMINOPHEN [Percocet 1 tab PO Q6HR PRN #14 tablet 03/29/20 Unknown Rx 5/325] traMADoL [Ultram 50 MG tab] 50 mg PO Q6HR PRN #12 tablet 06/29/20 Unknown Rx traMADoL [Ultram 50 MG tab] 50 mg PO Q6HR PRN #10 tablet 07/27/20 Unknown Rx Promethazine [Phenergan] 25 mg PO Q6HR PRN #20 tab 11/19/20 Unknown Rx traMADoL [Ultram 50 MG tab] 50 mg PO Q6HR PRN #12 tablet 11/19/20 Unknown Rx ED Physical Exam - General Limitations: No Limitations General appearance: alert, in no apparent distress - Head Head exam: Present: atraumatic, normocephalic - Eye Eye exam: Present: normal appearance - ENT ENT exam: Present: normal external ear exam - Neck Neck exam: Present: full ROM. Absent: tenderness - Respiratory Respiratory exam: Present: normal lung sounds bilaterally. Absent: respiratory distress, chest wall tenderness, accessory muscle use - Cardiovascular Cardiovascular Exam: Present: regular rate - GI/Abdominal GI/Abdominal exam: Present: soft. Absent: distended, tenderness - Extremities Exam Extremities exam: Present: normal inspection, full ROM - Back Exam Back exam: Present: full ROM, tenderness - Neurological Exam Neurological exam: Present: alert, oriented X3 - Psychiatric Psychiatric exam: Present: normal affect, normal mood - Skin Skin exam: Present: warm, dry, intact, normal color. Absent: rash ED Course Vital Signs 11/19/20 13:44 Temperature 98.4 F Pulse Rate 71 Respiratory 18 Rate Blood Pressure 151/64 [Right] O2 Sat by Pulse 92 Oximetry ED Medical Decision Making - Medical Decision Making 55-year-old -[place] male with history of sickle cell presents to the emergency room for back pain.. Patient reports he recently traveled from [place] to [facility]. He does admit to nausea but no vomiting no abdominal pain no chest pain no shortness of breath no fever or chills. Patient reports a past history of 2 transfusion in his life and that was back in July 2008. Does have an history of avascular necrosis of the right femoral head that is being followed by Dr. Howard his primary care provider and atg architect. Patient also reports that his atg architect said that he has some small compression damage to his back no trauma denies overuse. 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 Patient is requesting a prescription for tramadol to get him through to his next pain management appointment. Patient reports he comes in he will get morphine 10 mg IM and Phenergan 25 p.o. Patient given morphine 10 mg IM Phenergan 25 mg p.o. Patient be discharged home on tramadol 50 mg every 6-8 hours and Phenergan 25 mg. 68 hours. Patient is to follow-up with his atg architect in the next 2 to 3 days and as well as his pain management provider. Instructed patient to increase his water intake. Avoid lifting heavy objects. Patient verbalized understanding Critical care attestation.: If time is entered above; I have spent that time in minutes in the direct care of this critically ill patient, excluding procedure time. ED Disposition Clinical Impression: Sickle cell pain crisis Disposition: 01 HOME / SELF CARE / HOMELESS Is pt being admited?: No Does the pt Need Aspirin: No Condition: Stable Additional Instructions: Please take medications as prescribed. Increase your water intake. Avoid lifting heavy objects. Follow-up with your primary care provider/atg architect in the next 2 to 3 days as well as your pain management provider. Prescriptions: Promethazine [Phenergan] 25 mg PO Q6HR PRN #20 tab PRN Reason: Nausea traMADoL [Ultram 50 MG tab] 50 mg PO Q6HR PRN #12 tablet PRN Reason: Pain Referrals: VAUGHN HOWARD JR, MD [Referring] - 3-5 Days Forms: Work/School Release Form(ED) Time of Disposition: 14:28
[2020-11-19] MEDS ORDERED: PROMETHAZINE 25 MG TAB PO ONE (14:10)
[2020-11-19] MEDS ORDERED: MORPHINE 4 MG/1 ML INJ IM ONE (14:10)
== END 2020-11-19 14:58 | disposition home or self-care (01) ==
LOC: ED 13:37
DX: D57.219 Sickle-cell/Hb-C disease with crisis, unspecified (principal); Z88.8 Allergy status to other drugs, medicaments and biological substances
CPT/HCPCS: 96372; 99282; J2270; Q0169